=== PATIENT | male | born 1965 | race Hispanic/Latino ===

== ENCOUNTER → 2017-11-11 | Day surgery (SDC) | payer OTHER ==
[~2017-11-11] MED LIST: MIDAZOLAM HCL 2 MG/2 ML INJ ONE; PROPOFOL 200 MG/20 ML VIAL IV ONE; Ringers Lactate 1,000 ML IV ONE
--- OUTSIDE RECORDS SUMMARY | 2017-11-11 07:45 | XMS REPORT ---
:1965 Author Organization eClinicalWorks Care Team Providers Name Role Phone Shreyas Iain Provider Role Unavailable Allergies No Known Allergies Problems Problem Type Condition Code Onset Dates Condition Status Problem HTN, goal below 140/90 I10 Active Problem Mixed hyperlipidemia E78.2 Active Problem Hepatitis C virus infection without B19.20 Active hepatic coma, unspecified chronicity Assessment HTN, goal below 140/90 I10 Active Assessment Hepatitis C virus infection without B19.20 Active hepatic coma, unspecified chronicity Assessment Mixed hyperlipidemia E78.2 Active Medications Medication Code Code Instructions Start End Status Dosage System Date Date Losartan ND 07868337063 100 MG Orally Active 1 tablet Potassium Once a day Lovastatin ND [id number] 20 MG Orally Active 1 tablet Once a day with the evening meal Results No Known Results Summary Purpose eClinicalWorks Submission
--- OUTSIDE RECORDS SUMMARY | 2017-11-11 07:45 | XMS REPORT ---
:1965 Author Organization eClinicalWorks Care Team Providers Name Role Phone Surinder Mckeon Provider Role Unavailable Allergies No Known Allergies Problems Problem Type Condition Code Onset Dates Condition Status Problem HTN, goal below 140/90 I10 Active Problem Mixed hyperlipidemia E78.2 Active Problem Hepatitis C virus infection without B19.20 Active hepatic coma, unspecified chronicity Medications No Known Medications Results No Known Results Summary Purpose eClinicalWorks Submission
--- OUTSIDE RECORDS SUMMARY | 2017-11-11 07:45 | XMS REPORT ---
:1965 Author Organization [facility] Address [address] [place] [address] Care Team Providers Name Role Phone NINFA GOULD Unavailable Unavailable RON RICKY THELMA Unavailable Unavailable Problems This patient has no known problems. Allergies, Adverse Reactions, Alerts This patient has no known allergies or adverse reactions. Medications This patient has no known medications. Results Test Description Test Time Test Comments Text Results Atomic Results Result Comments URINE CULTURE 2016-12-05 13:17:00 Test Item Value Reference Range Comments CULTURE (BEAKER) (test ztem=5315) No growth COMPREHENSIVE METABOLIC [id number] 08:09:00 Test Item Value Reference Range Comments TOTAL PROTEIN (BEAKER) 7.0 gm/dL 6.0-8.3 (test ltoj=883) ALBUMIN (BEAKER) (test 3.3 g/dL 3.5-5.0 wzcy=6476) ALKALINE PHOSPHATASE 64 U/L 40-150 (BEAKER) (test vazr=182) BILIRUBIN TOTAL (BEAKER) 0.8 mg/dL 0.2-1.2 (test ogzr=453) SODIUM (BEAKER) (test 136 meq/L 136-145 nqui=188) POTASSIUM (BEAKER) (test 4.2 meq/L 3.5-5.1 rptl=219) CHLORIDE (BEAKER) (test 100 meq/L 98-107 qmoh=348) CO2 (BEAKER) (test 26 meq/L 22-29 hqvi=474) BLOOD UREA NITROGEN 14 mg/dL 7-21 (BEAKER) (test graj=228) CREATININE (BEAKER) (test 0.86 mg/dL 0.57-1.25 rxbe=627) GLUCOSE RANDOM (BEAKER) 94 mg/dL 70-105 (test akvl=730) CALCIUM (BEAKER) (test 8.7 mg/dL 8.4-10.2 yozx=638) AST (SGOT) (BEAKER) (test 27 U/L 5-34 ppho=598) ALT (SGPT) (BEAKER) (test 38 U/L 6-55 dbbm=112) EGFR (BEAKER) (test 93 mL/min/1.73 sq m ESTIMATED GFR IS NOT chcu=4191) ACCURATE CREATININE CLEARANCE IN PREDICTING GLOMERULAR FILTRATION RATE. ESTIMATED GFR IS NOT APPLICABLE FOR DIALYSIS PATIENTS. CBC W/PLT COUNT & AUTO [id number] 07:53:00 Test Item Value Reference Range Comments WHITE BLOOD CELL COUNT (BEAKER) (test ohkm=711) 10.3 K/ L 3.5-10.5 RED BLOOD CELL COUNT (BEAKER) (test bxfx=734) 4.00 M/ L 4.63-6.08 HEMOGLOBIN (BEAKER) (test bpba=001) 12.8 GM/DL 13.7-17.5 HEMATOCRIT (BEAKER) (test dcjt=583) 39.0 % 40.1-51.0 MEAN CORPUSCULAR VOLUME (BEAKER) (test tpdj=068) 97.5 fL 79.0-92.2 MEAN CORPUSCULAR HEMOGLOBIN (BEAKER) (test 32.0 pg 25.7-32.2 zidv=992) MEAN CORPUSCULAR HEMOGLOBIN CONC (BEAKER) (test 32.8 GM/DL 32.3-36.5 umuh=878) RED CELL DISTRIBUTION WIDTH (BEAKER) (test 12.9 % 11.6-14.4 tjry=208) PLATELET COUNT (BEAKER) (test eyhf=572) 519 K/CU MM 150-450 MEAN PLATELET VOLUME (BEAKER) (test vzbr=455) 8.7 fL 9.4-12.4 NUCLEATED RED BLOOD CELLS (BEAKER) (test 0 /100 WBC 0-0 cnwz=080) NEUTROPHILS RELATIVE PERCENT (BEAKER) (test 69 % abyo=059) LYMPHOCYTES RELATIVE PERCENT (BEAKER) (test 14 % cxih=210) MONOCYTES RELATIVE PERCENT (BEAKER) (test 11 % wayi=913) EOSINOPHILS RELATIVE PERCENT (BEAKER) (test 3 % rbqt=528) BASOPHILS RELATIVE PERCENT (BEAKER) (test 1 % xxuw=395) NEUTROPHILS ABSOLUTE COUNT (BEAKER) (test 7.07 K/ L 1.78-5.38 hcba=864) LYMPHOCYTES ABSOLUTE COUNT (BEAKER) (test 1.41 K/ L 1.32-3.57 mffc=950) MONOCYTES ABSOLUTE COUNT (BEAKER) (test 1.12 K/ L 0.30-0.82 ifjf=717) EOSINOPHILS ABSOLUTE COUNT (BEAKER) (test 0.27 K/ L 0.04-0.54 hokx=952) BASOPHILS ABSOLUTE COUNT (BEAKER) (test 0.07 K/ L 0.01-0.08 phzl=554) IMMATURE GRANULOCYTES-RELATIVE PERCENT (BEAKER) 4 % 0-1 (test zmbv=5353) PROTHROMBIN [id number] 06:49:00 Test Item Value Reference Range Comments PROTIME (BEAKER) (test kwma=164) 15.9 seconds 11.7-14.7 INR (BEAKER) (test cyzv=263) 1.3 <=5.9 RECOMMENDED COUMADIN/WARFARIN INR THERAPY RANGESSTANDARD DOSE: 2.0 - 3.0 Includes: PROPHYLAXIS forvenous thrombosis, systemic embolization; TREATMENT for venous thrombosis and/or pulmonary embolus.HIGH RISK: Target INR is 2.5-3.5 for patients with mechanical heart valves.RAPID STREP A [id number] 17:49: 00 Test Item Value Reference Range Comments STREP A ANTIGEN (BEAKER) (test qafo=024) Negative Negative URINALYSIS W/ [id number] 17:39:00 Test Item Value Reference Range Comments COLOR (BEAKER) (test iaky=988) Light Yellow CLARITY (BEAKER) (test wike=110) Clear SPECIFIC GRAVITY UA (BEAKER) (test 1.004 1.001-1.035 mmyx=860) PH UA (BEAKER) (test hkfl=775) 6.0 5.0-8.0 PROTEIN UA (BEAKER) (test bxti=024) Negative Negative GLUCOSE UA (BEAKER) (test lnwm=222) Negative Negative KETONES UA (BEAKER) (test ofrn=785) Negative Negative BILIRUBIN UA (BEAKER) (test yzid=057) Negative Negative BLOOD UA (BEAKER) (test gpyn=864) Negative Negative NITRITE UA (BEAKER) (test clxn=044) Negative Negative LEUKOCYTE ESTERASE UA (BEAKER) (test Negative Negative hein=515) UROBILINOGEN UA (BEAKER) (test yrpw=030) 2.0 mg/dL 0.2-1.0 RBC UA (BEAKER) (test rbeh=360) 0 /HPF WBC UA (BEAKER) (test bmiw=800) < /HPF SQUAMOUS EPITHELIAL (BEAKER) (test < /HPF idzo=944) SOURCE(BEAKER) (test jcpu=2306) Urine, Clean Catch RAD, ABDOMEN/KUB, 1 VIEW [id number] 10:41:00Reason for exam:-> constipationFINAL REPORT Two abdomen images Discussion: Nonspecific bowel gas pattern with air-filled mildly prominent small bowel loops. No particularly concerning degree of retained feces.No evidence of free intraperitoneal air. Signed: Denzel Rebolledo Verified Date/Time: 2016 10:41:38 Reading Location: [facility] Radiology Reading Room TISSUE [id number] 09:25:00Surgical Pathology Report Case: [id number] Authorizing Provider: Ricky Villalpando Collected: 11/24/2016 1154 MD Thelma [facility] Received: 2016 1307 SERVICES Pathologist: Jose G Shepard MD Specimens: A) -Condyle,Left Knee B) - Condyle, Right Knee A. BONE AND SOFT TISSUE, LEFT KNEE, ARTHROPLASTY: - OSTEOARTHRITIS AND CHRONIC SYNOVITIS B. BONE AND SOFT TISSUE, RIGHT KNEE, ARTHROPLASTY: - OSTEOARTHRITIS AND CHRONIC SYNOVITIS Signing Pathologist Direct PhoneLine : [phone] signed by Joes G Shepard MD on 12/02/2016 at 9:25 [id number] left kneeA. Left knee condyle; B. Right knee condyleThe specimen is received in two containers of formalin both labeled with the patient's information.Specimen A labeled "left knee condyle" and consists of multiple fragments of graham-pink knee bone and soft tissue measuring 8 x 6 x 2 cm in aggregate. Bone fragments have distinct osteophyte formation with focal areas of eburnation. Section code: A1 and A2, bone submitted for decalcification; A3, soft tissue and bone submitted fordecalcification. Specimen A labeled "right knee condyle" and consists of multiple fragments of graham-pink knee bone and soft tissue measuring 6.5 x 6 x 3 cm in aggregate. Bone fragments have distinct osteophyte formation with focal areas of eburnation. Section code: B1 and B2, bone submitted for decalcification ; B3, soft tissue and bone submitted for decalcification. CG/pl A, B. The synovial tissue reveals subsynovial edema with chronic inflammation.HEMOGLOBIN AND [id number] 09:32:00 Test Item Value Reference Range Comments HEMOGLOBIN (BEAKER) (test dvhe=809) 11.9 GM/DL 13.7-17.5 HEMATOCRIT (BEAKER) (test vfpf=647) 36.1 % 40.1-51.0 BASIC METABOLIC [id number] 08:09:00 Test Item Value Reference Range Comments SODIUM (BEAKER) (test 135 meq/L 136-145 wkxe=555) POTASSIUM (BEAKER) (test 4.1 meq/L 3.5-5.1 jziw=261) CHLORIDE (BEAKER) (test 100 meq/L 98-107 qwgm=424) CO2 (BEAKER) (test 27 meq/L 22-29 fzdo=877) BLOOD UREA NITROGEN 10 mg/dL 7-21 (BEAKER) (test mpjc=882) CREATININE (BEAKER) (test 1.06 mg/dL 0.57-1.25 mnrm=093) GLUCOSE RANDOM (BEAKER) 131 mg/dL 70-105 (test rjkx=258) CALCIUM (BEAKER) (test 8.7 mg/dL 8.4-10.2 uffv=601) EGFR (BEAKER) (test 73 mL/min/1.73 sq m ESTIMATED GFR IS NOT dbyt=5003) ACCURATE CREATININE CLEARANCE IN PREDICTING GLOMERULAR FILTRATION RATE. ESTIMATED GFR IS NOT APPLICABLE FOR DIALYSIS PATIENTS. HEMOGLOBIN AND [id number] 07:45:00 Test Item Value Reference Range Comments HEMOGLOBIN (BEAKER) (test qcla=141) 13.8 GM/DL 13.7-17.5 HEMATOCRIT (BEAKER) (test vfra=311) 40.7 % 40.1-51.0 BASIC METABOLIC [id number] 06:44:00 Test Item Value Reference Range Comments SODIUM (BEAKER) (test 136 meq/L 136-145 fqhu=976) POTASSIUM (BEAKER) (test 4.0 meq/L 3.5-5.1 yaro=890) CHLORIDE (BEAKER) (test 105 meq/L 98-107 vibb=108) CO2 (BEAKER) (test 25 meq/L 22-29 pnqz=902) BLOOD UREA NITROGEN 9 mg/dL 7-21 (BEAKER) (test bwcy=285) CREATININE (BEAKER) (test 0.83 mg/dL 0.57-1.25 rlvt=569) GLUCOSE RANDOM (BEAKER) 117 mg/dL 70-105 (test zwen=240) CALCIUM (BEAKER) (test 8.2 mg/dL 8.4-10.2 rqpe=153) EGFR (BEAKER) (test 97 mL/min/1.73 sq m ESTIMATED GFR IS NOT dcxn=2718) ACCURATE CREATININE CLEARANCE IN PREDICTING GLOMERULAR FILTRATION RATE. ESTIMATED GFR IS NOT APPLICABLE FOR DIALYSIS PATIENTS. HEMOGLOBIN AND [id number] 06:19:00 Test Item Value Reference Range Comments HEMOGLOBIN (BEAKER) (test erml=479) 14.7 GM/DL 13.7-17.5 HEMATOCRIT (BEAKER) (test kjgg=686) 43.7 % 40.1-51.0 RAD, KNEE, 1 OR 2 VIEWS, [id number] 16:42:00Of operative side while in recovery room.Reason for exam:->eval implantsFINAL REPORT COMPARISON: No comparison left knee imaging HISTORY: Left knee pain, status post knee arthroplasty FINDINGS: AP and lateral radiographs of the left knee demonstratepostoperative changes consistent with total arthroplasty. Arthroplasty alignment appears anatomic. No periprosthetic fracture is identified. Signed: Justino Rivera Verified Date/Time: 11/24/2016 16:42: 12 Reading Location: [facility] Radiology Reading Room RAD, KNEE, 1 OR 2 VIEWS, [id number] 16:33:00Of operative side while in recovery room.Reason for exam:->eval implantsFINAL REPORT EXAM: AP and lateral views of the right knee HISTORY PROVIDED: Evaluate implants COMPARISON: None available IMPRESSION:The patient is status post right total knee arthroplasty with hardware in place in gross alignment. No fracture or dislocation. There is postoperative soft tissue swelling and air. Signed: Justino Alcaraz MDRepwestern missouri medical center Verified Date/Time: 11/24/201616:33:57 Reading Location: [facility] Mammo Reading Room
--- OUTSIDE RECORDS SUMMARY | 2017-11-11 07:45 | XMS REPORT | Clinical Summary ---
:1965 Author Organization [facility] Address [address] [place] [address] Phone Care Team Providers Name Role Phone Unavailable Primary Care Provider Unavailable Allergies Active Allergy Reactions Severity Noted Date Comments Nsaids (Non-Steroidal Nausea And Vomiting, Other 11/22/2016 Abdominal pain Anti-Inflammatory Drug) (See Comments) Current Medications Prescription Sig. Disp. Refills Start Date End Date Status famotidine (PEPCID) Take 1 tablet 60 tablet 0 12/08/2016 Active 20 MG tablet (20 mg total) by mouth 2 (two) times daily. losartan (COZAAR) Take 1 tablet 30 tablet 0 12/09/2016 Active 100 MG tablet (100 mg total) 8 by mouth daily. atorvastatin Take 1 tablet 30 tablet 0 12/08/2016 Active (LIPITOR) 10 MG (10 mg total) 8 tablet by mouth nightly. rivaroxaban Take 1 tablet 30 tablet 0 12/09/2016 Active (XARELTO) 10 mg Tab (10 mg total) tablet by mouth daily with dinner. senna-docusate Take 2 tablets 60 tablet 0 12/09/2016 Active (SENOKOT S) 8.6-50 by mouth daily 8 mg per tablet before lunch. tamsulosin (FLOMAX) Take 1 capsule 30 capsule 0 12/09/2016 Active 0.4 mg Cp24 24 hr (0.4 mg total) capsule by mouth daily. acetaminophen Take 650 mg by Discontinued (TYLENOL) 325 MG mouth every 6 7 tablet (six) hours as needed for Pain. UNKNOWN Unknown pain Discontinued medication . 7 losartan (COZAAR) Take 100 mg by Discontinued 100 MG tablet mouth daily. 7 lovastatin Take 20 mg by Discontinued (MEVACOR) 20 MG mouth nightly. 7 tablet HYDROcodone-acetami Take 1-2 60 tablet 0 11/26/2016 Discontinued nophen (NORCO tablets by 7 10-325) 10-325 mg mouth every 4 per tablet (four) hours as needed for Pain for up to 15 days. Max Daily Amount: 12 tablets rivaroxaban Take 1 tablet 14 tablet 0 11/26/2016 Discontinued (XARELTO) 10 mg Tab (10 mg total) 7 tablet by mouth daily with dinner for 14 days. senna-docusate Take 2 tablets 60 tablet 0 12/03/2016 Discontinued (SENOKOT S) 8.6-50 by mouth daily 7 mg per tablet before lunch for 30 days. HYDROcodone-acetami Take 1 tablet 60 tablet 0 12/08/2016 nophen (NORCO by mouth every 7 10-325) 10-325 mg 6 (six) hours per tablet as needed for Pain for up to 10 days. Max Daily Amount: 4 tablets polyethylene glycol Take 17 g by 14 each 0 12/09/2016 (GLYCOLAX) 17 gram mouth daily for 7 packet 3 days. traZODone (DESYREL) Take 0.5 15 tablet 0 12/08/2016 50 MG tablet tablets (25 mg 7 total) by mouth every night as needed for up to 30 days. Active Problems Problem Noted Date Odynophagia 12/03/2016 Essential hypertension 12/03/2016 Bilateral primary osteoarthritis of knee 11/24/2016 Encounters Date Type Specialty Care Team Description 12/03/2016 [facility] and [facility] [place], Bilateral primary - Encounter Rehabilitation Erasmo Kern osteoarthritis of 12/09/2016 knee;Acute pain of both knees;Odynophagia;Ess ential hypertension;Acute bilateral low back pain without sciatica;Gait abnormality 11/24/2016 [facility], Osteoarthritis of - Encounter Medicine Ricky both knees, 12/03/2016 MD Devan unspecified osteoarthritis type;Bilateral primary osteoarthritis of knee;Impaired functional mobility, balance, gait, and endurance;Chronic pain of both knees;Gait abnormality 11/24/2016 Procedure Pass 11/24/2016 Surgery Irasema, ARTHROPLASTY,KNEE Ricky BILATERAL MD Devan 11/23/2016 Hospital Pre-Admission Testing Irasema, Encounter Ricky Hartman MD 11/23/2016 Anesthesia Event Aura Basurto MD 11/23/2016 Orders Only General Internal Medicine 11/22/2016 Hospital Pre-Admission Testing Encounter after 11/10/2016 Social History Tobacco Use Types Packs/Day Years Used Date Never Smoker Smokeless Tobacco: Never Used Alcohol Use Drinks/Week oz/Week Comments Yes occasionally Sex Assigned at Date Recorded Not on file Last Filed Vital Signs Vital Sign Reading Time Taken Blood Pressure 118/74 12/09/2016 4:42 AM CDT Pulse 84 12/09/2016 4:42 AM CDT Temperature 36.8 C (98.2 F) 12/09/2016 4:42 AM CDT Respiratory Rate 16 12/09/2016 4:42 AM CDT Oxygen Saturation 99% 12/09/2016 4:42 AM CDT Inhaled Oxygen Concentration - - Weight 108.3 kg (238 lb 12.8 oz) 12/03/2016 11:51 AM CDT Height 170.2 cm (5' 7") 12/03/2016 11:51 AM CDT Body Mass Index 37.4 12/03/2016 11:51 AM CDT Plan of Treatment Not on file Implants Implanted Type Area Network Support Manager Device Expiration Model / Serial Identifier Date / Lot Cement Bone Smplx Hv W Gentam 6195-1-001 - [id number] Cement/Maurizio Left: AZAEL:AZAEL 03/16/2018 6195-1-001 / Implanted: Qty: 2 on 11/24/2016 by Ricky Villalpando MD ler/Adhesi Knee ORTHOPAEDICS / ve [id number] Cement Bone Smplx Hv W Gentam 6195-1-001 - [id number] Cement/Maurizio Right: AZAEL:AZAEL 03/16/2018 6195-1-001 / Implanted: Qty: 2 on 11/24/2016 by Ricky Villalpando MD ler/Adhesi Knee ORTHOPAEDICS / ve [id number] Femur Ceneted Ps Right Seize 9 Joints Right: Marina 07/14/2021 [id number] / Implanted: Qty: 1 on 11/24/2016 by Ricky Villalpando MD Knee / [id number] Cemented Stem L [id number] - [id number] Joints Left: MARINA:MARINA 08/13/2026 [id number] / Implanted: Qty: 1 on 11/24/2016 by Ricky Villalpando MD Knee US / [id number] Fem Sz 9 L [id number] - [id number] Joints Left: MARINA:MARINA 2026 [id number] / Implanted: Qty: 1 on 11/24/2016 by Ricky Villalpando MD Knee US / [id number] Patella Cemented 35mm [id number] - [id number] Joints Left: MARINA: CTRPULSE 08/13/2024 [id number] / Implanted: Qty: 1 on 11/24/2016 by Ricky Villalpando MD Knee : ORTHO / [id number] Fixed Bearing Ps Left 10mm Height Joints Left: Marina 08/13/2021 [id number] / Implanted: Qty: 1 on 11/24/2016 by Ricky Villalpando MD Knee / [id number] Patella Cemented 35mm [id number] - [id number] Joints Right: MARINA: CTRPULSE 10/14/2024 [id number] / Implanted: Qty: 1 on 11/24/2016 by Ricky Villalpando MD Knee : ORTHO / [id number] Natrual Tibia Cementd 5 Degree Stemmed Size F Joints Right: 05/14/2026 [id number] / Implanted: Qty: 1 on 11/24/2016 by Ricky Villalpando MD Knee / [id number] Fem Sz 9 R [id number] - [id number] Joints Right: MARINA:MARINA 2026 [id number] / Implanted: Qty: 1 on 11/24/2016 by Ricky Villalpando MD Knee US / [id number] Procedures Procedure Name Priority Date/Time Associated Diagnosis Comments ARTHROPLASTY,KNEE 11/24/2016 11:10 AM Osteoarthritis of both BILATERAL CDT knees, unspecified osteoarthritis type Case Notes PRECERT REQUIRED Special Needs (SPINAL EPIDURAL WITH PERIPHERAL NERVE BLOCK, MARINA PERSONA ) after 11/10/2016 Results CBC with platelet count + automated diff (12/04/2016 6:00 AM) Component Value Ref Range WBC 10.3 3.5 - 10.5 K/L RBC 4.00 (L) 4.63 - 6.08 M/L Hemoglobin 12.8 (L) 13.7 - 17.5 GM/DL Hematocrit 39.0 (L) 40.1 - 51.0 % MCV 97.5 (H) 79.0 - 92.2 fL MCH 32.0 25.7 - 32.2 pg MCHC 32.8 32.3 - 36.5 GM/DL RDW 12.9 11.6 - 14.4 % Platelets 519 (H) 150 - 450 K/CU MM MPV 8.7 (L) 9.4 - 12.4 fL nRBC 0 0 - 0 /100 WBC % Neutros 69 % % Lymphs 14 % % Monos 11 % % Eos 3 % % Baso 1 % # Neutros 7.07 (H) 1.78 - 5.38 K/L # Lymphs 1.41 1.32 - 3.57 K/L # Monos 1.12 (H) 0.30 - 0.82 K/L # Eos 0.27 0.04 - 0.54 K/L # Baso 0.07 0.01 - 0.08 K/L Immature Granulocytes-Relative 4 (H) 0 - 1 % Specimen Performing Laboratory Blood - Arm, [address] [address] Prothrombin time/INR (12/04/2016 6:00 AM) Component Value Ref Range Protime 15.9 (H) 11.7 - 14.7 seconds INR 1.3 <=5.9 Specimen Performing Laboratory Blood - Arm, [address] [address] Narrative RECOMMENDED COUMADIN/WARFARIN INR THERAPY RANGES STANDARD DOSE: 2.0 - 3.0 Includes: PROPHYLAXIS for venous thrombosis, systemic embolization; TREATMENT for venous thrombosis and/or pulmonary embolus. HIGH RISK: Target INR is 2.5-3.5 for patients with mechanical heart valves. CBC with platelet count + automated diff (12/04/2016 6:00 AM) Specimen Performing Laboratory Blood Narrative The following orders were created for panel order CBC with platelet count + automated diff. Procedure Abnormality Status --------- ------ CBC with platelet count ...[[id number]]AbnormalFinal result Please view results for these tests on the individual orders. Comprehensive metabolic panel (12/04/2016 6:00 AM) Component Value Ref Range Protein, Total 7.0 6.0 - 8.3 gm/dL Albumin 3.3 (L) 3.5 - 5.0 g/dL Alkaline Phosphatase 64 40 - 150 U/L Total Bilirubin 0.8 0.2 - 1.2 mg/dL Sodium 136 136 - 145 meq/L Potassium 4.2 3.5 - 5.1 meq/L Chloride 100 98 - 107 meq/L CO2 26 22 - 29 meq/L BUN 14 7 - 21 mg/dL Creatinine 0.86 0.57 - 1.25 mg/dL Glucose 94 70 - 105 mg/dL Calcium 8.7 8.4 - 10.2 mg/dL AST 27 5 - 34 U/L ALT 38 6 - 55 U/L EGFR 93Comment: ESTIMATED GFR IS NOT ACCURATE mL/min/1.73 sq m CREATININE CLEARANCE IN PREDICTING GLOMERULAR FILTRATION RATE. ESTIMATED GFR IS NOT APPLICABLE FOR DIALYSIS PATIENTS. Specimen Performing Laboratory Blood - Arm, Right [address] [address] Urinalysis w/ Microscopic (12/03/2016 5:05 PM) Component Value Ref Range Color, UA Light Yellow Clarity, UA Clear Specific [place]on, UA 1.004 1.001 - 1.035 pH, UA 6.0 5.0 - 8.0 Protein, UA Negative Negative Glucose, UA Negative Negative Ketones, UA Negative Negative Bilirubin, UA Negative Negative Blood, UA Negative Negative Nitrite, UA Negative Negative Leukocytes, UA Negative Negative Urobilinogen, UA 2.0 (H) 0.2 - 1.0 mg/dL RBC, UA 0 /HPF WBC, UA <1 /HPF Squam Epithel, UA <1 /HPF Specimen Source Urine, Clean Catch Specimen Performing Laboratory Urine - Urine, Clean Catch [address] [address] Urine culture (12/03/2016 5:05 PM) Component Value Ref Range Result No growth Specimen Performing Laboratory Urine - Urine, Clean Catch [address] [address] Rapid Strep A screen (12/03/2016 4:00 PM) Component Value Ref Range Strep A Ag Negative Negative Specimen Performing Laboratory Throat [address] [address] XR abdomen / KUB 1 view (12/03/2016 9:46 AM) Specimen Performing Laboratory GE RIS Narrative FINAL REPORT Two abdomen images Discussion: Nonspecific bowel gas pattern with air-filled mildly prominent small bowel loops. No particularly concerning degree of retained feces. No evidence of free intraperitoneal air. Signed: Denzel Rebolledo MD Report Verified Date/Time:12/03/2016 10:41:38 Reading Location: [facility] Radiology Reading Room Procedure Note Interface, External Ris In - 12/03/2016 10:43 AM CDT FINAL REPORT Two abdomen images Discussion: Nonspecific bowel gas pattern with air-filled mildly prominent small bowel loops. No particularly concerning degree of retained feces. No evidence of free intraperitoneal air. Signed: Denzel Rebolledo MD Report Verified Date/Time: 12/03/2016 10:41:38 Reading Location: [facility] Radiology Reading Room Hemoglobin and hematocrit (11/28/2016 8:46 AM)Only the most recent of3 resultswithin the time period is included. Component Value Ref Range Hemoglobin 11.9 (L) 13.7 - 17.5 GM/DL Hematocrit 36.1 (L) 40.1 - 51.0 % Specimen Performing Laboratory Blood - Arm, Right [address] [address] Basic Metabolic Panel (11/26/2016 7:29 AM)Only the most recent of2 resultswithin the time period is included. Component Value Ref Range Sodium 135 (L) 136 - 145 meq/L Potassium 4.1 3.5 - 5.1 meq/L Chloride 100 98 - 107 meq/L CO2 27 22 - 29 meq/L BUN 10 7 - 21 mg/dL Creatinine 1.06 0.57 - 1.25 mg/dL Glucose 131 (H) 70 - 105 mg/dL Calcium 8.7 8.4 - 10.2 mg/dL EGFR 73Comment: ESTIMATED GFR IS NOT ACCURATE mL/min/1.73 sq m CREATININE CLEARANCE IN PREDICTING GLOMERULAR FILTRATION RATE. ESTIMATED GFR IS NOT APPLICABLE FOR DIALYSIS PATIENTS. Specimen Performing Laboratory Blood - Arm, [place] [address] TRANSFUSION SERVICE REPORT - SCAN (11/24/2016 5:43 PM)XR knee 1 or 2 views right (11/24/2016 3:54 PM) Specimen Performing Laboratory GE RIS Narrative FINAL REPORT EXAM: AP and lateral views of the right knee HISTORY PROVIDED: Evaluate implants COMPARISON: None available IMPRESSION: The patient is status post right total knee arthroplasty with hardware in place in gross alignment. No fracture or dislocation. There is postoperative soft tissue swelling and air. Signed: Justino Alcaraz MD Report Verified Date/Time:11/24/2016 16:33:57 Reading Location: [facility] Reading Room Procedure Note Interface, External Ris In - 11/24/2016 4:36 PM CDT FINAL REPORT EXAM: AP and lateral views of the right knee HISTORY PROVIDED: Evaluate implants COMPARISON: None available IMPRESSION: The patient is status post right total knee arthroplasty with hardware in place in gross alignment. No fracture or dislocation. There is postoperative soft tissue swelling and air. Signed: Justino Alcaraz MD Report Verified Date/Time: 11/24/2016 16:33:57 Reading Location: [facility] [place] Reading Room knee 1 or 2 views left (11/24/2016 3:54 PM) Specimen Performing Laboratory GE RIS Narrative FINAL REPORT COMPARISON: No comparison left knee imaging HISTORY: Left knee pain, status post knee arthroplasty FINDINGS: AP and lateral radiographs of the left knee demonstrate postoperative changes consistent with total arthroplasty. Arthroplasty alignment appears anatomic. No periprosthetic fracture is identified. Signed: Justino Rivera MD Report Verified Date/Time:11/24/2016 16:42:12 Reading Location: [facility] Radiology Reading Room Procedure Note Interface, External Ris In - 11/24/2016 4:44 PM CDT FINAL REPORT COMPARISON: No comparison left knee imaging HISTORY: Left knee pain, status post knee arthroplasty FINDINGS: AP and lateral radiographs of the left knee demonstrate postoperative changes consistent with total arthroplasty. Arthroplasty alignment appears anatomic. No periprosthetic fracture is identified. Signed: Justino Rivera MD Report Verified Date/Time: 11/24/2016 16:42:12 Reading Location: [facility] Radiology Reading Room Tissue Exam (11/24/2016 11:54 AM) Component Value Ref Range Case Report Surgical Pathology Report Case: [id number] Authorizing Provider:Ricky Villalpando Collected: 11/24/2016 1154 MD Devan Ordering Location: [facility] PERIOPERATIVE Received: 11/24/2016 1307 SERVICES Pathologist: Jose G Shepard MD Specimens: A) - Condyle,Left Knee B) - Condyle,Right Knee DIAGNOSIS A. BONE AND SOFT TISSUE, LEFT KNEE, ARTHROPLASTY: - OSTEOARTHRITIS AND CHRONIC SYNOVITIS B. BONE AND SOFT TISSUE, RIGHT KNEE, ARTHROPLASTY: - OSTEOARTHRITIS AND CHRONIC SYNOVITIS Signing Pathologist Direct Phone Line: [phone] CPT Code(s) 22706 X2 75735 X2 CLINICAL HISTORY Osteoarthritis left knee SPECIMEN SOURCE A. Left knee condyle; B. Right knee condyle GROSS DESCRIPTION The specimen is received in two containers of formalin both labeled with the patient's information. Specimen A labeled "left knee condyle" and consists of multiple fragments of graham-pink knee bone and soft tissue measuring 8 x 6 x 2 cm in aggregate. Bone fragments have distinct osteophyte formation with focal areas of eburnation. Section code: A1 and A2, bone submitted for decalcification; A3, soft tissue and bone submitted for decalcification. Specimen A labeled "right knee condyle" and consists of multiple fragments of graham-pink knee bone and soft tissue measuring 6.5 x 6 x 3 cm in aggregate. Bone fragments have distinct osteophyte formation with focal areas of eburnation. Section code: B1 and B2, bone submitted for decalcification; B3, soft tissue and bone submitted for decalcification. CG/pl MICROSCOPIC DESCRIPTION A, B. The synovial tissue reveals subsynovial edema with chronic inflammation. Specimen Performing Laboratory Tissue - Condyle,Left Knee; Tissue - [facility] Condyle,Right Knee [address] [place] [address] ANESTHESIA PERIPHERAL BLOCK (11/24/2016 10:37 AM)Only the most recent of2 resultswithin the time period is included. Narrative Manuel Hull MD 11/24/2016 10:37 AM Peripheral Block Patient location during procedure: pre-op Start time: 11/24/2016 9:57 AM End time: 11/24/2016 10:08 AM Reason for block: procedure for pain, at surgeon's request and post-op pain management Staffing Anesthesiologist: MANUEL HULL Performed by: anesthesiologist Preanesthetic Checklist Completed: patient identified, site marked, surgical consent, pre-op evaluation, timeout performed, IV checked, risks and benefits discussed and monitors and equipment checked Peripheral Block Patient position: supine Prep: ChloraPrep Patient monitoring: heart rate, pvc monitor and continuous pulse ox Block type: Adductor canal Laterality: right Injection technique: catheter Procedures: ultrasound guided and landmark technique Local infiltration: ropivicaine Infiltration strength: 0.5 % Dose: 25 mL Needle Needle type: Tuohy Needle gauge: 17 G Needle length: 100 mm Catheter type: open end Catheter size: 19 G Test dose: negative Assessment Injection assessment: negative aspiration for heme, no paresthesia on injection, incremental injection and local visualized surrounding nerve on ultrasound Paresthesia pain: none Heart rate change: no Slow fractionated injection: yes Additional Notes Patient tolerated well.No pain on injection or throughout procedure. Procedure Note Manuel Hull MD - 11/24/2016 10:32 AM CDT Peripheral Block Patient location during procedure: pre-op Start time: 11/24/2016 9:57 AM End time: 11/24/2016 10:08 AM Reason for block: procedure for pain, at surgeon's request and post-op pain management Staffing Anesthesiologist: MANUEL HULL Performed by: anesthesiologist Preanesthetic Checklist Completed: patient identified, site marked, surgical consent, pre-op evaluation , timeout performed, IV checked, risks and benefits discussed and monitors and equipment checked Peripheral Block Patient position: supine Prep: ChloraPrep Patient monitoring: heart rate, pvc monitor and continuous pulse ox Block type: Adductor canal Laterality: right Injection technique: catheter Procedures: ultrasound guided and landmark technique Local infiltration: ropivicaine Infiltration strength: 0.5 % Dose: 25 mL Needle Needle type: Tuohy Needle gauge: 17 G Needle length: 100 mm Catheter type: open end Catheter size: 19 G Test dose: negative Assessment Injection assessment: negative aspiration for heme, no paresthesia on injection , incremental injection and local visualized surrounding nerve on ultrasound Paresthesia pain: none Heart rate change: no Slow fractionated injection: yes Additional Notes Patient tolerated well. No pain on injection or throughout procedure. ANESTHESIA CSE BLOCK (11/24/2016 10:37 AM) Manuel Guerrero MD 11/24/2016 10:37 AM CSE Block Patient location during procedure: Block Room Start time: 11/24/2016 9:45 AM End time: 11/24/2016 9:49 AM Reason for block: procedure for pain, at surgeon's request and post-op pain management Staffing Anesthesiologist: MANUEL HULL Performed by: anesthesiologist Preanesthetic Checklist Completed: patient identified, site marked, surgical consent, pre-op evaluation, timeout performed, IV checked, risks and benefits discussed and monitors and equipment checked CSE Patient position: sitting Prep: Betadine and ChloraPrep Patient monitoring: heart rate, pvc monitor and continuous pulse ox Approach: midline Spinal Needle Needle type: Pencan Needle gauge: 25 G Needle length: 13 cm Epidural Needle Injection technique: SHIREEN air Needle type: Tuohy Needle gauge: 17 G Needle length: 9 cm Location: lumbar (1-5) Catheter Catheter type: none Catheter size: 19. Test dose: negative Assessment Sensory level: T10 Events: cerebrospinal fluid Additional Notes Consented, risk and benefits discussed with patient, sitting, 17 g touhy/25 g pencan spinal needle, sterile prep and drape, hat mask, betadine x 3, 1st att, easy, csf with spinal needle only, SHIREEN air 2cc with touhy needle, epidural cathether up 3cm, neg test, aspiration, resistance, paresthesia, T10 sensory. IV fluid bolus 400cc. Procedure Note Manuel Hull MD - 11/24/2016 10:32 AM CDT CSE Block Patient location during procedure: Block Room Start time: 11/24/2016 9:45 AM End time: 11/24/2016 9:49 AM Reason for block: procedure for pain, at surgeon's request and post-op pain management Staffing Anesthesiologist: MANUEL HULL Performed by: anesthesiologist Preanesthetic Checklist Completed: patient identified, site marked, surgical consent, pre-op evaluation , timeout performed, IV checked, risks and benefits discussed and monitors and equipment checked CSE Patient position: sitting Prep: Betadine and ChloraPrep Patient monitoring: heart rate, pvc monitor and continuous pulse ox Approach: midline Spinal Needle Needle type: Pencan Needle gauge: 25 G Needle length: 13 cm Epidural Needle Injection technique: SHIREEN air Needle type: Tuohy Needle gauge: 17 G Needle length: 9 cm Location: lumbar (1-5) Catheter Catheter type: none Catheter size: 19. Test dose: negative Assessment Sensory level: T10 Events: cerebrospinal fluid Additional Notes Consented, risk and benefits discussed with patient, sitting, 17 g touhy/25 g pencan spinal needle, sterile prep and drape, hat mask, betadine x 3, 1st att, easy, csf with spinal needle only, SHIREEN air 2cc with touhy needle, epidural cathether up 3cm, neg test, aspiration, resistance, paresthesia, T10 sensory. IV fluid bolus 400cc. ECG 12 lead (11/23/2016 11:09 AM) Specimen Performing Laboratory GE MUSE Narrative Ventricular Rate 71 BPM Atrial Rate 71 BPM P-R Interval 176 ms QRS Duration 88 ms Q-T Interval 390 ms QTC Calculation(Bazett) 423 ms P Grimsley 28 degrees R Grimsley 0 degrees T Grimsley 18 degrees Normal sinus rhythm Normal ECG No previous ECGs available Confirmed by MD Ferro Roberto ([id number]) on 11/23/2016 2:06:54 PM Procedure Note Interface, External Ris In - 11/23/2016 2:07 PM CDT Ventricular Rate 71 BPM Atrial Rate 71 BPM P-R Interval 176 ms QRS Duration 88 ms Q-T Interval 390 ms QTC Calculation(Bazett) 423 ms P Grimsley 28 degrees R Grimsley 0 degrees T Grimsley 18 degrees Normal sinus rhythm Normal ECG No previous ECGs available Confirmed by MD Ferro Roberto ([id number]) on 11/23/2016 2:06:54 PM Type and screen, automated (11/23/2016 11:08 AM) Component Value Ref Range ABO/RH AUTOMATED (BEAKER) O NEGATIVE Ab Scrn NEGATIVE Specimen Performing Laboratory Blood [facility] [address] [address] after 11/10/2016
--- NOTE | 2017-11-11 09:42 | ENDO RPT ---
[address], [address] COLONOSCOPY PROCEDURE REPORT EXAM DATE: 11/11/2017 PATIENT NAME: Alan Tapia MR #: [id number] BIRTHDATE: 1965 ATTENDING: Surinder Mckeon DR STATUS: outpatient LICENSED APPRAISER: Carol Ballesteros RN and Albin Basurto [facility] INDICATIONS: The patient is a 52 yr old Male here for a colonoscopy due to colon cancer screening PROCEDURE PERFORMED: Colonoscopy with biopsy - cold polypectomy MEDICATIONS: Per Anesthesia. ESTIMATED BLOOD LOSS: None CONSENT: The patient understands the risks and benefits of the procedure and understands that these risks include, but are not limited to: sedation, allergic reaction, infection, perforation and/or bleeding. Alternative means of evaluation and treatment include, among others: physical exam, x-rays, and/or surgical intervention. The patient elects to proceed with this endoscopic procedure. DESCRIPTION OF PROCEDURE: During intra-op preparation period all mechanical medical equipment was checked for proper function. Hand hygiene and appropriate measures for infection prevention was taken. Procedure, possible complications, alternatives including, but not limited to possibility of bleeding, perforation, tear, infection, sepsis, need for surgery, need for blood transfusion, were explained to the patient. After the risks, benefits and alternatives of the procedure were thoroughly explained, Informed consent was verified, confirmed and timeout was successfully executed by the treatment team. The patient was placed in the left lateral position. A digital rectal exam was performed and revealed internal hemorrhoids. After appropriate level of anesthesia, the scope was passed. The [id number] ([id number]) endoscope was introduced through the anus and advanced to the cecum, which was identified by both the appendix and ileocecal valve. The quality of the prep was fair. The instrument was then slowly withdrawn as the colon was fully examined. Scope withdrawal time was 8 minutes. COLON FINDINGS: Two small smooth semi-pedunculated polyps with friable surfaces and mucous caps were found in the sigmoid colon and rectum. A polypectomy was performed with cold forceps. The resection was complete, the polyp tissue was completely retrieved and sent to histology. Small internal hemorrhoids were found. Retroflexed views revealed no abnormalities. The scope was then completely withdrawn from the patient and the procedure terminated. ADVERSE EVENTS: There were no complications. IMPRESSIONS: 1. Two small semi-pedunculated polyps were found in the sigmoid colon and rectum; polypectomy was performed with cold forceps 2. Small internal hemorrhoids RECOMMENDATIONS: 1. avoid NSAIDS for 2 weeks 2. await biopsy results 3. fiber rich diet 4. follow-up: office 2 week(s) 5. hemorrhoidal hygiene 6. increase dietary water 7. yearly hemoccult starting in 4 years RECALL: Return in 5 year(s) for Colonoscopy, pending biopsy results. Surinder Mckeon DR eSigned: Surinder Mckeon DR 11/11/2017 9:41 AM cc: CPT CODES: ICD9 CODES: PATIENT NAME: Alan Tapia MR#: [id number]
== END | disposition home or self-care (01) ==
LOC: OR 07:30
PROVIDERS: ATTEND Surgery
PROC: 0DBN8ZX Excision of Sigmoid Colon, Via Natural or Artificial Opening Endoscopic, Diagnostic (ICD-10-PCS; 2017-11-11)
PROC: 0DBP8ZX Excision of Rectum, Via Natural or Artificial Opening Endoscopic, Diagnostic (ICD-10-PCS; principal; 2017-11-11 09:15)
DX: Z12.11 Encounter for screening for malignant neoplasm of colon (principal); D12.5 Benign neoplasm of sigmoid colon; D12.8 Benign neoplasm of rectum; K64.8 Other hemorrhoids; I10 Essential (primary) hypertension
CPT/HCPCS: 88305; J2250

== ENCOUNTER 2018-09-15 23:12 | Inpatient (IN) | payer OTHER ==
--- OUTSIDE RECORDS SUMMARY | 2018-09-15 23:14 | XMS REPORT | Clinical Summary ---
:1965 Author Organization [facility] Address [address] [place] [address] Care Team Providers Name Role Phone Antonio Nesbitt Primary Care Provider Allergies Active Allergy Reactions Severity Noted Date Comments Nsaids (Non-Steroidal Nausea And Vomiting, Other 11/22/2016 Abdominal pain Anti-Inflammatory Drug) (See Comments) Medications Medication Sig Dispensed Refills Start Date End Date Status famotidine (PEPCID) Take 1 tablet 60 tablet 0 12/08/2016 Active 20 MG tablet (20 mg total) by mouth 2 (two) times daily. rivaroxaban (XARELTO) Take 1 tablet 30 tablet 0 12/09/2016 Active 10 mg Tab tablet (10 mg total) by mouth daily with dinner. tamsulosin (FLOMAX) Take 1 capsule 30 capsule 0 12/09/2016 Active 0.4 mg Cp24 24 hr (0.4 mg total) capsule by mouth daily. losartan (COZAAR) 100 Take 1 tablet 30 tablet 0 12/09/2016 12/09/2017 MG tablet (100 mg total) by mouth daily. atorvastatin Take 1 tablet 30 tablet 0 12/08/2016 12/08/2017 (LIPITOR) 10 MG (10 mg total) tablet by mouth nightly. senna-docusate Take 2 tablets 60 tablet 0 12/09/2016 12/09/2017 (SENOKOT S) 8.6-50 mg by mouth daily per tablet before lunch. Active Problems Problem Noted Date Odynophagia 12/03/2016 Essential hypertension 12/03/2016 Bilateral primary osteoarthritis of knee 11/24/2016 Social History Tobacco Use Types Packs/Day Years Used Date Never Smoker Smokeless Tobacco: Never Used Alcohol Use Drinks/Week oz/Week Comments Yes occasionally Sex Assigned at Date Recorded Not on file Job Start Date Occupation Industry Not on file Not on file Not on file Travel History Travel Start Travel End No recent travel history available. Last Filed Vital Signs Not on file Plan of Treatment Not on file Implants Implanted Type Area Manager Agency Device Shelf Model / Serial Identifier Expiration / Lot Date Cement Bone Smplx Hv [employer] 6195-1-001 - [id number] Cement/Maurizio Left: AZAEL:AZAEL 03/16/2018 6195-1-001 / Implanted: Qty: 2 on 11/24/2016 by Ricky Villalpando Jr., MD ler/ [employer] / ve [id number] Cement Bone Smplx Hv [employer] 6195-1-001 - [id number] Cement/Maurizio Right: AZAEL:AZAEL 03/16/2018 6195-1-001 / Implanted: Qty: 2 on 11/24/2016 by Ricky Villalpando Jr., MD ler/ [employer] / ve [id number] Femur Ceneted Ps Right Seize 9 Joints Right: Marina 07/14/2021 [id number] / Implanted: Qty: 1 on 11/24/2016 by Ricky Villalpando Jr., MD Knee / [id number] Tib Cemented Stem L 87-2494-632-01 - [id number] Joints Left: MARINA:MARINA 08/13/2026 [id number] / Implanted: Qty: 1 on 11/24/2016 by Ricky Villalpando Jr., MD Knee / [id number] Fem Sz 9 L 23-8268-411-01 - [id number] Joints Left: MARINA:MARINA 2026 [id number] / Implanted: Qty: 1 on 11/24/2016 by Ricky Villalpando Jr., MD Knee / [id number] Patella Cemented 35mm 79-3818-831-35 - [id number] Joints Left: MARINA: CTRPULSE 08/13/2024 [id number] / Implanted: Qty: 1 on 11/24/2016 by Ricky Villalpando Jr., MD Knee :ORTHO / [id number] Fixed Bearing Ps Left 10mm Height Joints Left: Marina 08/13/2021 [id number] / Implanted: Qty: 1 on 11/24/2016 by Ricky Villalpando Jr., MD Knee / [id number] Patella Cemented 35mm 39-8614-587-35 - [id number] Joints Right: MARINA: CTRPULSE 10/14/2024 [id number] / Implanted: Qty: 1 on 11/24/2016 by Ricky Villalpando Jr., MD Knee :ORTHO / [id number] Natrual Tibia Cementd 5 Degree Stemmed Size F Joints Right: 05/14/2026 [id number] / Implanted: Qty: 1 on 11/24/2016 by Ricky Villalpando Jr., MD Knee / [id number] Fem Sz 9 R 91-8736-311-02 - [id number] Joints Right: MARINA:MARINA 2026 [id number] / Implanted: Qty: 1 on 11/24/2016 by Ricky Villalpando Jr., MD Knee / [id number] Results Not on fileafter 09/14/2017 Insurance Payer Benefit Plan / Group Subscriber ID Type Phone Address KENNEDY JONES xxxxxxxxxxx Advance Directives For more information, please contact:[address] [phone] Code Status Date Activated Date Inactivated Comments Full Code 12/03/2016 12:00 PM 12/09/2016 2:04 PM This code status was determined by: Patient Full Code 11/24/2016 7:12 PM 12/03/2016 12:00 PM This code status was determined by: Patient Full Code 11/24/2016 7:34 AM 11/24/2016 7:12 PM This code status was determined by: Patient
--- OUTSIDE RECORDS SUMMARY | 2018-09-15 23:15 | XMS REPORT ---
[...] Status Dosage System Date Date Losartan ND 88048453055 100 MG Orally Active 1 tablet Potassium Once a day Lovastatin ND 58489273538 20 MG Orally Active 1 tablet Once a day with the evening meal Results No Known Results Summary Purpose eClinicalWorks Submission
--- OUTSIDE RECORDS SUMMARY | 2018-09-15 23:15 | XMS REPORT ---
:1965 [facility] Address [address] [place] [address] Care Team Providers Name Role Phone NINFA GOULD Unavailable Unavailable RICKY VELASQUEZ Unavailable Unavailable Problems This patient has no known problems. Allergies, Adverse Reactions, Alerts This patient has no known allergies or adverse reactions. Medications This patient has no known medications. Results Test Description Test Time Test Comments Text Results Atomic Results Result Comments URINE CULTURE 2016-12-05 13:17:00 Test Item Value Reference Range Comments CULTURE (BEAKER) (test hwoh=9235) No growth COMPREHENSIVE METABOLIC [id number] 08:09:00 Test Item Value Reference Range Comments TOTAL PROTEIN (BEAKER) 7.0 gm/dL 6.0-8.3 (test dvbc=286) ALBUMIN (BEAKER) (test 3.3 g/dL 3.5-5.0 vonv=0754) ALKALINE PHOSPHATASE 64 U/L 40-150 (BEAKER) (test mwvz=299) BILIRUBIN TOTAL (BEAKER) 0.8 mg/dL 0.2-1.2 (test puri=361) SODIUM (BEAKER) (test 136 meq/L 136-145 mjiy=629) POTASSIUM (BEAKER) (test 4.2 meq/L 3.5-5.1 hcbn=208) CHLORIDE (BEAKER) (test 100 meq/L 98-107 gpad=822) CO2 (BEAKER) (test 26 meq/L 22-29 kmmb=025) BLOOD UREA NITROGEN 14 mg/dL 7-21 (BEAKER) (test ehdj=507) CREATININE (BEAKER) (test 0.86 mg/dL 0.57-1.25 niys=395) GLUCOSE RANDOM (BEAKER) 94 mg/dL 70-105 (test vhqf=642) CALCIUM (BEAKER) (test 8.7 mg/dL 8.4-10.2 qnux=389) AST (SGOT) (BEAKER) (test 27 U/L 5-34 oorv=118) ALT (SGPT) (BEAKER) (test 38 U/L 6-55 ujvl=064) EGFR (BEAKER) (test 93 mL/min/1.73 sq m ESTIMATED GFR IS NOT jnzg=2555) ACCURATE CREATININE CLEARANCE IN PREDICTING GLOMERULAR FILTRATION RATE. ESTIMATED GFR IS NOT APPLICABLE FOR DIALYSIS PATIENTS. CBC W/PLT COUNT & AUTO [id number] 07:53:00 Test Item Value Reference Range Comments WHITE BLOOD CELL COUNT (BEAKER) (test ezsw=331) 10.3 K/ L 3.5-10.5 RED BLOOD CELL COUNT (BEAKER) (test swsb=555) 4.00 M/ L 4.63-6.08 HEMOGLOBIN (BEAKER) (test lmqv=665) 12.8 GM/DL 13.7-17.5 HEMATOCRIT (BEAKER) (test vbob=324) 39.0 % 40.1-51.0 MEAN CORPUSCULAR VOLUME (BEAKER) (test hndc=205) 97.5 fL 79.0-92.2 MEAN CORPUSCULAR HEMOGLOBIN (BEAKER) (test 32.0 pg 25.7-32.2 lygi=823) MEAN CORPUSCULAR HEMOGLOBIN CONC (BEAKER) (test 32.8 GM/DL 32.3-36.5 jjsv=273) RED CELL DISTRIBUTION WIDTH (BEAKER) (test 12.9 % 11.6-14.4 nlhr=257) PLATELET COUNT (BEAKER) (test niup=559) 519 K/CU MM 150-450 MEAN PLATELET VOLUME (BEAKER) (test ihny=440) 8.7 fL 9.4-12.4 NUCLEATED RED BLOOD CELLS (BEAKER) (test 0 /100 WBC 0-0 ynoa=688) NEUTROPHILS RELATIVE PERCENT (BEAKER) (test 69 % ugve=016) LYMPHOCYTES RELATIVE PERCENT (BEAKER) (test 14 % yaqg=810) MONOCYTES RELATIVE PERCENT (BEAKER) (test 11 % soye=808) EOSINOPHILS RELATIVE PERCENT (BEAKER) (test 3 % bfmq=222) BASOPHILS RELATIVE PERCENT (BEAKER) (test 1 % canl=594) NEUTROPHILS ABSOLUTE COUNT (BEAKER) (test 7.07 K/ L 1.78-5.38 dfrb=569) LYMPHOCYTES ABSOLUTE COUNT (BEAKER) (test 1.41 K/ L 1.32-3.57 nlzk=907) MONOCYTES ABSOLUTE COUNT (BEAKER) (test 1.12 K/ L 0.30-0.82 bynt=634) EOSINOPHILS ABSOLUTE COUNT (BEAKER) (test 0.27 K/ L 0.04-0.54 pbsd=929) BASOPHILS ABSOLUTE COUNT (BEAKER) (test 0.07 K/ L 0.01-0.08 qwud=199) IMMATURE GRANULOCYTES-RELATIVE PERCENT (BEAKER) 4 % 0-1 (test khuu=9145) PROTHROMBIN [id number] 06:49:00 Test Item Value Reference Range Comments PROTIME (BEAKER) (test anpk=111) 15.9 seconds 11.7-14.7 INR (BEAKER) (test jjcw=557) 1.3 <=5.9 RECOMMENDED COUMADIN/WARFARIN INR THERAPY RANGESSTANDARD DOSE: 2.0 - 3.0 Includes: PROPHYLAXIS forvenous thrombosis, systemic embolization; TREATMENT for venous thrombosis and/or pulmonary embolus.HIGH RISK: Target INR is 2.5-3.5 for patients with mechanical heart valves.RAPID STREP A [id number] 17:49: 00 Test Item Value Reference Range Comments STREP A ANTIGEN (BEAKER) (test zoig=477) Negative Negative URINALYSIS W/ [id number] 17:39:00 Test Item Value Reference Range Comments COLOR (BEAKER) (test ktmm=506) Light Yellow CLARITY (BEAKER) (test avop=516) Clear SPECIFIC GRAVITY UA (BEAKER) (test 1.004 1.001-1.035 djvm=302) PH UA (BEAKER) (test vimd=601) 6.0 5.0-8.0 PROTEIN UA (BEAKER) (test ulye=128) Negative Negative GLUCOSE UA (BEAKER) (test mmkj=183) Negative Negative KETONES UA (BEAKER) (test infb=143) Negative Negative BILIRUBIN UA (BEAKER) (test mmlh=283) Negative Negative BLOOD UA (BEAKER) (test qxwr=161) Negative Negative NITRITE UA (BEAKER) (test bdmq=600) Negative Negative LEUKOCYTE ESTERASE UA (BEAKER) (test Negative Negative orgn=190) UROBILINOGEN UA (BEAKER) (test ozbv=335) 2.0 mg/dL 0.2-1.0 RBC UA (BEAKER) (test ehbz=007) 0 /HPF WBC UA (BEAKER) (test ckto=934) < /HPF SQUAMOUS EPITHELIAL (BEAKER) (test < /HPF miuh=904) SOURCE(BEAKER) (test icbp=5242) Urine, Clean Catch RAD, ABDOMEN/KUB, 1 VIEW [id number] 10:41:00Reason for exam:-> constipationFINAL REPORT Two abdomen images Discussion: Nonspecific bowel gas pattern with air-filled mildly prominent small bowel loops. No particularly concerning degree of retained feces.No evidence of free intraperitoneal air. Signed: Denzel Rebolledo Verified Date/Time: 2016 10:41:38 Reading Location: [facility] Radiology Reading Room TISSUE [id number] 09:25:00Surgical Pathology Report Case: [id number] Authorizing Provider: Ricky Velasquez Collected: 11/24/2016 1154 MD Devan OrderingLocation: [facility] PER[facility] Received: 2016 1307 SERVICES Pathologist: Jose G Shepard MD Specimens: A) -Condyle,Left Knee B) - Condyle, Right Knee A. BONE AND SOFT TISSUE, LEFT KNEE, ARTHROPLASTY: - OSTEOARTHRITIS AND CHRONIC SYNOVITIS B. BONE AND SOFT TISSUE, RIGHT KNEE, ARTHROPLASTY: - OSTEOARTHRITIS AND CHRONIC SYNOVITIS Signing Pathologist Direct PhoneLine : [phone] signed by Jose G Shepard MD on 12/02/2016 at 9:25 [id number] left kneeA. Left knee condyle; B. Right [...] reveals subsynovial edema with chronic inflammation.HEMOGLOBIN AND [id number] 09:32:00 Test Item Value Reference Range Comments HEMOGLOBIN (BEAKER) (test muii=081) 11.9 GM/DL 13.7-17.5 HEMATOCRIT (BEAKER) (test fwuo=106) 36.1 % 40.1-51.0 BASIC METABOLIC [id number] 08:09:00 Test Item Value Reference Range Comments SODIUM (BEAKER) (test 135 meq/L 136-145 hksi=736) POTASSIUM (BEAKER) (test 4.1 meq/L 3.5-5.1 unij=929) CHLORIDE (BEAKER) (test 100 meq/L 98-107 tywd=026) CO2 (BEAKER) (test 27 meq/L 22-29 bxau=109) BLOOD UREA NITROGEN 10 mg/dL 7-21 (BEAKER) (test uhcy=769) CREATININE (BEAKER) (test 1.06 mg/dL 0.57-1.25 pqym=029) GLUCOSE RANDOM (BEAKER) 131 mg/dL 70-105 (test leoo=974) CALCIUM (BEAKER) (test 8.7 mg/dL 8.4-10.2 offd=730) EGFR (BEAKER) (test 73 mL/min/1.73 sq m ESTIMATED GFR IS NOT ifra=9908) ACCURATE CREATININE CLEARANCE IN PREDICTING GLOMERULAR FILTRATION RATE. ESTIMATED GFR IS NOT APPLICABLE FOR DIALYSIS PATIENTS. HEMOGLOBIN AND [id number] 07:45:00 Test Item Value Reference Range Comments HEMOGLOBIN (BEAKER) (test iwkp=986) 13.8 GM/DL 13.7-17.5 HEMATOCRIT (BEAKER) (test ueim=321) 40.7 % 40.1-51.0 BASIC METABOLIC [id number] 06:44:00 Test Item Value Reference Range Comments SODIUM (BEAKER) (test 136 meq/L 136-145 bppy=048) POTASSIUM (BEAKER) (test 4.0 meq/L 3.5-5.1 yley=033) CHLORIDE (BEAKER) (test 105 meq/L 98-107 ehih=041) CO2 (BEAKER) (test 25 meq/L 22-29 askp=910) BLOOD UREA NITROGEN 9 mg/dL 7-21 (BEAKER) (test yhgy=372) CREATININE (BEAKER) (test 0.83 mg/dL 0.57-1.25 ryje=908) GLUCOSE RANDOM (BEAKER) 117 mg/dL 70-105 (test iirb=318) CALCIUM (BEAKER) (test 8.2 mg/dL 8.4-10.2 qhqt=251) EGFR (BEAKER) (test 97 mL/min/1.73 sq m ESTIMATED GFR IS NOT ykni=1215) ACCURATE CREATININE CLEARANCE IN PREDICTING GLOMERULAR FILTRATION RATE. ESTIMATED GFR IS NOT APPLICABLE FOR DIALYSIS PATIENTS. HEMOGLOBIN AND [id number] 06:19:00 Test Item Value Reference Range Comments HEMOGLOBIN (BEAKER) (test hvfj=744) 14.7 GM/DL 13.7-17.5 HEMATOCRIT (BEAKER) (test nsqe=871) 43.7 % 40.1-51.0 RAD, KNEE, 1 OR 2 VIEWS, [id number] 16:42:00Of operative side while in recovery room.Reason for exam:->eval implantsFINAL REPORT COMPARISON: No comparison left knee imaging HISTORY: Left knee pain, status post knee arthroplasty FINDINGS: AP and lateral radiographs of the left knee demonstratepostoperative changes consistent with total arthroplasty. Arthroplasty alignment appears anatomic. No periprosthetic fracture is identified. Signed: Justino Rivera MDR[facility] Verified Date/Time: 11/24/2016 16:42: 12 Reading Location: [facility] Radiology Reading Room RAD, KNEE, 1 OR 2 VIEWS, [id number] 16:33:00Of operative side while in recovery room.Reason for exam:->eval implantsFINAL REPORT EXAM: AP and lateral views of the right knee HISTORY PROVIDED: Evaluate implants COMPARISON: None available IMPRESSION:The patient is status post right total knee arthroplasty with hardware in place in gross alignment. No fracture or dislocation. There is postoperative soft tissue swelling and air. Signed: Justino Alcaraz MD[facility] Verified Date/Time: 11/24/201616:33:57 Reading Location: [facility] Reading Room
--- NOTE | 2018-09-15 23:56 | ER ---
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 pain rated at 8/10, BP at 191/115, pain is all the way across chest but more on the left side. denies sweating, nausea vomitting. Transition of care: patient was not received from another setting of care. Onset of symptoms was September 15, 2018 at 22:30. Risk Assessment: Do you want to hurt yourself or someone else? Patient reports no desire to harm self or others. Initial Sepsis Screen: Does the patient meet any 2 criteria? No. Patient's initial sepsis screen is negative. Does the patient have a suspected source of infection? No. Patient's initial sepsis screen is negative. Care prior to arrival: None. 23:17 Method Of Arrival: Ambulatory dm5 23:17 Acuity: EVELYN 2 dm5 Triage Assessment: 23:23 General: Appears in no apparent distress. uncomfortable, Behavior is cooperative, dm5 anxious. Pain: Complains of pain in chest Pain does not radiate. Pain currently is 8 out of 10 on a pain scale. Pain began 1 hour ago. Is continuous. Neuro: No deficits noted. Level of Consciousness is awake, alert, obeys commands, Oriented to person, place, time, situation. Cardiovascular: Reports chest pain, Denies diaphoresis, nausea, shortness of breath, vomiting. Respiratory: Airway is patent Respiratory effort is even, unlabored, Respiratory pattern is regular, symmetrical. Derm: Skin is dry. Historical: - Allergies: 23:20 Aspirin; dm5 - Home Meds: 23:23 losartan oral oral [Active]; dm5 - PMHx: 23:23 Hypertension; High Cholesterol; dm5 - Family history:: not pertinent. Screenin:37 Abuse screen: Denies threats or abuse. Nutritional screening: No deficits noted. jb4 Tuberculosis screening: No symptoms or risk factors identified. Fall Risk None identified. Assessment: 23:36 General: Appears in no apparent distress. uncomfortable, Behavior is calm, cooperative, jb4 appropriate for age. Pain: Complains of pain in anterior aspect of left upper chest Pain radiates to anterior aspect of right upper chest Pain currently is 8 out of 10 on a pain scale. Quality of pain is described as pressure, Pain began 1 hour ago. Is continuous. Neuro: Level of Consciousness is awake, alert, obeys commands, Oriented to person, place, time, situation. Cardiovascular: Heart tones S1 S2 present Patient's skin is warm and dry. Rhythm is sinus rhythm. Respiratory: Airway is patent Respiratory effort is even, unlabored, Respiratory pattern is regular, symmetrical, Breath sounds are clear bilaterally. GI: No deficits noted. No signs and/or symptoms were reported involving the gastrointestinal system. : No deficits noted. No signs and/or symptoms were reported regarding the genitourinary system. EENT: No deficits noted. No signs and/or symptoms were reported regarding the EENT system. Derm: Skin is intact, Skin is pink, warm \T\ dry. Musculoskeletal: Circulation, motion, and sensation intact. Range of motion: intact in all extremities. 09/16 00:45 Reassessment: Patient appears in no apparent distress at this time. Patient and/or jb4 family updated on plan of care and expected duration. Pain level reassessed. Patient is alert, oriented x 3, equal unlabored respirations, skin warm/dry/pink. Vital Signs: 09/15 23:23 BP 187 / 96; Pulse 70; Resp 18; Temp 97.6; Pulse Ox 96% on R/A; Weight 111.1 kg (M); dm5 Height 5 ft. 7 in. (170.18 cm); Pain 8/10; 09/16 01:00 BP 155 / 102; Pulse 65; Resp 20; Pulse Ox 98% on R/A; jb4 09/15 23:23 Body Mass Index 38.36 (111.10 kg, 170.18 cm) 5 ED Course: 09/15 23:12 Patient arrived in ED. ds1 23:19 Triage completed. dm5 23:23 Arm band placed on right wrist. Patient placed in an exam room. dm5 23:35 Hossein Leone RN is Primary Nurse. jb4 23:37 Patient has correct armband on for positive identification. Bed in low position. Call jb4 light in reach. Side rails up X 1. medication nurse on. Pulse ox on. NIBP on. 23:37 Patient maintains SpO2 saturation greater than 95% on room air. jb4 23:42 Ramin Bartlett MD is Attending Physician. [facility] 23:55 Shamir Kaufman MD is Hospitalizing Provider. [facility] 09/16 00:00 Inserted saline lock: 20 gauge in right antecubital area, using aseptic technique. mw2 Blood collected. 00:33 X-ray completed. Portable x-ray completed in exam room. Patient tolerated procedure mh1 well. 01:00 No provider procedures requiring assistance completed. Patient admitted, IV remains in jb4 place. Administered Medications: 00:36 Drug: PlaVIX 300 mg Route: PO; jb4 00:36 Drug: Lopressor (metoprolol TARTRATE) 50 mg Route: PO; jb4 00:37 Drug: Aspirin 81 mg Route: PO; jb4 00:37 Drug: ProTONIX 40 mg Route: IVP; Site: right antecubital; jb4 00:38 Drug: Zofran 4 mg Route: IVP; Site: right antecubital; jb4 00:40 Drug: morphine 4 mg Route: IVP; Site: right antecubital; jb4 00:46 Drug: Lopressor 5 mg Route: IVP; Site: right antecubital; jb4 00:47 Drug: Lovenox 1 mg/kg Route: Sub-Q; Site: right lower abdomen; jb4 Outcome: 09/15 23:55 Decision to Hospitalize by Provider. [facility] 09/16 01:00 Admitted to Tele accompanied by tech, via wheelchair, room 415, with chart. jb4 Condition: stable Discharge instructions given to patient, Instructed on the need for admit, Demonstrated understanding of instructions. 01:17 Patient left the ED. jb4 Signatures: Livia Whaley, RN RN dm5 Ramin Bartlett MD MD cha Harvey, Martha 1 Vera Monk ds1 Hossein Leone RN RN jb4 Martine Del Cid mw2 Corrections: (The following items were deleted from the chart) 04:35 00:45 BP 155 / 102; Pulse 65bpm; Resp 20bpm; Pulse Ox 98% RA; jb4 jb4 04:37 01:00 Admitted to Tele accompanied by tech, via wheelchair, with chart, jb4 jb4 04:37 01:00 Discharge instructions given to patient, Instructed on the need for admit, jb4 Demonstrated understanding of instructions, jb4
[2018-09-15] MEDS ORDERED: ALPRAZOLAM 0.25 MG TABLET PO PRN (23:57)
[2018-09-15] MEDS ORDERED: ACETAMINOPHEN 500 MG TAB PO PRN (23:57)
[2018-09-15] MEDS ORDERED: MORPHINE 4 MG/ML SYR IV PRN (23:57)
--- NOTE | 2018-09-15 23:57 | EDPHYS ---
Physician Documentation [facility] Name: Alan Tapia Age: 53 yrs Sex: Male : 1965 Arrival Date: 09/15/2018 Time: 23:12 Bed 15 Private MD: ED Physician Ramin Bartlett HPI: 09/15 23:53 This 53 yrs old Male presents to ER via Ambulatory with complaints of Chest lilian Pain. 23:53 The patient or guardian reports chest pain that is located primarily in the substernal lilian area, anterior chest wall, left. Onset: 1 hour(s) ago. The pain does not radiate. Associated signs and symptoms: The patient has no apparent associated signs or symptoms. The chest pain is described as a heaviness, a pressure. Duration: The patient or guardian reports a single episode, that is still ongoing. Modifying factors: The symptoms are alleviated by nothing. the symptoms are aggravated by nothing. Severity of pain: At its worst the pain was mild in the emergency department the pain is unchanged. The patient has not experienced similar symptoms in the past. Historical: - Allergies: 23:20 Aspirin; dm5 - Home Meds: 23:23 losartan oral oral [Active]; dm5 - PMHx: 23:23 Hypertension; High Cholesterol; dm5 - Family history:: not pertinent. ROS: 23:53 Constitutional: Negative for fever, chills, and weight loss, Eyes: Negative for injury, lilian pain, redness, and discharge, ENT: Negative for injury, pain, and discharge, Neck: Negative for injury, pain, and swelling, Respiratory: Negative for shortness of breath, cough, wheezing, and pleuritic chest pain, Abdomen/GI: Negative for abdominal pain, nausea, vomiting, diarrhea, and constipation, Back: Negative for injury and pain, : Negative for injury, bleeding, discharge, and swelling, MS/Extremity: Negative for injury and deformity, Skin: Negative for injury, rash, and discoloration, Neuro: Negative for headache, weakness, numbness, tingling, and seizure, Psych: Negative for depression, anxiety, suicide ideation, homicidal ideation, and hallucinations, Allergy/Immunology: Negative for hives, rash, and allergies, Endocrine: Negative for neck swelling, polydipsia, polyuria, polyphagia, and marked weight changes, Hematologic/Lymphatic: Negative for swollen nodes, abnormal bleeding, and unusual bruising. 23:53 Cardiovascular: Positive for chest pain, with cough. Exam: 23:54 Constitutional: This is a well developed, well nourished patient who is awake, alert, lilian and in no acute distress. Head/Face: Normocephalic, atraumatic. Eyes: Pupils equal round and reactive to light, extra-ocular motions intact. Lids and lashes normal. Conjunctiva and sclera are non-icteric and not injected. Cornea within normal limits. Periorbital areas with no swelling, redness, or edema. ENT: Nares patent. No nasal discharge, no septal abnormalities noted. Tympanic membranes are normal and external auditory canals are clear. Oropharynx with no redness, swelling, or masses, exudates, or evidence of obstruction, uvula midline. Mucous membranes moist. Neck: Trachea midline, no thyromegaly or masses palpated, and no cervical lymphadenopathy. Supple, full range of motion without nuchal rigidity, or vertebral point tenderness. No Meningismus. Chest/axilla: Normal chest wall appearance and motion. Nontender with no deformity. No lesions are appreciated. Cardiovascular: Regular rate and rhythm with a normal S1 and S2. No gallops, murmurs, or rubs. Normal PMI, no JVD. No pulse deficits. Respiratory: Lungs have equal breath sounds bilaterally, clear to auscultation and percussion. No rales, rhonchi or wheezes noted. No increased work of breathing, no retractions or nasal flaring. Abdomen/GI: Soft, non-tender, with normal bowel sounds. No distension or tympany. No guarding or rebound. No evidence of tenderness throughout. Back: No spinal tenderness. No costovertebral tenderness. Full range of motion. Male : Normal genitalia with no discharge or lesions. Skin: Warm, dry with normal turgor. Normal color with no rashes, no lesions, and no evidence of cellulitis. MS/ Extremity: Pulses equal, no cyanosis. Neurovascular intact. Full, normal range of motion. Neuro: Awake and alert, GCS 15, oriented to person, place, time, and situation. Cranial nerves II-XII grossly intact. Motor strength 5/5 in all extremities. Sensory grossly intact. Cerebellar exam normal. Normal gait. Psych: Awake, alert, with orientation to person, place and time. Behavior, mood, and affect are within normal limits. 23:54 Musculoskeletal/extremity: DVT Exam: No signs of deep vein thrombosis. no pain, no swelling, no tenderness, negative Homans' sign noted on exam, no appreciated bluish discoloration, no erythema, no increased warmth. Vital Signs: 23:23 BP 187 / 96; Pulse 70; Resp 18; Temp 97.6; Pulse Ox 96% on R/A; Weight 111.1 kg (M); dm5 Height 5 ft. 7 in. (170.18 cm); Pain 8/10; 09/16 01:00 BP 155 / 102; Pulse 65; Resp 20; Pulse Ox 98% on R/A; jb4 09/15 23:23 Body Mass Index 38.36 (111.10 kg, 170.18 cm) dm5 MDM: 09/15 23:42 Patient medically screened. [facility] 23:54 Data reviewed: vital signs, nurses notes, lab test result(s), EKG, radiologic studies, lilian plain films. 09/15 23:39 Order name: Basic Metabolic Panel; Complete Time: 01:03 jb4 09/15 23:39 Order name: CBC with Diff; Complete Time: 01:03 jb4 09/15 23:39 Order name: LFT's; Complete Time: 01:03 jb4 09/15 23:39 Order name: Magnesium; Complete Time: 01:03 jb4 09/15 23:39 Order name: NT PRO-BNP; Complete Time: 01:03 jb4 09/15 23:39 Order name: PT-INR [facility] 09/15 23:39 Order name: Troponin (emerg Dept Use Only); Complete Time: 01:03 jb4 09/16 00:04 Order name: Basic Metabolic Panel EDMS 09/16 00:04 Order name: Basic Metabolic Panel EDMS 09/16 00:05 Order name: CBC with Automated Diff EDMS 09/16 00:05 Order name: CBC with Automated Diff EDMS 09/16 00:05 Order name: Lipid Profile EDMS 09/16 00:05 Order name: Lipid Profile EDMS 09/16 00:05 Order name: Troponin I EDMS 09/15 23:39 Order name: XRAY Chest (1 view) jb4 09/15 23:39 Order name: EKG; Complete Time: 23:40 jb4 09/16 00:04 Order name: CONS Physician Consult EDVT 09/16 00:04 Order name: Heart Healthy EDVT 09/16 00:04 Order name: Echo with Doppler EDVT 09/16 00:04 Order name: EKG Electrocardiogram EDVT 09/16 00:05 Order name: Troponin I EDVT 09/16 00:05 Order name: Troponin I EDVT 09/15 23:39 Order name: Cardiac monitoring; Complete Time: 23:49 jb4 09/15 23:39 Order name: EKG - Nurse/Tech; Complete Time: 23:49 jb4 09/15 23:39 Order name: IV Saline Lock; Complete Time: 04:38 jb4 09/15 23:39 Order name: Labs collected and sent; Complete Time: 04:38 jb4 09/15 23:39 Order name: O2 Per Protocol; Complete Time: 23:49 jb4 09/15 23:39 Order name: O2 Sat Monitoring; Complete Time: 23:49 jb4 09/16 00:04 Order name: EKG Electrocardiogram EDVT Administered Medications: 09/16 00:36 Drug: PlaVIX 300 mg Route: PO; jb4 00:36 Drug: Lopressor (metoprolol TARTRATE) 50 mg Route: PO; jb4 00:37 Drug: Aspirin 81 mg Route: PO; jb4 00:37 Drug: ProTONIX 40 mg Route: IVP; Site: right antecubital; jb4 00:38 Drug: Zofran 4 mg Route: IVP; Site: right antecubital; jb4 00:40 Drug: morphine 4 mg Route: IVP; Site: right antecubital; jb4 00:46 Drug: Lopressor 5 mg Route: IVP; Site: right antecubital; jb4 00:47 Drug: Lovenox 1 mg/kg Route: Sub-Q; Site: right lower abdomen; jb4 Disposition: 09/15/18 23:55 Hospitalization ordered by Shamir Kaufman for Inpatient Admission. Preliminary diagnosis are Other chest pain, Essential (primary) hypertension. - Bed requested for Telemetry/MedSurg (Inpatient). - Status is Inpatient Admission. jb4 - Condition is Fair. - Problem is new. - Symptoms have improved. UTI on Admission? No Signatures: Dispatcher [employer] [facility] Livia Whaley, RN RN dm5 Ramin Bartlett MD MD cha Chretien, Felicia, RN RN fc Hossein Leone, VITO RN jb4 Corrections: (The following items were deleted from the chart) 09/15 23:57 23:55 Hospitalization Ordered by Shamir Kaufman MD for Observation. Preliminary [facility] diagnosis is Other chest pain; Essential (primary) hypertension. Bed requested for Telemetry/MedSurg (Inpatient). Status is Observation. Condition is Fair. Problem is new. Symptoms have improved. UTI on Admission? No. [facility] 09/16 00:03 09/15 23:57 09/15/2018 23:55 Hospitalization Ordered by Shamir Kaufman MD for Inpatient fc Admission. Preliminary diagnosis is Other chest pain; Essential (primary) hypertension. Bed requested for Telemetry/MedSurg (Inpatient). Status is Inpatient Admission. Condition is Fair. Problem is new. Symptoms have improved. UTI on Admission? No. [facility] 09/16 01:17 00:03 09/15/2018 23:55 Hospitalization Ordered by Shamir Kaufman MD for Inpatient jb4 Admission. Preliminary diagnosis is Other chest pain; Essential (primary) hypertension. Bed requested for Telemetry/MedSurg (Inpatient). Status is Inpatient Admission. Condition is Fair. Problem is new. Symptoms have improved. UTI on Admission? No.
[2018-09-16] MEDS ORDERED: CLOPIDOGREL 75 MG TABLET ONE (00:04)
[2018-09-16] MEDS ORDERED: PANTOPRAZOLE 40 MG INJ ONE (00:04)
[2018-09-16] MEDS ORDERED: ONDANSETRON 4 MG/2 ML VIAL ONE (00:04)
[2018-09-16] MEDS ORDERED: METOPROLOL TARTRATE 5 MG/5 ML INJ IV ONE (00:05)
[2018-09-16] MEDS ORDERED: ENOXAPARIN 100 MG/ML SYR SQ ONE (00:05)
[2018-09-16 00:10] LABS: Absolute Lymphocytes (CBC) 1.2 K/uL (0.7-4.9); Basophils % 1.1 % (0-1.3); Hematocrit 46.9 % (39.6-49.0); Lymphocytes % 14.4 % (15.3-44.8); MPV 8.3 fL (7.6-11.3); RBC Red Blood Cell Count 4.84 M/uL (4.33-5.43)
[2018-09-16] MEDS ORDERED: ENOXAPARIN 80 MG/0.8 ML SQ ONE (00:11)
[2018-09-16] MEDS ORDERED: ASPIRIN 81 MG CHEWABLE TABLET ONE (00:11)
[2018-09-16] MEDS ORDERED: ENOXAPARIN 30 MG/0.3 ML SQ ONE (00:12)
[2018-09-16 00:15] LABS: Protime INR 0.96
[2018-09-16 00:30] LABS: ALT/SGPT 27 U/L (12-78); AST/SGOT 16 U/L (15-37); Albumin 3.7 g/dL (3.4-5.0); Alkaline Phosphatase 72 U/L (45-117); BUN Blood Urea Nitrogen 18 mg/dL (7-18); Bicarbonate 28 mmol/L (21-32); Bilirubin Direct < 0.1 mg/dL (0-0.2); Bilirubin Total 0.2 mg/dL (0.2-1.0); Glucose Level 125 mg/dL (74-106); Magnesium 2.2 mg/dL (1.8-2.4); NT PRO-BNP 24 pg/mL (<125); Potassium 3.8 mmol/L (3.5-5.1); Protein, Total 7.3 g/dL (6.4-8.2); Sodium Level 144 mmol/L (136-145); Troponin (Emerg Dept Use Only) 0.03 ng/mL (0.0-0.045)
--- NOTE | 2018-09-16 06:38 | P.HP ---
Certification for Inpatient Patient admitted to: Observation With expected LOS: <2 Midnights Patient will require the following post-hospital care: None Practitioner: I am a practitioner with admitting privileges, knowledge of patient current condition, hospital course, and medical plan of care. Services: Services provided to patient in accordance with Admission requirements found in Title 42 Section 412.3 of the Code of Federal Regulations Patient History Date of Service: 09/16/18 Reason for admission: Chest pain rule out acute coronary syndrome History of Present Illness: Patient is a 53-year-old gentleman who started having some chest discomfort. Pain was mainly in the sternal region. He was short of breath with the pain. The pain has not really let up since he has been in the emergency room. He was given morphine but he states the pain is down to a 5/10. He denies any diaphoresis or nausea or vomiting. Patient has multiple risk factors for heart disease. His initial troponins and EKG have been negative. At this time, he will be admitted to the hospital for observation. Will get Cardiology consultation. If his workup is negative he may get to go home for outpatient stress test. Discuss the case with Cardiology prior to discharge planning. Allergies No Known Allergies Allergy (Verified 09/16/18 02:52) Home Medications: Losartan Potassium 100 mg PO CONT 11/11/17 Lovastatin 20 mg PO DAILY 11/11/17 - Past Medical/Surgical History Has patient received pneumonia vaccine in the past: No Diabetic: No -: HYPERTENSION -: HYPERLIPIDEMIA -: KNEE SURGERY (2016) - Family History Father Medical History: Hypertension Mother Notes: NO PMHX - Social History Smoking Status: Never smoker Alcohol use: Yes CD- Drugs: No Caffeine use: Yes Place of Residence: Home Physical Examination - Vital Signs Temperature: 97.7 F Blood Pressure: 137/84 Pulse: 66 Respirations: 16 Pulse Ox (%): 94 - Physical Exam General: Alert, In no apparent distress, Oriented x3 HEENT: Atraumatic, PERRLA, Mucous membr. moist/pink, EOMI, Sclerae nonicteric Neck: Supple, 2+ carotid pulse no bruit, No LAD, Without JVD or thyroid abnormality Respiratory: Clear to auscultation bilaterally, Normal air movement Cardiovascular: Regular rate/rhythm, Normal S1 S2 Gastrointestinal: Normal bowel sounds, Soft and benign, Non-distended, No tenderness Musculoskeletal: No clubbing, No swelling, No tenderness Integumentary: No rashes Neurological: Normal gait, Normal speech, Normal strength at 5/5 x4 extr, Normal tone, Sensation intact, Cranial nerves 3-12 intact, Normal affect Lymphatics: No axilla or inguinal lymphadenopathy - Studies Laboratory Data (last 24 hrs) 09/15/18 23:59: PT 11.3, INR 0.96 09/15/18 23:59: WBC 8.2, Hgb 16.4, Hct 46.9, Plt Count 239 09/15/18 23:59: Sodium 144, Potassium 3.8, BUN 18, Creatinine 1.17, Glucose 125 H, Magnesium 2.2, Total Bilirubin 0.2, AST 16, ALT 27, Alkaline Phosphatase 72 Assessment & Plan - Problems (Diagnosis) (1) Chest pain, rule out acute myocardial infarction Current Visit: Yes Status: Acute (2) Hypertension Current Visit: Yes Status: Acute (3) Hyperlipidemia Current Visit: Yes Status: Acute (4) Obesity (BMI 30-39.9) Current Visit: Yes Status: Acute - Plan 1. Serial troponins and EKG 2. Cardiology consultation 3. Echocardiogram and stress test oupt 4. Anti-platelet therapy, anti coagulation, beta-ree, statin, and O2 as needed 5. IV morphine for pain 6. Nitro p.r.n. Discharge Plan: Home Plan to discharge in: Greater than 2 days - Advance Directives Does patient have a Living Will: No Does patient have a Durable POA for Healthcare: No - Code Status/Comfort Care Code Status Assessed: Yes Code Status: Full Code Critical Care: No Time Spent Managing PTS Care (In Minutes): 45
--- NOTE | 2018-09-16 06:46 | EKG ---
Test Date: 2018-09-15 Test Time: 23:32:45 Re Dye Hand: EDWIN MEASUREMENT RESULTS: Intervals: Rate: 74 PA: 170 QRSD: 84 QT: 400 QTc: 444 [place]: P: 64 PA: 170 QRS: 1 T: 37 INTERPRETIVE STATEMENTS: Normal sinus rhythm Nonspecific ST abnormality Abnormal ECG No previous ECG available for comparison Electronically Signed On 09-16-18 06:45:56 CDT by Jayden Bey
[2018-09-16 07:52] LABS: Absolute Lymphocytes (CBC) 1.2 K/uL (0.7-4.9); Basophils % 2.8 % (0-1.3); Hematocrit 48.4 % (39.6-49.0); Lymphocytes % 15.9 % (15.3-44.8)
[2018-09-16 07:58] LABS: Potassium 4.3 mmol/L (3.5-5.1)
[2018-09-16] MEDS: ASPIRIN EC 81 MG TAB PO SCH (08:07)
[2018-09-16] MEDS: ENOXAPARIN 40 MG/0.4 ML SQ SCH (08:08)
[2018-09-16] MEDS: METOPROLOL TAR 50 MG TAB PO SCH ×2 (08:08→20:49)
--- NOTE | 2018-09-16 10:26 | CON ---
Date of Consultation: 09/16/[address] Kaufman's service on 09/16/2018. I saw the patient on 09/16/2018. Reason For Consultation: Chest pain. History Of Present Illness: Mr. Tapia is a 53-year-old Latin-Bangl[place] male with history of hypertens ion, dyslipidemia, who came in with an hour worth of substernal chest pain that was not radiating, no t exertional, worse when he took a deep breath, lasted few hours with some nausea. No diaphoresis, P ND, orthopnea, pedal edema, palpitations or syncope. He has already ruled out for an KS by the time I saw him. He was asymptomatic now. Allergies: NONE. Review of Systems: Negative. Social History: Negative. Family History: Noncontributory. Medications: At home, include losartan and lovastatin. Physical Examination: Vital Signs: He weighed 245 pounds. Vital signs were stable, afebrile, sinus rhythm. HEENT: Negative. Neck: Supple without any bruit, lymphadenopathy, JVD, or thyromegaly. Chest: Clear to auscultation and percussion. Cardiac: Revealed a regular rhythm and rate. No murmurs, gallops or rubs. Abdomen: Benign. Extremities: Revealed no clubbing, cyanosis, or edema. Diagnostic Data: Normal except for glucose of . Chest x-ray and EKG were negative. Tropo tino was negative. Impression And Plan: Atypical chest pain, most likely gastroesophageal reflux disease. He has, larsen elías, history of hypertension and dyslipidemia, and I think would be reasonable to have him do an outp atient stress test and an echocardiogram as an outpatient. As far as I am concerned, he can go home whenever it is okay with Dr. Kaufman on a proton pump inhibitor for now. NB/MODL Voice ID: [id number] Report ID: [id number]
[2018-09-16 10:52] LABS: Urine Appearance CLEAR; Urine Bilirubin NEGATIVE (NEG); Urine Blood NEGATIVE (NEG); Urine Color YELLOW; Urine Glucose NEGATIVE (NEG); Urine Protein NEGATIVE (NEG); Urine Urobilinogen 0.2 mg/dL (0.2-1.0); Urine pH 5.5 (5.0-7.0)
[2018-09-16 10:53] LABS: Urine Microscopic Reflex NO UMIC
--- NOTE | 2018-09-16 11:03 | RAD REPORT ---
EXAM DESCRIPTION: Bonny Single View09/16/2018 12:36 am CLINICAL HISTORY: Chest pain COMPARISON: 2017 FINDINGS: The lungs appear clear of acute infiltrate. The heart is normal size IMPRESSION: No acute abnormalities displayed
[2018-09-17] MEDS: METOPROLOL TAR 50 MG TAB PO SCH ×2 (08:11→21:22)
[2018-09-17] MEDS: ENOXAPARIN 40 MG/0.4 ML SQ SCH (08:11)
[2018-09-17] MEDS: ASPIRIN EC 81 MG TAB PO SCH (08:11)
--- NOTE | 2018-09-17 12:31 | P.PN ---
Subjective Date of Service: 09/17/18 Chief Complaint: Chest pain rule out acute coronary syndrome Subjective: No new changes, Ambulating, Improving, Working w/ PT, Doing well Review of Systems 10-point ROS is otherwise unremarkable Physical Examination - Vital Signs Temperature: 97.7 F Blood Pressure: 130/81 Pulse: 67 Respirations: 15 Pulse Ox (%): 94 - Physical Exam General: Alert, In no apparent distress HEENT: Atraumatic, PERRLA, EOMI Neck: Supple, JVD not distended Respiratory: Clear to auscultation bilaterally, Normal air movement Cardiovascular: Regular rate/rhythm, Normal S1 S2 Gastrointestinal: Normal bowel sounds, No tenderness Musculoskeletal: No tenderness Integumentary: No rashes Neurological: Normal speech, Normal tone, Normal affect Lymphatics: No axilla or inguinal lymphadenopathy - Studies Medications List Reviewed: Yes Assessment And Plan - Current Problems (Diagnosis) (1) Chest pain, rule out acute myocardial infarction Current Visit: Yes Status: Acute Plan: Acute Chest Pain with now elevated troponin -troponin x2 elevated -EKG with nonspecific changes -cardiology consulted appreciated recommendations -patient scheduled for heart catheterization tomorrow (2) Hyperlipidemia Current Visit: Yes Status: Chronic (3) Hypertension Current Visit: Yes Status: Chronic (4) Obesity (BMI 30-39.9) Current Visit: Yes Status: Chronic Discharge Plan: Home Plan to discharge in: Greater than 2 days - Code Status/Comfort Care Code Status Assessed: Yes Critical Care: No
--- NOTE | 2018-09-17 19:24 | PN ---
Date of Progress Note: 09/17/2018 Mr. Tapia was seen on 09/16/2018 initially because of atypical chest pain. Initially thought that th is may have been secondary to reflux disease because his EKG was unremarkable. His initial troponin was negative. However, the second troponin came back greater than 4, consistent with non-ST elevatio n myocardial infarction. Patient has not had any further chest pain overnight. He is on aspirin, be ta-blockers, and Lovenox. We will continue his present regimen. Plan a left heart catheterization t o define his coronary anatomy on 09/18/2018. He understands the risk and the benefits of the procedu re and he agrees to proceed. ABBY/PINA Voice ID: [id number] Report ID: [id number]
[2018-09-17] MEDS: NA CHLORIDE 0.9% 1,000 ML ONE (22:48)
[2018-09-18] MEDS: NA CHLORIDE 0.9% 1,000 ML ONE (05:38)
[2018-09-18] MEDS: METOPROLOL TAR 50 MG TAB PO SCH (05:41)
[2018-09-18] MEDS: ASPIRIN EC 81 MG TAB PO SCH (05:41)
--- NOTE | 2018-09-18 07:48 | EKG ---
Test Date: 2018-09-16 Test Time: 07:17:13 Mds Nurse: MEASUREMENT RESULTS: Intervals: Rate: 58 [place]: 170 QRSD: 88 QT: 424 QTc: 416 [place]: P: 15 WA: 170 QRS: 0 T: 17 INTERPRETIVE STATEMENTS: Sinus bradycardia Otherwise normal ECG Compared to ECG 09/15/2018 23:32:45 Sinus rhythm no longer present ST (T wave) deviation no longer present Electronically Signed On 09-18-18 07:47:06 CDT by Venkatesh Carlos
[2018-09-18] MEDS: ENOXAPARIN 40 MG/0.4 ML SQ SCH (09:00)
--- NOTE | 2018-09-18 09:45 | ECHO ---
HEIGHT: 5 ft 7 in WEIGHT: 245 lb 6.4 oz DATE OF STUDY: 09/18/[address]: Shamir Kaufman MD 2-DIMENSIONAL: YES M.MODE: YES DOPPLER: YES COLOR FLOW: YES TDS: NO PORTABLE: NO DEFINITY: NO BUBBLE STUDY: NO DIAGNOSIS: CHEST PAIN CARDIAC HISTORY: CATHERIZATION: NO SURGERY: NO PROSTHETIC VALVE: NO PACEMAKER: NO MEASUREMENTS (cm) DIASTOLIC (NORMALS) SYSTOLIC (NORMALS) IVSd 1.0 (0.6-1.2) LA Diam 3.9 (1.9-4.0) LVEF 66% LVIDd 4.4 (3.5-5.7) LVIDs 2.8 (2.0-3.5) %FS 36% LVPWd 1.2 (0.6-1.2) Ao Diam 2.7 (2.0-3.7) 2 DIMENSIONAL ASSESSMENT: RIGHT ATRIUM: NORMAL LEFT ATRIUM: NORMAL RIGHT VENTRICLE: NORMAL LEFT VENTRICLE: NORMAL TRICUSPID VALVE: NORMAL MITRAL VALVE: NORMAL PULMONIC VALVE: NORMAL AORTIC VALVE: NORMAL PERICARDIAL EFFUSION: NONE AORTIC ROOT: NORMAL LEFT VENTRICULAR WALL MOTION: NORMAL DOPPLER/COLOR FLOW: PHYSIOLOGIC TRICUSPID REGURGITATION. NORMAL RIGHT VENTRICULAR SYSTOLIC PRESSURE. COMMENTS: NORMAL 2D ECHOCARDIOGRAM WITH DOPPLER. TECHNOLOGIST: Teto LEÓN
[2018-09-18] MEDS ORDERED: HEPARIN 5000 UNIT/ML 1 ML VIAL ONE (10:18)
[2018-09-18] MEDS ORDERED: NITROGLYCERIN 100 MCG/ML SYR (for cath lab use only) IV ONE (10:19)
[2018-09-18] MEDS ORDERED: NICARDIPINE HCL 25 MG/10 ML IV ONE (10:19)
[2018-09-18] MEDS ORDERED: ATROPINE SULF 1 MG/10 ML SYR IV ONE (10:19)
[2018-09-18] MEDS ORDERED: NA CHLORIDE 0.9% 0 ML ONE (10:19)
[2018-09-18] MEDS ORDERED: FENTANYL CITR 100 MCG/2 ML ONE (11:27)
[2018-09-18] MEDS ORDERED: MIDAZOLAM HCL 2 MG/2 ML INJ ONE (11:27)
--- NOTE | 2018-09-18 12:42 | P.SSS ---
Patient History Date of Service: 09/18/18 Reason for admission: Chest pain rule out acute coronary syndrome History of Present Illness: Patient is a 53-year-old gentleman who started having some chest discomfort. Pain was mainly in the sternal region. He was short of breath with the pain. The pain has not really let up since he has been in the emergency room. He was given morphine but he states the pain is down to a 5/10. He denies any diaphoresis or nausea or vomiting. Patient has multiple risk factors for heart disease. His initial troponins and EKG have been negative. At this time, he will be admitted to the hospital for observation. Will get Cardiology consultation. If his workup is negative he may get to go home for outpatient stress test. Discuss the case with Cardiology prior to discharge planning. Allergies No Known Allergies Allergy (Verified 09/16/18 02:52) Home Medications: Losartan Potassium 100 mg PO CONT 11/11/17 Lovastatin 20 mg PO DAILY 11/11/17 - Past Medical/Surgical History Has patient received pneumonia vaccine in the past: No Diabetic: No -: HYPERTENSION -: HYPERLIPIDEMIA -: KNEE SURGERY (2016) - Family History Father -: Hypertension Mother Notes: NO PMHX - Social History Smoking Status: Never smoker Alcohol use: Yes CD- Drugs: No Caffeine use: Yes Place of Residence: Home Review of Systems 10-point ROS is otherwise unremarkable Physical Examination - Vital Signs Temperature: 98.1 F Blood Pressure: 130/82 Pulse: 62 Respirations: 16 Pulse Ox (%): 97 - Physical Exam General: Alert, In no apparent distress HEENT: Atraumatic, PERRLA, Mucous membr. moist/pink, EOMI, Sclerae nonicteric Neck: Supple, 2+ carotid pulse no bruit, No LAD, Without JVD or thyroid abnormality Respiratory: Clear to auscultation bilaterally, Normal air movement Cardiovascular: Regular rate/rhythm, Normal S1 S2 Gastrointestinal: Normal bowel sounds, No tenderness Musculoskeletal: No tenderness Integumentary: No rashes Neurological: Normal gait, Normal speech, Normal strength at 5/5 x4 extr, Normal tone, Normal affect Lymphatics: No axilla or inguinal lymphadenopathy - Studies Microbiology Data (last 24 hrs): 09/16/18 10:37 Clean Catch Urine [place] Count - Final 09/16/18 10:37 Clean Catch Urine - Final No growth. - Diagnosis (Problem(s)) (1) Chest pain, rule out acute myocardial infarction Current Visit: Yes Status: Acute Plan: Acute Chest Pain with now resolved -troponin x2 elevated -EKG with nonspecific changes -cardiology consulted appreciated recommendations -S/p Cath today. No stent Placement. Medical Mgmt for HTN, HLP and low dose. (2) Hyperlipidemia Current Visit: Yes Status: Chronic Qualifiers: Hyperlipidemia type: mixed hyperlipidemia Qualified Code(s): E78.2 - Mixed hyperlipidemia (3) Hypertension Current Visit: Yes Status: Chronic Qualifiers: Hypertension type: essential hypertension Qualified Code(s): I10 - Essential (primary) hypertension (4) Obesity (BMI 30-39.9) Current Visit: Yes Status: Chronic - Disposition Disposition: ROUTINE DISCHARGE Condition: GOOD Diet: Regular Activity: Ad marty
--- NOTE | 2018-09-19 00:13 | OP ---
Surgeon: Venkatesh Carlos MD Identification: A 53-year-old man. Procedures: Left heart catheterization with coronary and left ventricular angiography. Findings: The patient's coronary arteries are normal. There is no stenosis, no spasm induced, no di ssection or flaps, in fact the arteries are probably twice the normal diameter or more of typical cor onary arteries. The left ventricular ejection fraction was normal, segmental wall motion normal, and all the pressures were within normal limits. Left ventricular end-diastolic pressure was 9. 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 He gave informed consent. He was sedated with Versed and fentanyl, prepared and draped in the usual sterile fashion. Right ra dial approach was used, 1% lidocaine was used to anesthetize the skin over the right radial artery. The artery was entered using a 21-gauge needle, cannulated with a 0.021 inch diameter guidewire, we u sed a guidewire to place a 6-Malay Terumo radial sheath, flushed the sheath, and gave a radial cockt ail consisting of nicardipine, heparin, and nitroglycerin. We guided a TIG catheter into the ascendi ng aorta using a short radius J-tip Glidewire fluoroscopy. We used the same catheter to angiogram ri ght and left coronary artery using left ventricle. At the end of the procedure, when the decision wa s made not to do any interventions we removed the wire over a straight J-wire. We flushed the sheath , removed it, and closed the arteriotomy using a TR band. Complications: None. Estimated Blood Loss: 5 mL. Mortgage Originator: Jose Amor. KRYSTA/PINA Voice ID: [id number] Report ID: [id number]
== END 2018-09-18 15:05 | disposition home or self-care (01) | DRG 282 ==
LOC: ER 23:12 → INTOOBSV 09-16 00:26 → ERHOLD 09-16 00:26 → OBSVTOIN 09-16 00:26 → 4TH 09-16 01:02 → OBSVTOIN 09-16 11:28
PROVIDERS: ADMIT Hospitalist; ATTEND Family Medicine
PROC: 4A023N7 Measurement of Cardiac Sampling and Pressure, Left Heart, Percutaneous Approach (ICD-10-PCS; principal; 2018-09-18)
PROC: B2111ZZ Fluoroscopy of Multiple Coronary Arteries using Low Osmolar Contrast (ICD-10-PCS; 2018-09-18)
PROC: B2151ZZ Fluoroscopy of Left Heart using Low Osmolar Contrast (ICD-10-PCS; 2018-09-18)
DX: I21.4 Non-ST elevation (NSTEMI) myocardial infarction (principal); I10 Essential (primary) hypertension; E78.5 Hyperlipidemia, unspecified; E66.9 Obesity, unspecified; Z68.38 Body mass index [BMI] 38.0-38.9, adult
CPT/HCPCS: 36415; 71045; 80048; 80061; 80076; 81003; 83735; 83880; 84484; 85025; 85610; 87086; 87088; 93005; 93306; 93458; 96372; 96374; 96375; 99285; C1893; C9113; G0378; J0583; J1644; J1650; J2250; J2405; J3010; J7030

== ENCOUNTER 2020-02-20 20:19 | Inpatient (IN) | payer OTHER ==
--- OUTSIDE RECORDS SUMMARY | 2020-02-20 20:21 | XMS REPORT | Clinical Summary ---
:1965 Author Organization [facility] Address [address] [place] [address] Care Team Providers Name Role Phone Keyon Nesbitt MD Primary Care Provider Allergies Active Allergy Reactions Severity Noted Date Comments Nsaids (Non-Steroidal Nausea And Vomiting, Other 11/22 Abdominal pain Anti-Inflammatory Drug) (See Comments) Medications Medication Sig Dispensed Refills Start Date End Date Status famotidine (PEPCID) 20 Take 1 tablet (20 60 tablet 0 7 Active MG tablet mg total) by mouth 2 (two) times daily. rivaroxaban (XARELTO) Take 1 tablet (10 30 tablet 0 12/09/2016 Active 10 mg Tab tablet mg total) by mouth daily with dinner. tamsulosin (FLOMAX) Take 1 capsule 30 capsule 0 12/09/2016 Active 0.4 mg Cp24 24 hr (0.4 mg total) by capsule mouth daily. Active Problems Problem Noted Date Odynophagia 12/03/2016 Essential hypertension 12/03/2016 Bilateral primary osteoarthritis of knee 11/24/2016 Social History Tobacco Use Types Packs/Day Years Used Date Never Smoker Smokeless Tobacco: Never Used Alcohol Use Drinks/Week oz/Week Comments Yes occasionally Sex Assigned at Date Recorded Not on file Last Filed Vital Signs Not on file Plan of Treatment Not on file Implants Implanted Type Area Fnp Device Shelf Model / Serial Identifier Expiration / Lot Date Cement Bone Smplx Hv W Gentam 6195-1-001 - [id number] Cement/Maurizio Left: AZAEL:AZAEL 03/16/2018 6195-1-001 / Implanted: Qty: 2 on 11/24/2016 by HarrRicky arrington Jr., MD at [facility] ler/[employer]hesi Knee [employer]THOPA[employer] / ve [id number] Cement Bone Smplx Hv W Gentam 6195-1-001 - [id number] Cement/Maurizio Right: AZAEL:AZAEL 03/16/2018 6195-1-001 / Implanted: Qty: 2 on 11/24/2016 by Ricky Ludwig Jr., MD at [facility] ler/[employer]THOPA[employer] / ve [id number] Femur Ceneted Ps Right Seize 9 Joints Right: Marina 07/14/2021 [id number] / Implanted: Qty: 1 on 11/24/2016 by Ricky Ludwig Jr., MD at [facility] Knee / [id number] Tib Cemented Stem L [id number] - [id number] Joints Left: MARINA:MARINA 08/13/2026 [id number] / Implanted: Qty: 1 on 11/24/2016 by Ricky Ludwig Jr., MD at [facility] Knee US / [id number] Fem Sz 9 L 08-3600-965-01 - [id number] Joints Left: MARINA:ZIMME R 05/14/2026 [id number] / Implanted: Qty: 1 on 11/24/2016 by Ricky Ludwig Jr., MD at [facility] Knee US / [id number] Patella Cemented 35mm [id number] - [id number] Joints Left: MARINA:CTRPULSE 08/13/2024 [id number] / Implanted: Qty: 1 on 11/24/2016 by Ricky Ludwig Jr., MD at [facility] Knee :ORTHO / [id number] Fixed Bearing Ps Left 10mm Height Joints Left: Marina 08/13/2021 [id number] / Implanted: Qty: 1 on 11/24/2016 by Ricky Ludwig Jr., MD at [facility] Knee / [id number] Patella Cemented 35mm 06-0597-445-35 - [id number] Joints Right: MARINA:CTRPULSE 10/14/2024 [id number] / Implanted: Qty: 1 on 11/24/2016 by Ricky Ludwig Jr., MD at [facility] Knee :ORTHO / [id number] Natrual Tibia Cementd 5 Degree Stemmed Size F Joints Right: 05/14/2026 [id number] / Implanted: Qty: 1 on 11/24/2016 by Ricky Ludwig Jr., MD at [facility] Knee / [id number] Fem Sz 9 R [id number] - [id number] Joints Right: MARINA:ZIMME R 04/13/2026 [id number] / Implanted: Qty: 1 on 11/24/2016 by Ricky Ludwig Jr., MD at [facility] Knee US / [id number] Results Not on fileafter 02/19/2019 Advance Directives For more information, please contact: [phone] Code Status Date Activated Date Inactivated Comments Full Code 12/03/2016 12:00 PM 12/09/2016 2:04 PM This code status was determined by: Patient Full Code 11/24/2016 7:12 PM 12/03/2016 12:00 PM This code status was determined by: Patient Full Code 11/24/2016 7:34 AM 11/24/2016 7:12 PM This code status was determined by: Patient
--- OUTSIDE RECORDS SUMMARY | 2020-02-20 20:22 | XMS REPORT | Continuity of Care Document ---
:1965 Author Organization [facility] t Address [address] [place] [address] Care Team Providers Name Role Phone Keyon Nesbitt MD Primary Care Physician Irasema CAMARILLO Attending Clinician JASSON GOULD Attending Clinician Unavailable THELMA VELASQUEZ Attending Clinician Unavailable JASSON GOULD Admitting Clinician Unavailable THELMA VELASQUEZ Admitting Clinician Unavailable Problems Condition Condition Condition Status Onset Resolution Last Treating Co mments Source Name Details Category Date Date Treatment Clinician Date Odynophagi Odynophagi Disease Active 2016-[address] [facility]: Medical 00 [place] Essential Essential Disease Active 2016-[address] [facility] hypertensi hypertensi 0-20 [facility]ita kes - on on 00:00: Medical 00 [place] Bilateral Bilateral Disease Active 2016-[address] [facility] [address] primary primary 0-11 [facility] - osteoarthr osteoarthr 00:00: Me dical itis of itis of 00 [place] knee knee HTN, goal HTN, goal Problem Active [facility] below below [facility] - 140/90 140/90 [facility] Mixed Mixed Problem Active [facility] hyperlipid hyperlipid [facility] k[facility] - emia emia [facility] Hepatitis Hepatitis Problem Active [facility] C virus C virus [facility] - infection infection Heron maribell without without l hepatic hepatic Outpati coma, coma, ent unspecifie unspecifie Cl inics d d chronicity chronicity Allergies, Adverse Reactions, Alerts Allergy Allergy Status Severity Reaction(s) Onset Inactive Treating Comm ents Source Name Type Date Date Clinician Nsaids Drug Active Nausea And 2016-[address] (Non-Arthur Intolera Vomiting, 0-09 pain Paula es - roidal nce Other (See 00:00: Medica l Anti-Inf Comments) 00 [facility] r [facility] y Drug) Social History Social Habit Start Date Stop Date Quantity Comments Source Sex Assigned At [facility] Tobacco use and 2016-11-25 2016-11-25 Never used [facility] jem - exposure 00:00:00 00:00:00 [facility] Alcohol intake 2016-11-25 2016-11-25 Current drinker of [facility] - 00[facility] 00:00:00 alcohol (finding) [facility] Alcohol Comment 2016-11-22 2016-11-[address] [facility] - 00:00:00 00:00:00 [facility] Smoking Status Start Date Stop Date Source Never smoker kes [facility] Medications Ordered Filled Start Stop Current Ordering Indication Dosage Frequency Signature Comments Components Source Medication Medication Date Date Medication? Clinician (SIG) Name Name rivaroxaban 2016-02 Yes 10mg Take [address] [facility] (XARELTO) 0-26 tablet (10 [facility] - 10 mg Tab 00:00: mg total) Med ical tablet 00 by mouth Center daily with dinner. tamsulosin 2016-02 Yes .4mg QD Take 1 [facility] (FLOMAX) 0-26 capsule [facility] - 0.4 mg Cp24 00:00: (0.4 mg Med ical 24 hr 00 total) by Center capsule mouth daily. famotidine 2016-02 Yes 20mg Q.5D Take 1 [facility] (PEPCID) 20 0-25 tablet (20 Estrellita kes - MG tablet 00:00: mg total) Med ical 00 by mouth 2 Center (two) times daily. Losartan Losartan Yes Iain [address] Potassium Potassium [place] [facility] Lovastatin Lovastatin Yes Iain [address] [facility] [place] with the [facility] - evening [facility] Procedures This patient has no known procedures. Encounters Start End Encounter Admission Attending Care Care Encounter Source Date/Time Date/Time Type Type Clinicians Facility Department ID 2018-10-19 2018-10-19 Office DAV Velasquez [id number] 08:51:17 12:18:39 Visit Ricky AMBULATOR [id number] Y [id number] 2017-09-27 2017-09-27 Outpatient Mina Briceño [id number] [facility] [address] 16:17:00 16:17:00 t Specialty/U Estrellita kes - Specialty rology [facility] a /Urology Clinic l Clinic Outpati ent Clinics 2017-09-14 2017-09-14 Outpatient Mina Briceño [id number] 14:45:00 14:45:00 t Léa et Léo s - [employer] [facility] Results Test Description Test Time Test Comments Results Result Comments Source URINE CULTURE 2016-12-05 13:17:00 Test Item Value Reference Range Interpretation Comme nts CULTURE (BEAKER) (test code = 1095) No growth COMPREHENSIVE METABOLIC [id number] 08:09:00 Test Item Value Reference Range Interpretation Comments TOTAL PROTEIN 7.0 gm/dL 6.0-8.3 (BEAKER) (test code = 770) ALBUMIN (BEAKER) 3.3 g/dL 3.5-5.0 L (test code = 1145) ALKALINE PHOSPHATASE 64 U/L 40-150 (BEAKER) (test code = 346) BILIRUBIN TOTAL 0.8 mg/dL 0.2-1.2 (BEAKER) (test code = 377) SODIUM (BEAKER) (test 136 meq/L 136-145 code = 381) POTASSIUM (BEAKER) 4.2 meq/L 3.5-5.1 (test code = 379) CHLORIDE (BEAKER) 100 meq/L 98-107 (test code = 382) CO2 (BEAKER) (test 26 meq/L 22-29 code = 355) BLOOD UREA NITROGEN 14 mg/dL 7-21 (BEAKER) (test code = 354) CREATININE (BEAKER) 0.86 mg/dL 0.57-1.25 (test code = 358) GLUCOSE RANDOM 94 mg/dL 70-105 (BEAKER) (test code = 652) CALCIUM (BEAKER) 8.7 mg/dL 8.4-10.2 (test code = 697) AST (SGOT) (BEAKER) 27 U/L 5-34 (test code = 353) ALT (SGPT) (BEAKER) 38 U/L 6-55 (test code = 347) EGFR (BEAKER) (test 93 mL/min/1.73 ESTIMA BINTA GFR IS code = 1092) sq m NOT ACCURATE CREATININE CLEARANCE IN PREDICTING GLOMERULAR FILTRATION RATE . ESTIMATED GFR I S NOT APPLICABLE FOR DIALYSIS PATIEN TS. CBC W/PLT COUNT & AUTO [id number] 07:53:00 Test Item Value Reference Range Interpretation Comments WHITE BLOOD CELL COUNT (BEAKER) 10.3 K/ L 3.5-10.5 (test code = 775) RED BLOOD CELL COUNT (BEAKER) 4.00 M/ L 4.63-6.08 L (test code = 761) HEMOGLOBIN (BEAKER) (test code = 12.8 GM/DL 13.7-17.5 L 410) HEMATOCRIT (BEAKER) (test code = 39.0 % 40.1-51.0 L 411) MEAN CORPUSCULAR VOLUME (BEAKER) 97.5 fL 79.0-92.2 H (test code = 753) MEAN CORPUSCULAR HEMOGLOBIN 32.0 pg 25.7-32.2 (BEAKER) (test code = 751) MEAN CORPUSCULAR HEMOGLOBIN CONC 32.8 GM/DL 32.3-36.5 (BEAKER) (test code = 752) RED CELL DISTRIBUTION WIDTH 12.9 % 11.6-14.4 (BEAKER) (test code = 412) PLATELET COUNT (BEAKER) (test 519 K/CU MM 150-450 H code = 756) MEAN PLATELET VOLUME (BEAKER) 8.7 fL 9.4-12.4 L (test code = 754) NUCLEATED RED BLOOD CELLS 0 /100 WBC 0-0 (BEAKER) (test code = 413) NEUTROPHILS RELATIVE PERCENT 69 % (BEAKER) (test code = 429) LYMPHOCYTES RELATIVE PERCENT 14 % (BEAKER) (test code = 430) MONOCYTES RELATIVE PERCENT 11 % (BEAKER) (test code = 431) EOSINOPHILS RELATIVE PERCENT 3 % (BEAKER) (test code = 432) BASOPHILS RELATIVE PERCENT 1 % (BEAKER) (test code = 437) NEUTROPHILS ABSOLUTE COUNT 7.07 K/ L 1.78-5.38 H (BEAKER) (test code = 670) LYMPHOCYTES ABSOLUTE COUNT 1.41 K/ L 1.32-3.57 (BEAKER) (test code = 414) MONOCYTES ABSOLUTE COUNT (BEAKER) 1.12 K/ L 0.30-0.82 H (test code = 415) EOSINOPHILS ABSOLUTE COUNT 0.27 K/ L 0.04-0.54 (BEAKER) (test code = 416) BASOPHILS ABSOLUTE COUNT (BEAKER) 0.07 K/ L 0.01-0.08 (test code = 417) IMMATURE GRANULOCYTES-RELATIVE 4 % 0-1 H PERCENT (BEAKER) (test code = 2801) PROTHROMBIN [id number] 06:49:00 Test Item Value Reference Range Interpretation Comments PROTIME (BEAKER) (test code = 15.9 seconds 11.7-14.7 H 759) INR (BEAKER) (test code = 370) 1.3 <=5.9 RECOMMENDED COUMADIN/WARFARIN INR THERAPY RANGESSTANDARD DOSE: 2.0 - 3.0 Includes: PROPHYLAXIS forvenous thrombosis, systemic embolization; TREATMENT for venous thrombosis and/or pulmonary embolus.HIGH RISK: Target INR is 2.5-3.5 for patients with mechanical heart valves.RAPID STREP A [id number] 17:49:00 Test Item Value Reference Range Interpretation Comments STREP A ANTIGEN (BEAKER) (test code Negative Negative = 556) URINALYSIS W/ [id number] 17:39:00 Test Item Value Reference Range Interpretation Comments COLOR (BEAKER) (test code Light Yellow = 470) CLARITY (BEAKER) (test Clear code = 469) SPECIFIC GRAVITY UA 1.004 1.001-1.035 (BEAKER) (test code = 468) PH UA (BEAKER) (test code 6.0 5.0-8.0 = 467) PROTEIN UA (BEAKER) (test Negative Negative code = 464) GLUCOSE UA (BEAKER) (test Negative Negative code = 365) KETONES UA (BEAKER) (test Negative Negative code = 371) BILIRUBIN UA (BEAKER) Negative Negative (test code = 462) BLOOD UA (BEAKER) (test Negative Negative code = 461) NITRITE UA (BEAKER) (test Negative Negative code = 465) LEUKOCYTE ESTERASE UA Negative Negative (BEAKER) (test code = 466) UROBILINOGEN UA (BEAKER) 2.0 mg/dL 0.2-1.0 H (test code = 463) RBC UA (BEAKER) (test code 0 /HPF = 519) WBC UA (BEAKER) (test code < /HPF = 520) SQUAMOUS EPITHELIAL < /HPF (BEAKER) (test code = 516) SOURCE(BEAKER) (test code Urine, Clean Catch = 2795) RAD, ABDOMEN/KUB, 1 VIEW [id number] 10:41:00Reason for exam:->constipation FINAL REPORT Two abdomen images Discussion: Nonspecific bowel gas pattern with air-filled mildly prominent small bowel loops. No particularly concerning degree of retained feces.No evidence of free intraperitoneal air. Signed: Denzel Starr MDReport Verified Date/Time: 12/03/2016 10:41:38 Reading Location: [facility] Radiology Reading Room TISSUE EXAM 2016-12-02 09:25:00Surgical Pathology Report Case: [id number] Authorizing Provider: Ricky Velasquez Collected: 11/24/2016 1154 MD Thelma [facility] Received: 11/24/2016 1307 SERVICES Pathologist: Jose G Shepard MD Specimens: A) -Condyle,Left Knee B) - Condyle,Right Knee A. BONE AND SOFT TISSUE, LEFT KNEE, ARTHROPLASTY: - OSTEOARTHRITIS AND CHRONIC SYNOVITIS B. BONE AND SOFT TISSUE, RIGHT KNEE, ARTHROPLASTY: - OSTEOARTHRITIS AND CHRONIC SYNOVITIS Signing Pathologist Direct PhoneLine: [phone] signed by Jose G Shepard MD on 12/02/2016 at 9:25 [id number] left kneeA. Left knee condyle; B. Right [...] tissue reveals subsynovial edema with chronic inflammation. HEMOGLOBIN AND [id number] 09:32:00 Test Item Value Reference Range Interpretation Comments HEMOGLOBIN (BEAKER) (test code = 11.9 GM/DL 13.7-17.5 L 410) HEMATOCRIT (BEAKER) (test code = 36.1 % 40.1-51.0 L 411) BASIC METABOLIC [id number] 08:09:00 Test Item Value Reference Range Interpretation Comments SODIUM (BEAKER) 135 meq/L 136-145 L (test code = 381) POTASSIUM (BEAKER) 4.1 meq/L 3.5-5.1 (test code = 379) CHLORIDE (BEAKER) 100 meq/L 98-107 (test code = 382) CO2 (BEAKER) (test 27 meq/L 22-29 code = 355) BLOOD UREA NITROGEN 10 mg/dL 7-21 (BEAKER) (test code = 354) CREATININE (BEAKER) 1.06 mg/dL 0.57-1.25 (test code = 358) GLUCOSE RANDOM 131 mg/dL 70-105 H (BEAKER) (test code = 652) CALCIUM (BEAKER) 8.7 mg/dL 8.4-10.2 (test code = 697) EGFR (BEAKER) (test 73 mL/min/1.73 ESTIMA BINTA GFR IS code = 1092) sq m NOT ACCURATE CREATININE CLEARANCE IN PREDICTING GLOMERULAR FILTRATION RATE . ESTIMATED GFR I S NOT APPLICABLE FOR DIALYSIS PATIEN TS. HEMOGLOBIN AND [id number] 07:45:00 Test Item Value Reference Range Interpretation Comments HEMOGLOBIN (BEAKER) (test code = 13.8 GM/DL 13.7-17.5 410) HEMATOCRIT (BEAKER) (test code = 40.7 % 40.1-51.0 411) BASIC METABOLIC [id number] 06:44:00 Test Item Value Reference Range Interpretation Comments SODIUM (BEAKER) 136 meq/L 136-145 (test code = 381) POTASSIUM (BEAKER) 4.0 meq/L 3.5-5.1 (test code = 379) CHLORIDE (BEAKER) 105 meq/L 98-107 (test code = 382) CO2 (BEAKER) (test 25 meq/L 22-29 code = 355) BLOOD UREA NITROGEN 9 mg/dL 7-21 (BEAKER) (test code = 354) CREATININE (BEAKER) 0.83 mg/dL 0.57-1.25 (test code = 358) GLUCOSE RANDOM 117 mg/dL 70-105 H (BEAKER) (test code = 652) CALCIUM (BEAKER) 8.2 mg/dL 8.4-10.2 L (test code = 697) EGFR (BEAKER) (test 97 mL/min/1.73 ESTIMA BINTA GFR IS code = 1092) sq m NOT ACCURATE CREATININE CLEARANCE IN PREDICTING GLOMERULAR FILTRATION RATE . ESTIMATED GFR I S NOT APPLICABLE FOR DIALYSIS PATIEN TS. HEMOGLOBIN AND [id number] 06:19:00 Test Item Value Reference Range Interpretation Comments HEMOGLOBIN (BEAKER) (test code = 14.7 GM/DL 13.7-17.5 410) HEMATOCRIT (BEAKER) (test code = 43.7 % 40.1-51.0 411) RAD, KNEE, 1 OR 2 VIEWS, [id number] 16:42:00Of operative side while in recovery room.Reason for exam:->eval implantsFINAL REPORT COMPARISON: No comparison left knee imaging HISTORY: Left knee pain, status post knee arthroplasty FINDINGS: AP and lateral radiographs of the left knee demonstratepostoperative changes consistent with total arthroplasty. Arthroplasty alignment appears anatomic. No periprosthetic fracture is identified. Signed: Justino Rivera [facility] Verified Date/Time: 11/24/2016 16:42:12 Reading Location: [facility] Radiology Reading Room RAD, KNEE, 1 OR 2 VIEWS, [id number] 16:33:00Of operative side while in recovery room.Reason for exam:->eval implantsFINAL REPORT EXAM: AP and lateral views of the right knee HISTORY PROVIDED: Evaluate implants COMPARISON: None available IMPRESSION:The patient is status post right total knee arthroplasty with hardware in place in gross alignment. No fracture or dislocation. There is postoperative soft tissue swelling and air. Signed: [facility] Verified Date/Time: 11/24/201616:33:57 Reading Location: [facility] Reading Room
[2020-02-20] MEDS ORDERED: NA CHLORIDE 0.9% 3,000 ML ONE (21:22)
[2020-02-20] MEDS ORDERED: dexAMETHasone 10 MG/ML VIAL ONE (21:27)
[2020-02-20] MEDS ORDERED: ACETAMINOPHEN 500 MG TAB ONE (21:27)
[2020-02-20] MEDS ORDERED: ASPIRIN EC 81 MG TAB PO ONE (21:27)
[2020-02-20] MEDS ORDERED: NA CHLORIDE 0.9% 250 ML ONE (21:28)
[2020-02-20] MEDS ORDERED: ALBUTEROL INHALER 60 PUFF/8 GM IH ONE (21:28)
[2020-02-20] MEDS ORDERED: AZITHROMYCIN 500 MG INJ IVPB ONE (21:28)
[2020-02-20] MEDS ORDERED: FAMOTIDINE 20 MG/2 ML VIAL IV ONE (21:28)
[2020-02-20] MEDS ORDERED: CEFTRIAXONE/SWI 1gm 1 GM/10 ML SYR ONE (21:28)
[2020-02-20 21:33] LABS: Absolute Lymphocytes (CBC) 0.5 K/uL (0.7-4.9); Basophils % 0.2 % (0-1.3); Hematocrit 43.3 % (39.6-49.0); Lymphocytes % 3.5 % (15.3-44.8); MPV 8.2 fL (7.6-11.3); RBC Red Blood Cell Count 4.54 M/uL (4.33-5.43)
[2020-02-20 21:35] LABS: Protime INR 1.03
[2020-02-20 21:53] LABS: ALT/SGPT 36 U/L (12-78); AST/SGOT 43 U/L (15-37); Albumin 2.8 g/dL (3.4-5.0); Alkaline Phosphatase 57 U/L (45-117); Amylase 40 U/L (25-115); BUN Blood Urea Nitrogen 13 mg/dL (7-18); Bicarbonate 28 mmol/L (21-32); Bilirubin Direct 0.1 mg/dL (0-0.2); Bilirubin Total 0.5 mg/dL (0.2-1.0); Creatine Phosphokinase 324 U/L (39-308); Ferritin 787.9 ng/mL (26-388); Glucose Level 95 mg/dL (74-106); Lipase 79 U/L (73-393); NT PRO-BNP 307 pg/mL (<125); Potassium 3.7 mmol/L (3.5-5.1); Protein, Total 7.2 g/dL (6.4-8.2); Sodium Level 134 mmol/L (136-145); Troponin (Emerg Dept Use Only) < 0.02 ng/mL (0.0-0.045)
--- NOTE | 2020-02-20 21:53 | ER ---
Nurse's Notes [facility] Name: Alan Tapia Age: 54 yrs Sex: Male : 1965 Arrival Date: 02/20/2020 Time: 20:20 Bed External Waiting Private MD: Diagnosis: SARS-associated coronavirus as the cause of diseases classified elsewhere-covid 19;Essential (primary) hypertension;Hypoxemia;Viral pneumonia, unspecified-bilateral multifocal;Fever, unspecified Presentation: 02/19 20:36 Chief complaint: Patient states: Diagnosed with covid 02/13. Has had cough since 02/08. ll1 SOB for 2 days. Medications given to him aren't helping. + fever, weakness, fatigue. Coronavirus screen: Client indicates they have traveled out of the [place] in the last 14 days. Client traveled to: [place] congestion, cough unrelated to allergies, difficulty breathing, fatigue, fever, Client presents with at least one sign or symptom that may indicate coronavirus-19. Standard/surgical mask placed on the client. Ebola Screen: Patient denies travel to an Ebola-affected area in the 21 days before illness onset. Initial Sepsis Screen: Does the patient meet any 2 criteria? Temp <36.0*C (96.8*F)) or > 38.3*C (100.9*F). HR > 90 bpm. Yes Does the patient have a suspected source of infection? Yes: Productive cough/pneumonia. Risk Assessment: Do you want to hurt yourself or someone else? Patient reports no desire to harm self or others. Onset of symptoms was February 09, 2020. 20:36 Method Of Arrival: Ambulatory ll1 20:36 Acuity: EVELYN 2 ll1 Historical: - Allergies: 20:36 No Known Allergies; ll1 - PMHx: 20:36 High Cholesterol; Hypertension; ll1 - PSHx: 20:36 knee sx; ll1 - Immunization history:: Flu vaccine is not up to date. - Social history:: Smoking status: Patient denies any tobacco usage or history of. Screenin:00 Abuse screen: Denies threats or abuse. Denies injuries from another. Nutritional mg2 screening: No deficits noted. Tuberculosis screening: No symptoms or risk factors identified. Fall Risk IV access (20 points). Assessment: 20:58 General: Appears in no apparent distress. comfortable, Behavior is calm, cooperative. mg2 Pain: Denies pain. Neuro: Level of Consciousness is awake, alert, obeys commands, Oriented to person, place, time, situation. Cardiovascular: Rhythm is. Respiratory: Reports shortness of breath at rest Airway is patent Respiratory effort is even, unlabored, Respiratory pattern is regular, symmetrical. GI: No signs and/or symptoms were reported involving the gastrointestinal system. : No signs and/or symptoms were reported regarding the genitourinary system. EENT: No signs and/or symptoms were reported regarding the EENT system. Derm: Skin is intact, is healthy with good turgor, Skin is pink, warm \T\ dry. normal. Musculoskeletal: Circulation, motion, and sensation intact. Capillary refill < 3 seconds. 21:20 Reassessment: Patient and/or family updated on plan of care and expected duration. Pain ea level reassessed. Patient is alert, oriented x 3, equal unlabored respirations, skin warm/dry/pink. Respiratory at bedside, pt placed on high flow O2, pt tolerating well. 22:54 Reassessment: Patient and/or family updated on plan of care and expected duration. Pain ea level reassessed. Patient is alert, oriented x 3, equal unlabored respirations, skin warm/dry/pink. Pt remains on high flow O2, tolerating well. Pt verbalized the understanding of need for admit. 23:26 Reassessment: Patient and/or family updated on plan of care and expected duration. Pain ea level reassessed. Patient is alert, oriented x 3, equal unlabored respirations, skin warm/dry/pink. Pt admitted to fourth floor, reports given to receiving nurse. Pt left ED via wheelchair per ED nurse, pt on O2 per nasal cannula, pt tolerating well. Vital Signs: 20:36 BP 153 / 83; Pulse 96; Resp 24; Temp 102.3; Pulse Ox 89% on R/A; Weight 111.13 kg; ll1 Height 5 ft. 7 in. (170.18 cm); Pain 2/10; 20:43 BP 164 / 88; Pulse Ox 92% on 2 lpm NC; mg2 22:56 BP 145 / 77; Pulse 84; Resp 20; Temp 100.2; Pulse Ox 95% on NC; ea 23:27 BP 154 / 72; Pulse 80; Resp 20; Temp 99.6; Pulse Ox 97% on NC; ea 20:36 Body Mass Index 38.37 (111.13 kg, 170.18 cm) ll1 ED Course: 20:20 Patient arrived in ED. cl3 20:35 Arm band placed on. ll1 20:38 Triage completed. ll1 20:42 Lacey Taylor RN is Primary Nurse. ea 20:47 Ramin Bartlett MD is Attending Physician. lilian 21:00 No provider procedures requiring assistance completed. Inserted saline lock: 20 gauge mg2 in right antecubital area, using aseptic technique. Blood collected. 21:01 Patient has correct armband on for positive identification. mg2 21:24 Chest Single View XRAY In Process Unspecified. EDMS 21:51 Cyrus Sauer DO is Hospitalizing Provider. lilian 22:54 Patient admitted, IV remains in place. ea 02/20 00:59 Primary Nurse role handed off by Lacey Taylor RN ea Administered Medications: 02/19 21:15 Drug: NS 0.9% (30 ml/kg) 30 ml/kg Route: IV; Rate: bolus; Site: right forearm; mg2 21:19 Drug: Albuterol HFA Inhaler 4 puffs Route: Inhalation; ea 22:59 Follow up: Response: No adverse reaction ea 21:30 Drug: Decadron - Dexamethasone 10 mg Route: IVP; Site: right antecubital; ea 22:58 Follow up: Response: No adverse reaction ea 21:34 Drug: Tylenol 1000 mg Route: PO; ea 22:58 Follow up: Response: No adverse reaction ea 21:34 Drug: Pepcid 40 mg Route: IVP; Site: right antecubital; ea 22:58 Follow up: Response: No adverse reaction ea 21:35 Drug: Rocephin 1 grams Route: IV; Rate: per protocol; Site: right antecubital; ea 21:39 Follow up: Response: No adverse reaction; IV Status: Completed infusion; IV Intake: 10mlea 21:35 Drug: Aspirin 162 mg Route: PO; ea 22:58 Follow up: Response: No adverse reaction ea 21:39 Drug: Zithromax 500 mg Route: IVPB; Infused Over: 1 hrs; Site: right antecubital; ea 23:05 Follow up: IV Status: Completed infusion mg2 22:00 Drug: o2 via HIFlo NC 1 application Route: Inhalation; sg Intake: 21:39 IV: 10ml; Total: 10ml. Outcome: 21:52 Decision to Hospitalize by Provider. lilian 22:53 Condition: stable ea 22:53 Instructed on the need for admit, Demonstrated understanding of instructions. 23:14 Admitted to Med/surg accompanied by nurse, via wheelchair, room 203, with oxygen, with mg2 chart, Report called to VITO Ibarra 23:28 Patient left the ED. ea 02/20 01:00 Patient left the ED. sg 01:06 Patient left the ED. sg Signatures: Dispatcher [employer] EDMS Viet Leonardo RN RN sg Ramin Bartlett MD MD cha Antunez, Elena RN RN Chris Wilder RN RN Marco A Doe Lynsay, RN RN ll1 Corrections: (The following items were deleted from the chart) 02/19 22:57 22:56 BP 145 / 77; Pulse 84bpm; Resp 20bpm; Pulse Ox 95%; Temp 100.2F; ea 02/20 01:06 02/19 19:00 o2 via HIFlo NC 1 application Inhalation sg sg
--- NOTE | 2020-02-20 21:53 | EDPHYS ---
Physician Documentation [facility] Name: Alan Tapia Age: 54 yrs Sex: Male : 1965 Arrival Date: 02/20/2020 Time: 20:20 Bed External Waiting Private MD: ED Physician Ramin Bartlett HPI: 02/19 21:05 This 54 yrs old Male presents to ER via Ambulatory with complaints of lilian Shortness Of Breath - COVID 19 +. 21:05 The patient has shortness of breath at rest, with light activity. Onset: The lilian symptoms/episode began/occurred 8 day(s) ago. Duration: The symptoms are continuous, and are steadily getting worse. The patient's shortness of breath is aggravated by coughing. Associated signs and symptoms: Pertinent positives: non-productive cough. Severity of symptoms: At their worst the symptoms were moderate in the emergency department the symptoms are unchanged. The patient has not experienced similar symptoms in the past. Historical: - Allergies: 20:36 No Known Allergies; ll1 - PMHx: 20:36 High Cholesterol; Hypertension; ll1 - PSHx: 20:36 knee sx; ll1 - Immunization history:: Flu vaccine is not up to date. - Social history:: Smoking status: Patient denies any tobacco usage or history of. ROS: 21:07 Constitutional: Negative for fever, chills, and weight loss, Eyes: Negative for injury, lilian pain, redness, and discharge, ENT: Negative for injury, pain, and discharge, Neck: Negative for injury, pain, and swelling, Cardiovascular: Negative for chest pain, palpitations, and edema, Abdomen/GI: Negative for abdominal pain, nausea, vomiting, diarrhea, and constipation, Back: Negative for injury and pain, : Negative for injury, bleeding, discharge, and swelling, MS/Extremity: Negative for injury and deformity, Skin: Negative for injury, rash, and discoloration, Neuro: Negative for headache, weakness, numbness, tingling, and seizure, Psych: Negative for depression, anxiety, suicide ideation, homicidal ideation, and hallucinations, Allergy/Immunology: Negative for hives, rash, and allergies, Endocrine: Negative for neck swelling, polydipsia, polyuria, polyphagia, and marked weight changes, Hematologic/Lymphatic: Negative for swollen nodes, abnormal bleeding, and unusual bruising. 21:07 Respiratory: Positive for cough, shortness of breath. Exam: 21:07 Constitutional: This is a well developed, well nourished patient who is awake, alert, lilian and in no acute distress. Head/Face: Normocephalic, atraumatic. Eyes: Pupils equal round and reactive to light, extra-ocular motions intact. Lids and lashes normal. Conjunctiva and sclera are non-icteric and not injected. Cornea within normal limits. Periorbital areas with no swelling, redness, or edema. ENT: Nares patent. No nasal discharge, no septal abnormalities noted. Tympanic membranes are normal and external auditory canals are clear. Oropharynx with no redness, swelling, or masses, exudates, or evidence of obstruction, uvula midline. Mucous membranes moist. Neck: Trachea midline, no thyromegaly or masses palpated, and no cervical lymphadenopathy. Supple, full range of motion without nuchal rigidity, or vertebral point tenderness. No Meningismus. Chest/axilla: Normal chest wall appearance and motion. Nontender with no deformity. No lesions are appreciated. Abdomen/GI: Soft, non-tender, with normal bowel sounds. No distension or tympany. No guarding or rebound. No evidence of tenderness throughout. Back: No spinal tenderness. No costovertebral tenderness. Full range of motion. Male : Normal genitalia with no discharge or lesions. Skin: Warm, dry with normal turgor. Normal color with no rashes, no lesions, and no evidence of cellulitis. MS/ Extremity: Pulses equal, no cyanosis. Neurovascular intact. Full, normal range of motion. Neuro: Awake and alert, GCS 15, oriented to person, place, time, and situation. Cranial nerves II-XII grossly intact. Motor strength 5/5 in all extremities. Sensory grossly intact. Cerebellar exam normal. Normal gait. Psych: Awake, alert, with orientation to person, place and time. Behavior, mood, and affect are within normal limits. 21:07 Cardiovascular: Rate: tachycardic, Rhythm: regular, Pulses: Pulses are 4+ in bilateral radial, brachial, femoral, popliteal, posterior tibial and and dorsalis pedis arteries.. Heart sounds: normal, Edema: is not appreciated, JVD: is not appreciated. 21:07 Musculoskeletal/extremity: DVT Exam: No signs of deep vein thrombosis. no pain, no swelling, no tenderness, negative Homans' sign noted on exam, no appreciated bluish discoloration, no erythema, no increased warmth. 21:53 ECG was reviewed by the Attending Physician. [facility] Vital Signs: 20:36 BP 153 / 83; Pulse 96; Resp 24; Temp 102.3; Pulse Ox 89% on R/A; Weight 111.13 kg; ll1 Height 5 ft. 7 in. (170.18 cm); Pain 2/10; 20:43 BP 164 / 88; Pulse Ox 92% on 2 lpm NC; mg2 22:56 BP 145 / 77; Pulse 84; Resp 20; Temp 100.2; Pulse Ox 95% on NC; ea 23:27 BP 154 / 72; Pulse 80; Resp 20; Temp 99.6; Pulse Ox 97% on NC; ea 20:36 Body Mass Index 38.37 (111.13 kg, 170.18 cm) ll1 MDM: 20:47 Patient medically screened. [facility] 21:09 Differential diagnosis: asthma, Bronchitis CHF exacerbation, bacterial infection, URI, lilian bronchitis, pneumonia UTI, pneumonia, pulmonary edema, Pulmonary Embolism Sepsis Unstable Angina. Antibiotic administration: Rocephin and Zithromax given. Differential Diagnosis sepsis, flu. The patient's Wells Deep Vein Thrombosis Score was calculated as follows: Heart Rate >100 BPM (1.5 Pts) Total Score: 0-2 Pts- Low Risk. The patient's pulmonary embolism risk score was calculated as follows: the patients heart rate is greater than 100 beats per minute (1.5 Pts) Total Score: 0-2 points. This patient was found to be at low risk for a pulmonary embolism by using the Well's assessment criteria. Immunization status: Influenza vaccine:. Data reviewed: vital signs, nurses notes, lab test result(s), EKG, radiologic studies, CT scan, plain films. Data interpreted: extrusion engineer: rate is 96 beats/min, rhythm is regular, Pulse oximetry: is not applicable for this patient encounter. Test interpretation: by ED physician or midlevel provider: ECG, plain radiologic studies. Counseling: I had a detailed discussion with the patient and/or guardian regarding: the historical points, exam findings, and any diagnostic results supporting the discharge/admit diagnosis, lab results, radiology results, the need for further work-up and treatment in the hospital. 01/06 21:02 Order name: Amylase, Serum mg2 02/19 21:02 Order name: Basic Metabolic Panel mg2 02/19 21:02 Order name: Blood Culture Adult (2) mg2 02/19 21:02 Order name: CBC with Diff; Complete Time: 22:21 mg2 02/19 21:02 Order name: Ckmb; Complete Time: 22:01 mg2 02/19 21:02 Order name: CPK; Complete Time: 22:01 mg2 02/19 21:02 Order name: Lactate; Complete Time: 22:01 mg2 02/19 21:02 Order name: LFT's; Complete Time: 22:01 mg2 02/19 21:02 Order name: Lipase; Complete Time: 22:01 mg2 02/19 21:02 Order name: Procalcitonin; Complete Time: 22:21 mg2 02/19 21:02 Order name: Protime (+inr); Complete Time: 21:50 mg2 02/19 21:02 Order name: Ptt, Activated; Complete Time: 21:50 mg2 02/19 21:02 Order name: Troponin (emerg Dept Use Only); Complete Time: 22:01 mg2 02/19 21:02 Order name: Urine Microscopic Only; Complete Time: 22:01 mg2 02/19 21:02 Order name: Chest Single View XRAY mg2 02/19 21:02 Order name: Magnesium; Complete Time: 22:01 lilian 02/19 21:02 Order name: NT PRO-BNP; Complete Time: 22:01 lilian 02/19 21:02 Order name: Blood Culture Adult (2) lilian 02/19 21:02 Order name: CRP; Complete Time: 22:01 lilian 02/19 21:02 Order name: Ferritin; Complete Time: 22:01 liilan 02/19 21:03 Order name: Amylase; Complete Time: 22:01 EDMS 02/19 21:03 Order name: Basic Metabolic Panel; Complete Time: 22:01 EDMS 02/19 21:10 Order name: Glucose, Ancillary Testing; Complete Time: 21:50 EDMS 02/19 21:13 Order name: Urine Dipstick--Ancillary (enter results); Complete Time: 22:01 mw2 02/19 21:36 Order name: Manual Differential; Complete Time: 22:21 EDMS 02/19 21:02 Order name: EKG; Complete Time: 21:04 [facility] 02/19 21:02 Order name: Cardiac monitoring; Complete Time: 21:14 [facility] 02/19 21:02 Order name: EKG - Nurse/Tech; Complete Time: 21: [facility] 02/19 21:02 Order name: IV Saline Lock; Complete Time: 21:14 [facility] 02/19 21:02 Order name: Labs collected and sent; Complete Time: 21:14 [facility] 02/19 21:02 Order name: O2 Per Protocol; Complete Time: 21: [facility] 02/19 21:02 Order name: O2 Sat Monitoring; Complete Time: 21: [facility] 02/19 21:02 Order name: CT Chest For PE Angio [facility] 02/19 21:02 Order name: Urine Dipstick-Ancillary (obtain specimen); Complete Time: : [facility] EC:53 Rate is 90 beats/min. Rhythm is regular. QRS [place] is Normal. [place] interval is normal. QRS lilian interval is normal. QT interval is normal. No Q waves. T waves are Normal. No ST changes noted. Clinical impression: NSR w/ Non-specific ST/T Changes and No evidence of ischemia. Interpreted by me. Reviewed by me. Administered Medications: 21:15 Drug: NS 0.9% (30 ml/kg) 30 ml/kg Route: IV; Rate: bolus; Site: right forearm; mg2 21:19 Drug: Albuterol HFA Inhaler 4 puffs Route: Inhalation; ea 22:59 Follow up: Response: No adverse reaction ea 21:30 Drug: Decadron - Dexamethasone 10 mg Route: IVP; Site: right antecubital; ea 22:58 Follow up: Response: No adverse reaction ea 21:34 Drug: Tylenol 1000 mg Route: PO; ea 22:58 Follow up: Response: No adverse reaction ea 21:34 Drug: Pepcid 40 mg Route: IVP; Site: right antecubital; ea 22:58 Follow up: Response: No adverse reaction ea 21:35 Drug: Rocephin 1 grams Route: IV; Rate: per protocol; Site: right antecubital; ea 21:39 Follow up: Response: No adverse reaction; IV Status: Completed infusion; IV Intake: 10mlea 21:35 Drug: Aspirin 162 mg Route: PO; ea 22:58 Follow up: Response: No adverse reaction ea 21:39 Drug: Zithromax 500 mg Route: IVPB; Infused Over: 1 hrs; Site: right antecubital; ea 23:05 Follow up: IV Status: Completed infusion mg2 22:00 Drug: o2 via HIFlo NC 1 application Route: Inhalation; sg Disposition: 02/20/20 21:52 Hospitalization ordered by Cyrus Sauer for Inpatient Admission. Preliminary diagnosis are SARS-associated coronavirus as the cause of diseases classified elsewhere - covid 19, Essential (primary) hypertension, Hypoxemia, Viral pneumonia, unspecified - bilateral multifocal, Fever, unspecified. - Bed requested for Telemetry/MedSurg (Inpatient). - Status is Inpatient Admission. sg - Condition is Fair. - Problem is new. - Symptoms have improved. Signatures: Dispatcher [employer] EDMS Viet Leonardo, Ramin Maria RN, MD MD cha Attema, Lee, [employer]1 Tanisha Wilson RN RN cg Antunez, Elena, RN RN ea Gardose, Michele, RN RN mg2 Lewis, Lynsay, RN RN ll1 Corrections: (The following items were deleted from the chart) 21:05 21:04 BASIC METABOLIC PANEL+C.LAB.BRZ ordered. EDAK EDMS 21:05 21:04 CBC+H.LAB.BRZ ordered. EDAK EDAK 21:05 21:04 HEPATIC FUNCTION+C.LAB.BRZ ordered. EDAK EDAK 21:05 21:04 PROTIME (+INR)+COAG.LAB.BRZ ordered. EDAK EDAK 21:05 21:04 TROPONIN (EMERG DEPT USE ONLY)+C.LAB.BRZ ordered. EDAK EDAK 21:07 21:04 Chest Single View+RAD.RAD.BRZ ordered. EDAK EDAK 21:15 21:02 Accucheck ordered. mg2 mg2 21:15 21:02 Cardiac monitoring ordered. mg2 mg2 21:16 21:02 EKG - Nurse/Tech ordered. mg2 mg2 21:16 21:02 IV Saline Lock - Large Bore ordered. mg2 mg2 21:16 21:02 Labs collected and sent ordered. mg2 mg2 21:17 21:02 Oxygen Per Protocol ordered. mg2 mg2 21:17 21:02 O2 Sat Monitoring ordered. mg2 mg2 21: 21:02 Urine Dipstick-Ancillary ordered. mg2 mg2 23:00 21:52 Hospitalization Ordered by Cyrus Sauer DO for Inpatient Admission. Preliminary cg diagnosis is SARS-associated coronavirus as the cause of diseases classified elsewhere - covid 19; Essential (primary) hypertension; Hypoxemia; Viral pneumonia, unspecified - bilateral multifocal; Fever, unspecified. Bed requested for Telemetry/MedSurg (Inpatient). Status is Inpatient Admission. Condition is Fair. Problem is new. Symptoms have improved. lilian : 23:00 02/20/2020 21:52 Hospitalization Ordered by Cyrus Sauer DO for Inpatient ea Admission. Preliminary diagnosis is SARS-associated coronavirus as the cause of diseases classified elsewhere - covid 19; Essential (primary) hypertension; Hypoxemia; Viral pneumonia, unspecified - bilateral multifocal; Fever, unspecified. Bed requested for Telemetry/MedSurg (Inpatient). Status is Inpatient Admission. Condition is Fair. Problem is new. Symptoms have improved. cg 02/20 01:00 01 23:28 02/20/2020 21:52 Hospitalization Ordered by Cyrus Sauer DO for Inpatient sg Admission. Preliminary diagnosis is SARS-associated coronavirus as the cause of diseases classified elsewhere - covid 19; Essential (primary) hypertension; Hypoxemia; Viral pneumonia, unspecified - bilateral multifocal; Fever, unspecified. Bed requested for Telemetry/MedSurg (Inpatient). Status is Inpatient Admission. Condition is Fair. Problem is new. Symptoms have improved. ea 02/20 01:06 01:00 02/20/2020 21:52 Hospitalization Ordered by Cyrus Sauer DO for Inpatient sg Admission. Preliminary diagnosis is SARS-associated coronavirus as the cause of diseases classified elsewhere - covid 19; Essential (primary) hypertension; Hypoxemia; Viral pneumonia, unspecified - bilateral multifocal; Fever, unspecified. Bed requested for Telemetry/MedSurg (Inpatient). Status is Inpatient Admission. Condition is Fair. Problem is new. Symptoms have improved. sg
[2020-02-20 21:56] LABS: Urine Bacteria <20 /HPF (NONE SEEN); Urine RBC NONE SEEN /HPF (NONE SEEN); Urine Urothelial Cells <5 /HPF (NONE SEEN)
[2020-02-20 21:57] LABS: Urine Blood TRACE (NEG); Urine Glucose NEGATIVE (NEG); Urine Protein NEGATIVE (NEG)
[2020-02-20 22:03] LABS: Blood Morphology Comment NOT SEEN (NOT SEEN); Platelet Estimate ADEQ
[2020-02-20] MEDS ORDERED: ONDANSETRON 4 MG/2 ML VIAL IV PRN (23:19)
[2020-02-20] MEDS ORDERED: MELATONIN 5 MG TABLET PO PRN (23:19)
[2020-02-20] MEDS ORDERED: ACETAMINOPHEN 500 MG TAB PO PRN (23:19)
--- NOTE | 2020-02-20 23:24 | P.HP ---
Certification for Inpatient Patient admitted to: Inpatient With expected LOS: >2 Midnights Patient will require the following post-hospital care: None Practitioner: I am a practitioner with admitting privileges, knowledge of patient current condition, hospital course, and medical plan of care. Services: Services provided to patient in accordance with Admission requirements found in Title 42 Section 412.3 of the Code of Federal Regulations <Jean Hebert - Last Filed: 02/20/20 23:21> Patient History Date of Service: 02/20/20 Reason for admission: COVID pneumonia History of Present Illness: 54-year-old male with history of hypertension, hyperlipidemia presented to the emergency department for shortness of breath. Patient reports testing positive for COVID on 02/13 but having symptoms as early as 5 days prior to this. Patient was on oral steroids at home, not improving. Patient was 88% on room air initial CRP 217 ferritin 787. Chest x-ray of ground-glass opacities bilaterally ED provider wishes to admit patient for further evaluation and management. When I saw the patient he was on high-flow oxygen saturating in the 90s. Does not appear septic, will be admitted for further evaluation and management. 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 - Family History Father -: Hypertension Mother Notes: NO PMHX - Social History Smoking Status: Never smoker Alcohol use: Yes CD- Drugs: No Caffeine use: Yes Place of Residence: Home <Jean Hebert - Last Filed: 02/20/20 23:21> Date of Service: 02/21/20 <Cyrus Sauer - Last Filed: 02/21/20 14:13> Allergies No Known Allergies Allergy (Verified 09/16/18 02:52) Home Medications: Losartan Potassium 100 mg PO DAILY 11/11/17 Lovastatin 20 mg PO BEDTIME 11/11/17 Review of Systems General: Fever, Chills, Weakness, Malaise Respiratory: Cough, Shortness of Breath <Jean Hebert - Last Filed: 02/20/20 23:21> Physical Examination - Physical Exam General: Alert, In no apparent distress HEENT: Atraumatic, PERRLA, Mucous membr. moist/pink Neck: Supple, 2+ carotid pulse no bruit, No LAD Respiratory: Normal air movement, Diminished (Bilaterally) Cardiovascular: Regular rate/rhythm, Normal S1 S2 Capillary refill: <2 Seconds Gastrointestinal: Normal bowel sounds, No tenderness Musculoskeletal: No contractures, No erythema, No tenderness Integumentary: No rashes Neurological: Normal speech, Normal strength at 5/5 x4 extr, Normal tone - Studies Laboratory Data (last 24 hrs) 02/20/20 20:25: PT 12.1, INR 1.03, APTT 29.1 02/20/20 20:25: WBC 13.6 H, Hgb 14.7, Hct 43.3, Plt Count 301 02/20/20 20:25: Sodium 134 L, Potassium 3.7, BUN 13, Creatinine 1.06, Glucose 95, Magnesium 2.0, Total Bilirubin 0.5, AST 43 H, ALT 36, Alkaline Phosphatase 57, Amylase 40, Lipase 79 <Jean Hebert - Last Filed: 02/20/20 23:21> - Studies Laboratory Data (last 24 hrs) 02/20/20 20:25: PT 12.1, INR 1.03, APTT 29.1 02/20/20 20:25: WBC 13.6 H, Hgb 14.7, Hct 43.3, Plt Count 301 02/20/20 20:25: Sodium 134 L, Potassium 3.7, BUN 13, Creatinine 1.06, Glucose 95, Magnesium 2.0, Total Bilirubin 0.5, AST 43 H, ALT 36, Alkaline Phosphatase 57, Amylase 40, Lipase 79 <Cyrus Sauer - Last Filed: 02/21/20 14:13> Assessment and Plan - Plan Assessment Acute hypoxic respiratory failure secondary to COVID pneumonia Hypertension Hyperlipidemia Plan Acute hypoxic respiratory failure secondary to COVID pneumonia: Trended ferritin, CRP. Pulmonology consult in place. Continue with IV steroids, oral supplements. DVT prophylaxis with Lovenox 40 mg subcutaneous once daily. Daily room air saturations, respiratory therapy consult in place. Hypertension: Obtain and continue home medications. Hyperlipidemia: Obtain and continue home medications. Discharge Plan: Home Plan to discharge in: 72 Hours - Advance Directives Does patient have a Living Will: No Does patient have a Durable POA for Healthcare: No - Code Status/Comfort Care Code Status Assessed: Yes (Full code) Critical Care: No Time Spent Managing Pts Care (In Minutes): 55 <Jean Hebert - Last Filed: 02/20/20 23:21> - Plan Case discussed with SCUBA DIVING TEACHER. See note for details. <Cyrus Sauer - Last Filed: 02/21/20 14:13>
[2020-02-20] MEDS: HEPARIN 5000 UNIT/ML 1 ML VIAL SQ SCH (23:56)
[2020-02-20] MEDS: METHYLPREDNISOLONE 40 MG INJ IV SCH (23:56)
[2020-02-21 04:17] LABS: Absolute Lymphocytes (CBC) 0.4 K/uL (0.7-4.9); Basophils % 0.5 % (0-1.3); Hematocrit 43.2 % (39.6-49.0); Lymphocytes % 3.1 % (15.3-44.8); MPV 8.2 fL (7.6-11.3); RBC Red Blood Cell Count 4.51 M/uL (4.33-5.43)
[2020-02-21 04:44] LABS: Ferritin 835.5 ng/mL (26-388); Magnesium 2.4 mg/dL (1.8-2.4); Potassium 4.5 mmol/L (3.5-5.1)
[2020-02-21] MEDS: ZINC SULFATE 220 MG CAP PO SCH (08:35)
[2020-02-21] MEDS: VITAMIN D 1000 UNIT TAB PO SCH (08:35)
[2020-02-21] MEDS: ASPIRIN EC 81 MG TAB PO SCH (08:35)
--- NOTE | 2020-02-21 08:35 | RAD REPORT ---
EXAM DESCRIPTION: RAD - Chest Single View - 02/20/2020 9:24 pm CLINICAL HISTORY: DYSPNEA Chest pain. COMPARISON: Chest Single View dated 09/16/2018; Chest Pa And Lat (2 Views) dated 11/18/2016 FINDINGS: Portable technique limits examination quality. Moderately severe bilateral pulmonary opacities are noted, greater on the right, likely representing pneumonia. The heart is normal in size. No displaced fractures.
[2020-02-21] MEDS: ASCORBIC ACID 500 MG TABLET PO SCH ×3 (08:36→20:29)
[2020-02-21] MEDS: METHYLPREDNISOLONE 40 MG INJ IV SCH ×2 (08:36→16:16)
[2020-02-21] MEDS: HEPARIN 5000 UNIT/ML 1 ML VIAL SQ SCH (08:36)
[2020-02-21] MEDS: BENZONATATE 100 MG CAP PO PRN ×2 (11:01→20:29)
--- NOTE | 2020-02-21 13:34 | P.CNS ---
Date of Consult: 02/21/20 Reason for Consult: Respiratory failure from chong virus Chief Complaint: COVID pneumonia History of Present Illness: Patient is 54 years of age, hypertension hyperlipidemia admitted with shortness of breath he was just recently tested positive for chong virus see this discharged on oral steroids not improving admitted with low saturation Patient has bilateral pulmonary infiltrates consistent with the chong virus infection Allergies No Known Allergies Allergy (Verified 09/16/18 02:52) Home Medications: Losartan Potassium 100 mg PO DAILY 11/11/17 Lovastatin 20 mg PO BEDTIME 11/11/17 - Past Medical/Surgical History Diabetic: No -: HYPERTENSION -: HYPERLIPIDEMIA -: KNEE SURGERY (2017) Psychosocial/ Personal History: 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 - Family History Father Medical History: Hypertension Mother Notes: NO PMHX - Social History Alcohol use: No CD- Drugs: No Caffeine use: Yes Place of Residence: Home Review of Systems General: Weakness Respiratory: Cough, Shortness of Breath Physical Examination Temp Pulse Resp BP Pulse Ox 99.2 F 80 18 141/73 H 93 02/21/20 12:00 02/21/20 12:00 02/21/20 12:00 02/21/20 12:00 02/21/20 12:00 Laboratory Data (last 24 hrs) 02/20/20 20:25: PT 12.1, INR 1.03, APTT 29.1 02/20/20 20:25: WBC 13.6 H, Hgb 14.7, Hct 43.3, Plt Count 301 02/20/20 20:25: Sodium 134 L, Potassium 3.7, BUN 13, Creatinine 1.06, Glucose 95, Magnesium 2.0, Total Bilirubin 0.5, AST 43 H, ALT 36, Alkaline Phosphatase 57, Amylase 40, Lipase 79 - Problems (1) Acute respiratory failure due to severe acute respiratory syndrome coronavirus 2 (SARS-CoV-2) infection Current Visit: Yes Status: Acute Plan: Patient is 54 years of age admitted with respiratory failure from chong virus a 93% on 50% high-flow oxygen continue with steroids anticoagulation labs reviewed
--- NOTE | 2020-02-21 14:13 | P.PN ---
Subjective Date of Service: 02/21/20 Chief Complaint: COVID pneumonia Subjective: Other (Patient overall stable. Currently on high-flow oxygen) Physical Examination - Vital Signs Temperature: 99.2 F Blood Pressure: 141/73 Pulse: 80 Respirations: 18 Pulse Ox (%): 93 - Physical Exam General: Alert, In no apparent distress, Cooperative HEENT: Atraumatic Neck: Supple Respiratory: Other (Patient currently on high-flow oxygen) Cardiovascular: Normal pulses Neurological: Normal speech, Normal strength at 5/5 x4 extr, Normal affect - Studies Laboratory Data (last 24 hrs) 02/20/20 20:25: PT 12.1, INR 1.03, APTT 29.1 02/20/20 20:25: WBC 13.6 H, Hgb 14.7, Hct 43.3, Plt Count 301 02/20/20 20:25: Sodium 134 L, Potassium 3.7, BUN 13, Creatinine 1.06, Glucose 95, Magnesium 2.0, Total Bilirubin 0.5, AST 43 H, ALT 36, Alkaline Phosphatase 57, Amylase 40, Lipase 79 Medications List Reviewed: Yes Assessment & Plan Discharge Plan: Home Plan to discharge in: 48 Hours Physician Review Additional Text: Assessment Acute hypoxic respiratory failure secondary to COVID pneumonia Hypertension Hyperlipidemia Plan Acute hypoxic respiratory failure secondary to COVID pneumonia: Trend ferritin, CRP. Continue with IV steroids, oral supplements. DVT prophylaxis with Lovenox 40 mg subcutaneous once daily. Wean off high flow. Anticipate discharge with home oxygen in the next 48 hours Hypertension: Restart home medication. Hyperlipidemia: Restart home medication. Time Spent Managing Pts Care (In Minutes): 55
[2020-02-21] MEDS ORDERED: Remdesivir 200 MG in NA CHLORIDE 0.9% 250 ML IV ONE (14:30)
[2020-02-21] MEDS ORDERED: Levofloxacin500mg IV 500 MG/100 ML BAG IV SCH (15:00)
--- NOTE | 2020-02-21 19:25 | RAD REPORT ---
EXAM DESCRIPTION: CT chest angiography with intravenous contrast CLINICAL HISTORY: 54 years Male Congestion;Dyspnea;Cough. TECHNIQUE: Following the administration of intravenous contrast, multiple high-resolution axial imag es of the chest were performed followed by sagittal and coronal reconstructed images. Axial MIP image s were reconstructed. The CT study is performed according to ALARA (as low as reasonably achievable) or ALARA/IMAGE GENTLY, with automatic adjustment of mA and/or kV according to patient size. Performed on: 02/20/2020 at 10:32 PM COMPARISON: None FINDINGS: There is satisfactory visualization and contrast opacification of pulmonary arteries. No definite intra-arterial filling defects are identified to suggest acute or chronic pulmonary embolis m. The thoracic aorta is normal in caliber and contour without evidence of aneurysm or dissection. The lungs are well expanded. There are diffuse, patchy dense groundglass opacities bilaterally most c onsistent with multifocal pneumonia. There are no pleural effusions. There is no pneumothorax. The ce ntral airways are patent. The heart is normal in size. There is no pericardial effusion. There is minimal reflux of contrast in to the hepatic veins.The RV/LV ratio is within normal limits. There is no evidence of hilar, mediastinal or axillary lymphadenopathy. No acute osseous abnormality is identified. There is mild degenerative spurring along the thoracic sp ine. The visualized upper abdominal structures are unremarkable. IMPRESSION: 1. No CT evidence to suggest acute or chronic pulmonary embolism, aortic aneurysm or aor tic dissection. 2. Diffuse, patchy, dense groundglass opacities bilaterally most consistent with multifocal pneumonia . Electronically signed by: Dior Guidry DO 02/20/2020 11:25 PM PAINT BOOTH OPERATOR Due to temporary technical issues with the PACS/Fluency reporting system, reports are being signed by the in house radiologists without review as a courtesy to insure prompt reporting. The interpreting radiologist is fully responsible for the content of the report.
[2020-02-21] MEDS: ATORVASTATIN 10 MG TAB PO SCH (20:29)
[2020-02-21] MEDS: APIXABAN 5 MG TABLET PO SCH (20:29)
[2020-02-21] MEDS ORDERED: HOME MED 1 EA UNK (Lovastatin [Lovastatin] 20 MG Tablet) PO SCH (21:00)
[2020-02-22] MEDS: METHYLPREDNISOLONE 40 MG INJ IV SCH ×3 (00:14→18:00)
[2020-02-22 01:42] LABS: Urine Appearance CLEAR; Urine Bilirubin NEGATIVE (NEG); Urine Blood NEGATIVE (NEG); Urine Color YELLOW; Urine Glucose NEGATIVE (NEG); Urine Protein NEGATIVE (NEG); Urine Specific Gravity <=1.005 (1.005-1.030); Urine Urobilinogen 0.2 mg/dL (0.2-1.0)
[2020-02-22 01:49] LABS: Urine Microscopic Reflex NO UMIC
[2020-02-22 07:08] LABS: Absolute Lymphocytes (CBC) 0.5 K/uL (0.7-4.9); Basophils % 0.4 % (0-1.3); Hematocrit 44.3 % (39.6-49.0); Lymphocytes % 3.8 % (15.3-44.8); MPV 8.1 fL (7.6-11.3); RBC Red Blood Cell Count 4.65 M/uL (4.33-5.43)
[2020-02-22 07:25] LABS: ALT/SGPT 56 U/L (12-78); AST/SGOT 51 U/L (15-37); Albumin 2.5 g/dL (3.4-5.0); Alkaline Phosphatase 54 U/L (45-117); BUN Blood Urea Nitrogen 16 mg/dL (7-18); Bicarbonate 26 mmol/L (21-32); Bilirubin Direct < 0.1 mg/dL (0-0.2); Bilirubin Total 0.3 mg/dL (0.2-1.0); Ferritin 1642.7 ng/mL (26-388); Glucose Level 137 mg/dL (74-106); Magnesium 2.4 mg/dL (1.8-2.4); Potassium 3.9 mmol/L (3.5-5.1); Protein, Total 7.1 g/dL (6.4-8.2); Sodium Level 139 mmol/L (136-145)
[2020-02-22] MEDS ORDERED: ALPRAZOLAM 0.25 MG TABLET PO PRN (07:45)
--- NOTE | 2020-02-22 09:00 | RAD REPORT ---
EXAM DESCRIPTION: RAD - Chest Single View - 02/22/2020 6:37 am CLINICAL HISTORY: follow up COVID and pneumonia Chest pain. COMPARISON: Chest Single View dated 02/20/2020; Chest Single View dated 09/16/2018; Chest Pa And Lat (2 Views) dated 11/18/2016 FINDINGS: Portable technique limits examination quality. Since 02/20/2020, slight progression is seen in moderate bilateral pulmonary opacities, greater on th e right. The heart is normal in size. No displaced fractures. IMPRESSION: Mild worsening in right lung aeration since comparative study.
[2020-02-22] MEDS: ASPIRIN EC 81 MG TAB PO SCH (09:53)
[2020-02-22] MEDS: Remdesivir 100 MG in NA CHLORIDE 0.9% 250 ML IV SCH (09:53)
[2020-02-22] MEDS: ASCORBIC ACID 500 MG TABLET PO SCH ×3 (09:53→22:42)
[2020-02-22] MEDS: VITAMIN D 1000 UNIT TAB PO SCH (09:53)
[2020-02-22] MEDS: ZINC SULFATE 220 MG CAP PO SCH (09:54)
[2020-02-22] MEDS: APIXABAN 5 MG TABLET PO SCH ×2 (09:54→22:41)
[2020-02-22] MEDS: LOSARTAN POTASSIUM 50 MG TABLET PO SCH (09:55)
[2020-02-22] MEDS ORDERED: POTASSIUM CL SA 10 MEQ TAB PO ONE (10:00)
--- NOTE | 2020-02-22 11:34 | P.PN ---
Subjective Date of Service: 02/22/20 Chief Complaint: COVID pneumonia Subjective: Other (slowing improving.) Physical Examination - Vital Signs Temperature: 98.3 F Blood Pressure: 144/83 Pulse: 80 Respirations: 32 Pulse Ox (%): 94 - Physical Exam General: Alert, In no apparent distress, Cooperative HEENT: Atraumatic Neck: Supple Respiratory: Other Cardiovascular: Normal pulses Neurological: Normal speech, Normal strength at 5/5 x4 extr, Normal tone - Studies Medications List Reviewed: Yes Assessment & Plan Discharge Plan: Home Plan to discharge in: 72 Hours Physician Review Additional Text: Assessment Acute hypoxic respiratory failure secondary to COVID pneumonia Hypertension Hyperlipidemia Plan Acute hypoxic respiratory failure secondary to COVID pneumonia: Levaquin added yesterday. X-ray reviewed. Slow improvement noted. Respiratory has decreased High flow to 50%. Continue to trend ferritin CRP. Continue IV steroids and supplements. Discussed the possibility of Remdesivir for the patient. Information provided the patient. If agrees then will initiate. Continue DVT prophylaxis. Will monitor closely. Case discussed with pulmonology. Chrissy allen improvement over the next 48-72 hr. Hypertension: Continue home medication. Hyperlipidemia: Continue home medication. Time Spent Managing Pts Care (In Minutes): 55
--- NOTE | 2020-02-22 11:40 | P.PN ---
Subjective Date of Service: 02/22/20 Chief Complaint: COVID pneumonia Subjective: Improving (Patient is improving subjectively feeling better) Review of Systems Respiratory: Shortness of Breath Physical Examination - Vital Signs Temperature: 98.3 F Blood Pressure: 144/83 Pulse: 80 Respirations: 32 Pulse Ox (%): 94 - Studies Medications List Reviewed: Yes Assessment & Plan - Problems (Diagnosis) (1) Acute respiratory failure due to severe acute respiratory syndrome coronavirus 2 (SARS-CoV-2) infection Current Visit: Yes Status: Acute Plan: Patient is improving agree with Remdesmir. He has hyper ferritinemia continue with present doses of steroid his white count is minimally elevated can Dc antibiotics for now vital signs stable is currently on FiO2 of 60% for fully can wean him down to 4 L by tube are and discharge on prednisone consider full anticoagulation spironolactone to maintain an slight negative fluid balanceAW Remdesmir
[2020-02-22] MEDS ORDERED: MELATONIN 5 MG TABLET PO SCH (11:45)
[2020-02-22] MEDS: SPIRONOLACTONE 25 MG TABLET PO SCH (13:03)
[2020-02-22] MEDS: ATORVASTATIN 10 MG TAB PO SCH (22:40)
[2020-02-22] MEDS: FAMOTIDINE 20 MG TAB PO SCH (22:40)
[2020-02-23 04:40] LABS: Absolute Lymphocytes (CBC) 0.4 K/uL (0.7-4.9); Basophils % 0.2 % (0-1.3); Hematocrit 44.9 % (39.6-49.0); Lymphocytes % 3.1 % (15.3-44.8); MPV 8.2 fL (7.6-11.3)
[2020-02-23] MEDS: METHYLPREDNISOLONE 40 MG INJ IV SCH ×3 (04:44→17:49)
[2020-02-23 05:10] LABS: ALT/SGPT 63 U/L (12-78); AST/SGOT 37 U/L (15-37); Albumin 2.5 g/dL (3.4-5.0); Alkaline Phosphatase 56 U/L (45-117); BUN Blood Urea Nitrogen 19 mg/dL (7-18); Bicarbonate 27 mmol/L (21-32); Bilirubin Direct < 0.1 mg/dL (0-0.2); Bilirubin Total 0.4 mg/dL (0.2-1.0); Ferritin 1447.8 ng/mL (26-388); Glucose Level 127 mg/dL (74-106); Potassium 4.3 mmol/L (3.5-5.1); Protein, Total 6.9 g/dL (6.4-8.2); Sodium Level 140 mmol/L (136-145)
--- NOTE | 2020-02-23 10:18 | P.PN ---
Subjective Date of Service: 02/23/20 Chief Complaint: COVID pneumonia Subjective: Improving Physical Examination - Vital Signs Temperature: 97.8 F Blood Pressure: 129/78 Pulse: 65 Respirations: 32 Pulse Ox (%): 91 - Physical Exam General: Alert, In no apparent distress, Oriented x3, Cooperative HEENT: Atraumatic Neck: Supple Respiratory: Other (No respiratory distress noted, patient on high-flow but at 30 percent Fi02) Cardiovascular: Normal pulses Gastrointestinal: No guarding Neurological: Normal speech, Normal strength at 5/5 x4 extr, Normal tone, Normal affect - Studies Medications List Reviewed: Yes Assessment & Plan Discharge Plan: Home Plan to discharge in: 48 Hours Physician Review Additional Text: Assessment Acute hypoxic respiratory failure secondary to COVID pneumonia Hypertension Hyperlipidemia Plan Acute hypoxic respiratory failure secondary to COVID pneumonia: Patient continues to improve. Patient on high-flow at 30%. Will have respiratory wean to nasal cannula. Remdesivir started yesterday. Continue monitor closely. Inflammatory markers improved. Pulmonology discontinued Levaquin as this is likely viral related. Continue to wean off oxygen. Continue to monitor. Encourage incentive spirometer. Encourage ambulation. Anticipate improvement over the next 48 hr. Hypertension: Continue home medication. Hyperlipidemia: Continue home medication. Time Spent Managing Pts Care (In Minutes): 55
[2020-02-23] MEDS: Remdesivir 100 MG in NA CHLORIDE 0.9% 250 ML IV SCH (10:57)
[2020-02-23] MEDS: ASCORBIC ACID 500 MG TABLET PO SCH ×3 (10:58→23:07)
[2020-02-23] MEDS: SPIRONOLACTONE 25 MG TABLET PO SCH (10:58)
[2020-02-23] MEDS: APIXABAN 5 MG TABLET PO SCH ×2 (10:58→23:04)
[2020-02-23] MEDS: LOSARTAN POTASSIUM 50 MG TABLET PO SCH (10:59)
[2020-02-23] MEDS: FAMOTIDINE 20 MG TAB PO SCH ×2 (10:59→23:07)
[2020-02-23] MEDS: ASPIRIN EC 81 MG TAB PO SCH (10:59)
[2020-02-23] MEDS: VITAMIN D 1000 UNIT TAB PO SCH (10:59)
[2020-02-23] MEDS: ZINC SULFATE 220 MG CAP PO SCH (10:59)
[2020-02-23] MEDS: BENZONATATE 100 MG CAP PO PRN ×2 (11:07→17:56)
[2020-02-23] MEDS: ATORVASTATIN 10 MG TAB PO SCH (23:04)
[2020-02-24] MEDS: METHYLPREDNISOLONE 40 MG INJ IV SCH ×3 (02:16→17:23)
[2020-02-24 05:02] LABS: Absolute Lymphocytes (CBC) 0.4 K/uL (0.7-4.9); Basophils % 0.4 % (0-1.3); Lymphocytes % 2.5 % (15.3-44.8)
[2020-02-24 05:58] LABS: Albumin 2.4 g/dL (3.4-5.0); Bilirubin Direct 0.1 mg/dL (0-0.2); Bilirubin Total 0.5 mg/dL (0.2-1.0); Ferritin 970.3 ng/mL (26-388); Potassium 4.6 mmol/L (3.5-5.1); Protein, Total 6.3 g/dL (6.4-8.2)
[2020-02-24 07:28] LABS: Blood Morphology Comment NOT SEEN (NOT SEEN); Platelet Estimate ADEQ
[2020-02-24] MEDS: SPIRONOLACTONE 25 MG TABLET PO SCH (09:59)
[2020-02-24] MEDS: LOSARTAN POTASSIUM 50 MG TABLET PO SCH (09:59)
[2020-02-24] MEDS: ASPIRIN EC 81 MG TAB PO SCH (09:59)
[2020-02-24] MEDS: FAMOTIDINE 20 MG TAB PO SCH ×2 (09:59→22:20)
[2020-02-24] MEDS: ASCORBIC ACID 500 MG TABLET PO SCH ×3 (10:00→22:19)
[2020-02-24] MEDS: VITAMIN D 1000 UNIT TAB PO SCH (10:00)
[2020-02-24] MEDS: ZINC SULFATE 220 MG CAP PO SCH (10:00)
[2020-02-24] MEDS: APIXABAN 5 MG TABLET PO SCH ×2 (10:00→22:19)
[2020-02-24] MEDS: Remdesivir 100 MG in NA CHLORIDE 0.9% 250 ML IV SCH (10:01)
--- NOTE | 2020-02-24 11:50 | RAD REPORT ---
EXAM DESCRIPTION: RAD - Chest Single View - 02/24/2020 7:20 am CLINICAL HISTORY: follow up COVID Chest pain. COMPARISON: Chest Single View dated 02/22/2020; Chest Single View dated 02/20/2020; Chest Single View da macey 09/16/2018; Chest Pa And Lat (2 Views) dated 11/18/2016 FINDINGS: Portable technique limits examination quality. Moderate bilateral pulmonary opacities are noted, slightly improved on the right since comparative st [facility]. The heart is moderately enlarged. No displaced fractures. IMPRESSION: Mild improvement in lung aeration is seen since comparative study.
--- NOTE | 2020-02-24 12:35 | P.PN ---
Subjective Date of Service: 02/24/20 Chief Complaint: COVID pneumonia Subjective: Improving, Doing well Physical Examination - Vital Signs Temperature: 97.7 F Blood Pressure: 123/73 Pulse: 71 Respirations: 26 Pulse Ox (%): 92 - Physical Exam General: Alert HEENT: Atraumatic Neck: Supple Respiratory: Other (On 5.5 L per nasal cannula. Patient feels improved. No significant distress noted) Cardiovascular: Normal pulses Neurological: Normal speech, Normal strength at 5/5 x4 extr, Normal tone, Normal affect - Studies Medications List Reviewed: Yes Assessment & Plan Discharge Plan: Home Plan to discharge in: 24 Hours Physician Review Additional Text: Assessment Acute hypoxic respiratory failure secondary to COVID pneumonia Hypertension Hyperlipidemia Plan Acute hypoxic respiratory failure secondary to COVID pneumonia: Patient improving. Patient currently on 5.5 L per nasal cannula. Will ambulate in [place] how he does with ambulation. Continue Remdesivir. If ambulating well and less than 4 L will consider discharge as early as today. Will reassess later today. Continue incentive spirometer and ambulation. Anticipate discharge as early as today or tomorrow. I will turn the service over to the hospitalist team tomorrow. I will go plan of care with him. Hypertension: Continue home medication. Hyperlipidemia: Continue home medication. Time Spent Managing Pts Care (In Minutes): 55
--- NOTE | 2020-02-24 12:51 | P.PN ---
Subjective Date of Service: 02/24/20 Chief Complaint: COVID pneumonia Subjective: Improving (Patient is doing better her oxygen requirements are improving no new complaint) Review of Systems General: Weakness Respiratory: Shortness of Breath Physical Examination - Vital Signs Temperature: 97.7 F Blood Pressure: 123/73 Pulse: 71 Respirations: 26 Pulse Ox (%): 92 - Studies Medications List Reviewed: Yes Assessment & Plan - Problems (Diagnosis) (1) Acute respiratory failure due to severe acute respiratory syndrome coronavirus 2 (SARS-CoV-2) infection Status: Acute Plan: Patient is clinically improving possible discharge on home O2 tomorrow chemistries reviewed white count is mildly elevated continue with steroids sat is 93% phone 4.5 L of nasal cannula oxygen
[2020-02-24] MEDS: ATORVASTATIN 10 MG TAB PO SCH (22:19)
[2020-02-25] MEDS: METHYLPREDNISOLONE 40 MG INJ IV SCH ×2 (00:43→09:00)
[2020-02-25 03:30] VITALS: BMI 26.2
[2020-02-25 03:58] LABS: Absolute Lymphocytes (CBC) 0.5 K/uL (0.7-4.9); Hematocrit 44.2 % (39.6-49.0); Lymphocytes % 3.1 % (15.3-44.8); MPV 7.9 fL (7.6-11.3); RBC Red Blood Cell Count 4.64 M/uL (4.33-5.43)
[2020-02-25 04:22] LABS: ALT/SGPT 58 U/L (12-78); AST/SGOT 28 U/L (15-37); Albumin 2.5 g/dL (3.4-5.0); Alkaline Phosphatase 50 U/L (45-117); BUN Blood Urea Nitrogen 21 mg/dL (7-18); Bicarbonate 27 mmol/L (21-32); Bilirubin Direct < 0.1 mg/dL (0-0.2); Bilirubin Total 0.4 mg/dL (0.2-1.0); Glucose Level 133 mg/dL (74-106); Potassium 4.8 mmol/L (3.5-5.1); Protein, Total 6.3 g/dL (6.4-8.2); Sodium Level 138 mmol/L (136-145)
[2020-02-25] MEDS: ASCORBIC ACID 500 MG TABLET PO SCH ×3 (10:00→21:40)
[2020-02-25] MEDS: VITAMIN D 1000 UNIT TAB PO SCH (10:00)
[2020-02-25] MEDS: LOSARTAN POTASSIUM 50 MG TABLET PO SCH (10:00)
[2020-02-25] MEDS: ZINC SULFATE 220 MG CAP PO SCH (10:00)
[2020-02-25] MEDS: ASPIRIN EC 81 MG TAB PO SCH (10:00)
[2020-02-25] MEDS: FAMOTIDINE 20 MG TAB PO SCH ×2 (10:00→21:40)
[2020-02-25] MEDS: METHYLPREDNISOLONE 125 MG INJ IV SCH ×2 (10:01→17:34)
[2020-02-25] MEDS: SPIRONOLACTONE 25 MG TABLET PO SCH (10:02)
[2020-02-25] MEDS: APIXABAN 5 MG TABLET PO SCH ×2 (10:02→21:40)
[2020-02-25] MEDS: Remdesivir 100 MG in NA CHLORIDE 0.9% 250 ML IV SCH (14:36)
[2020-02-25] MEDS: ATORVASTATIN 10 MG TAB PO SCH (21:40)
[2020-02-26] MEDS: METHYLPREDNISOLONE 125 MG INJ IV SCH ×2 (01:55→08:15)
[2020-02-26 03:58] LABS: Absolute Lymphocytes (CBC) 0.4 K/uL (0.7-4.9); Basophils % 0.2 % (0-1.3); MPV 8.1 fL (7.6-11.3); RBC Red Blood Cell Count 4.78 M/uL (4.33-5.43)
[2020-02-26 04:09] LABS: BUN Blood Urea Nitrogen 21 mg/dL (7-18); Bicarbonate 27 mmol/L (21-32); Ferritin 787.2 ng/mL (26-388); Glucose Level 118 mg/dL (74-106); Magnesium 2.6 mg/dL (1.8-2.4); Phosphorus 3.7 mg/dL (2.5-4.9); Potassium 4.7 mmol/L (3.5-5.1); Sodium Level 137 mmol/L (136-145)
[2020-02-26 05:26] LABS: Blood Morphology Comment NOT SEEN (NOT SEEN); Platelet Estimate ADEQ
[2020-02-26] MEDS: SPIRONOLACTONE 25 MG TABLET PO SCH (08:14)
[2020-02-26] MEDS: ASPIRIN EC 81 MG TAB PO SCH (08:14)
[2020-02-26] MEDS: FAMOTIDINE 20 MG TAB PO SCH ×2 (08:14→20:41)
[2020-02-26] MEDS: LOSARTAN POTASSIUM 50 MG TABLET PO SCH (08:14)
[2020-02-26] MEDS: APIXABAN 5 MG TABLET PO SCH ×2 (08:14→20:42)
[2020-02-26] MEDS: ASCORBIC ACID 500 MG TABLET PO SCH ×3 (08:15→20:44)
[2020-02-26] MEDS: ZINC SULFATE 220 MG CAP PO SCH (08:15)
[2020-02-26] MEDS: VITAMIN D 1000 UNIT TAB PO SCH (08:15)
--- NOTE | 2020-02-26 10:02 | P.PN ---
Subjective Date of Service: 02/25/20 Patient is looking really good. His major concern is that he lives in a trailer and there is not a lot a heat there. He is worried that if he least 2 quickly he will end up getting worse. He still on 4 L of oxygen but he is maintaining sats of 95%. Continue to monitor him over the next 24-48 hr. He is very close to going home. Review of Systems 10-point ROS is otherwise unremarkable Physical Examination - Vital Signs Temperature: 97.7 F Blood Pressure: 128/79 Pulse: 76 Respirations: 17 Pulse Ox (%): 96 - Physical Exam General: Alert, In no apparent distress, Oriented x3 Respiratory: Clear to auscultation bilaterally, Normal air movement Cardiovascular: Regular rate/rhythm, Normal S1 S2, No murmurs Gastrointestinal: Normal bowel sounds, Soft and benign, Non-distended, No tenderness Musculoskeletal: No clubbing, No swelling, No tenderness Neurological: Sensation intact, Cranial nerves 3-12 intact - Studies Microbiology Data (last 24 hrs): 02/20/20 20:10 Blood - Blood Aerobic Blood Culture - Final No growth in 5 days. 02/20/20 20:10 Blood - Blood Anaerobic Blood Culture - Final No growth in 5 days. 02/20/20 20:25 Blood - Blood Aerobic Blood Culture - Final No growth in 5 days. 02/20/20 20:25 Blood - Blood Anaerobic Blood Culture - Final No growth in 5 days. Medications List Reviewed: Yes Assessment & Plan - Problems (Diagnosis) (1) Acute respiratory failure due to severe acute respiratory syndrome coronavirus 2 (SARS-CoV-2) infection Current Visit: Yes Status: Acute (2) Hyperlipidemia Current Visit: No Status: Chronic Qualifiers: Hyperlipidemia type: mixed hyperlipidemia Qualified Code(s): E78.2 - Mixed hyperlipidemia (3) Hypertension Current Visit: No Status: Chronic Qualifiers: Hypertension type: essential hypertension Qualified Code(s): I10 - Essential (primary) hypertension (4) Obesity (BMI 30-39.9) Current Visit: No Status: Chronic - Plan 1. Continue with IV antibiotics 2. Continue with albuterol inhaler therapy; IV steroids; zinc and vitamin-C 3. O2 per protocol 4. Repeat labs including D-dimer, ferritin, and CRP and LFTs 5. GI and DVT prophylaxis Discharge Plan: Home Plan to discharge in: 48 Hours - Advance Directives Does patient have a Living Will: No Does patient have a Durable POA for Healthcare: No - Code Status/Comfort Care Code Status Assessed: Yes Code Status: Full Code Critical Care: No Time Spent Managing PTS Care (In Minutes): 35
--- NOTE | 2020-02-26 11:56 | P.PN ---
Subjective Date of Service: 02/26/20 Chief Complaint: COVID pneumonia Subjective: Improving (Patient is doing better ray on 4 L of nasal cannula oxygen) Review of Systems General: Weakness Respiratory: Shortness of Breath Physical Examination - Vital Signs Temperature: 97.7 F Blood Pressure: 128/79 Pulse: 76 Respirations: 17 Pulse Ox (%): 96 - Studies Microbiology Data (last 24 hrs): 02/20/20 20:10 Blood - Blood Aerobic Blood Culture - Final No growth in 5 days. 02/20/20 20:10 Blood - Blood Anaerobic Blood Culture - Final No growth in 5 days. 02/20/20 20:25 Blood - Blood Aerobic Blood Culture - Final No growth in 5 days. 02/20/20 20:25 Blood - Blood Anaerobic Blood Culture - Final No growth in 5 days. Medications List Reviewed: Yes Assessment & Plan - Problems (Diagnosis) (1) Acute respiratory failure due to severe acute respiratory syndrome coronavirus 2 (SARS-CoV-2) infection Current Visit: Yes Status: Acute Plan: Clinically improving plan for discharge on home oxygen patient's ferritin level is a declining change to prednisone p.o. Dc IV Solu-Medrol
[2020-02-26 16:39] VITALS: O2SAT 93
[2020-02-26] MEDS: predniSONE 20 MG TAB PO SCH (20:42)
[2020-02-26] MEDS: ATORVASTATIN 10 MG TAB PO SCH (20:44)
[2020-02-27 04:50] LABS: C-Reactive Protein 9.02 mg/L (<3.00)
[2020-02-27 04:51] LABS: Ferritin 752.2 ng/mL (26-388)
[2020-02-27] MEDS: ASCORBIC ACID 500 MG TABLET PO SCH ×2 (08:04→13:14)
[2020-02-27] MEDS: LOSARTAN POTASSIUM 50 MG TABLET PO SCH (08:05)
[2020-02-27] MEDS: ASPIRIN EC 81 MG TAB PO SCH (08:05)
[2020-02-27] MEDS: predniSONE 20 MG TAB PO SCH (08:05)
[2020-02-27] MEDS: VITAMIN D 1000 UNIT TAB PO SCH (08:05)
[2020-02-27] MEDS: FAMOTIDINE 20 MG TAB PO SCH (08:06)
[2020-02-27] MEDS: ZINC SULFATE 220 MG CAP PO SCH (08:21)
[2020-02-27] MEDS: SPIRONOLACTONE 25 MG TABLET PO SCH (08:21)
[2020-02-27] MEDS: APIXABAN 5 MG TABLET PO SCH (08:30)
[2020-02-27] MEDS ORDERED: APIXABAN 5 MG TABLET ONE (08:43)
--- NOTE | 2020-02-27 15:38 | P.PN ---
Subjective Date of Service: 02/26/20 Patient looking well. Arranging for home oxygen. Anticipate discharge home in the morning. Review of Systems 10-point ROS is otherwise unremarkable Physical Examination - Vital Signs Temperature: 97.6 F Blood Pressure: 96/52 Pulse: 65 Respirations: 20 Pulse Ox (%): 96 - Physical Exam General: Alert, In no apparent distress, Oriented x3 Respiratory: Diminished, Expiratory wheezes Cardiovascular: Regular rate/rhythm, Normal S1 S2, No murmurs Gastrointestinal: Normal bowel sounds, Soft and benign, Non-distended, No tenderness Musculoskeletal: No tenderness Integumentary: No rashes Neurological: Normal speech, Normal tone, Normal affect Lymphatics: No axilla or inguinal lymphadenopathy - Studies Medications List Reviewed: Yes Assessment & Plan - Problems (Diagnosis) (1) Acute respiratory failure due to severe acute respiratory syndrome coronavirus 2 (SARS-CoV-2) infection Current Visit: Yes Status: Acute (2) Hyperlipidemia Current Visit: No Status: Chronic Qualifiers: Hyperlipidemia type: mixed hyperlipidemia Qualified Code(s): E78.2 - Mixed hyperlipidemia (3) Hypertension Current Visit: No Status: Chronic Qualifiers: Hypertension type: essential hypertension Qualified Code(s): I10 - Essential (primary) hypertension (4) Obesity (BMI 30-39.9) Current Visit: No Status: Chronic - Plan Continue with plan of care as mentioned below 1. Continue with supportive care along with home oxygen and cough suppressant and inhaler therapy 2. Continue with albuterol inhaler therapy; continue vitamins and oral steroids 3. O2 per protocol 4. Inflammatory markers stable 5. GI and DVT prophylaxis Discharge Plan: Home Plan to discharge in: Greater than 2 days - Advance Directives Does patient have a Living Will: No Does patient have a Durable POA for Healthcare: No - Code Status/Comfort Care Code Status: Full Code Critical Care: No Time Spent Managing PTS Care (In Minutes): 25
--- NOTE | 2020-02-27 15:55 | P.DS ---
Discharge Date: 02/27/20 Disposition: ROUTINE DISCHARGE Discharge Condition: GOOD Reason for Admission: COVID pneumonia Consultations: Pulmonary - Problems (1) Acute respiratory failure due to severe acute respiratory syndrome coron avirus 2 (SARS-CoV-2) infection Status: Acute (2) Hyperlipidemia Status: Chronic Qualifiers: Hyperlipidemia type: mixed hyperlipidemia Qualified Code(s): E78.2 - Mixed hyperlipidemia (3) Hypertension Status: Chronic Qualifiers: Hypertension type: essential hypertension Qualified Code(s): I10 - Essential (primary) hypertension (4) Obesity (BMI 30-39.9) Status: Chronic Brief History of Present Illness: Patient is a 54-year-old male with history of hypertension, hyperlipidemia presented to the emergency department for shortness of breath. Patient reports testing positive for COVID on 02/13 but having symptoms as early as 5 days prior to this. Patient was on oral steroids at home, not improving. Patient was 88% on room air initial CRP 217 ferritin 787. Chest x-ray of ground-glass opacities bilaterally ED provider wishes to admit patient for further evaluation and management. When I saw the patient he was on high-flow oxygen saturating in the 90s. Does not appear septic, will be admitted for further evaluation and management. Hospital Course: Patient has done well during hospital stay. We went ahead and arranged for home oxygen. At this time, patient is stable for discharge home. Vital Signs/Physical Exam: Temp Pulse Resp BP Pulse Ox 97.6 F 65 20 96/52 L 96 02/27/20 15:38 02/27/20 15:38 02/27/20 15:38 02/27/20 15:38 02/27/20 15:38 General: Alert, In no apparent distress, Oriented x3 Laboratory Data at Discharge: WBC 20.1 K/uL (4.3-10.9) H* D 02/26/20 03:15 Hgb 15.1 g/dL (13.6-17.9) 02/26/20 03:15 Hct 46.0 % (39.6-49.0) 02/26/20 03:15 Plt Count 430 K/uL (152-406) H 02/26/20 03:15 PT 12.1 SECONDS (9.5-12.5) 02/20/20 20:25 INR 1.03 02/20/20 20:25 APTT 29.1 SECONDS (24.3-36.9) 02/20/20 20:25 Sodium 137 mmol/L (136-145) 02/26/20 03:15 Potassium 4.7 mmol/L (3.5-5.1) 02/26/20 03:15 BUN 21 mg/dL (7-18) H 02/26/20 03:15 Creatinine 0.87 mg/dL (0.55-1.3) 02/26/20 03:15 Glucose 118 mg/dL (74-106) H 02/26/20 03:15 Phosphorus 3.7 mg/dL (2.5-4.9) 02/26/20 03:15 Magnesium 2.6 mg/dL (1.8-2.4) H 02/26/20 03:15 Total Bilirubin 0.4 mg/dL (0.2-1.0) 02/25/20 03:25 AST 28 U/L (15-37) 02/25/20 03:25 ALT 58 U/L (12-78) 02/25/20 03:25 Alkaline Phosphatase 50 U/L (45-117) 02/25/20 03:25 Amylase 40 U/L (25-115) 02/20/20 20:25 Lipase 79 U/L (73-393) 02/20/20 20:25 Home Medications: Losartan Potassium 100 mg PO DAILY 11/11/17 Lovastatin 20 mg PO BEDTIME 11/11/17 Albuterol Inhaler [Ventolin Inhaler*] 2 puff IH Q6H PRN #1 hfa.aer.ad 02/27/20 Atorvastatin Calcium [Lipitor*] 10 mg PO BEDTIME #30 tab 02/27/20 Benzonatate [Tessalon Perle*] 200 mg PO TID PRN #30 cap 02/27/20 Melatonin 5 mg PO BEDTIME PRN #10 tablet 02/27/20 Spironolactone [Aldactone*] 25 mg PO DAILY #20 tab 02/27/20 predniSONE [Prednisone*] 20 mg PO BID #14 tab 02/27/20 New Medications: Spironolactone [Aldactone*] 25 mg PO DAILY #20 tab Atorvastatin Calcium [Lipitor*] 10 mg PO BEDTIME #30 tab Melatonin 5 mg PO BEDTIME PRN #10 tablet predniSONE [Prednisone*] 20 mg PO BID #14 tab Benzonatate [Tessalon Perle*] 200 mg PO TID PRN #30 cap PRN Reason: Cough Albuterol Inhaler [Ventolin Inhaler*] 2 puff IH Q6H PRN #1 hfa.aer.ad PRN Reason: Shortness Of Breath Patient Discharge Instructions: OK TO DC IV AND DC HOME. FOLLOW-UP WITH PRIMARY CARE PROVIDER IN 1-2 WEEKS. FOLLOW-UP WITH Pulmonary IN 1-2 WEEKS. RETURN TO THE ER IF symptoms worsen. CALL or TEXT DR. STUBBS AT [phone] IF ANY QUESTIONS REGARDING HOSPITAL STAY. PLEASE CALL THE FLOOR AT [phone] IF ANY MEDICATION OR NURSING QUESTIONS. Diet: AHA Activity: Fall precautions Followup: Mani Hilton MD [ACTIVE - CAN ADMIT] - 1-2 Weeks (Follow up in office in 1-2 weeks. Call to schedule an appointment. ) Time spent managing pt's care (in minutes): 35
[2020-03-06 21:48] VITALS: BP 123/73; TEMP 97.7
== END 2020-02-27 16:48 | disposition home or self-care (01) | DRG 177 ==
LOC: ER 20:19 → ERHOLD 22:29 → 4TH 23:16
PROVIDERS: ADMIT Family Medicine; ATTEND Hospitalist
PROC: XW033E5 Introduction of Remdesivir Anti-infective into Peripheral Vein, Percutaneous Approach, New Technology Group 5 (ICD-10-PCS; principal; 2020-02-22)
DX: U07.1 COVID-19 (principal); J12.82 Pneumonia due to coronavirus disease 2019; J80 Acute respiratory distress syndrome; I10 Essential (primary) hypertension; E78.5 Hyperlipidemia, unspecified; E66.9 Obesity, unspecified; Z68.30 Body mass index [BMI] 30.0-30.9, adult; Z79.52 Long term (current) use of systemic steroids; Z79.899 Other long term (current) drug therapy
CPT/HCPCS: 36415; 71045; 71275; 80048; 80053; 80076; 81003; 81015; 82150; 82550; 82553; 82728; 82947; 83605; 83690; 83735; 83880; 84100; 84132; 84145; 84484; 85025; 85610; 85730; 86140; 87040; 93005; 94002; 94003; 94010; 99285; J0456; J0696; J1100; J1644; J2920; J2930; J7030; J7050; J7512; Q9967

== ENCOUNTER 2022-07-11 17:29 | Emergency (ER) | payer OTHER ==
--- OUTSIDE RECORDS SUMMARY | 2022-07-11 17:32 | XMS REPORT | Continuity of Care Document ---
:1965 Author Organization [facility] t Address [address] [facility] [address] [place] [address] Care Team Providers Name Role Phone Delicia Vickers MD, Antonio Ta Primary Care Physician [phone] Surya Canales Attending Clinician [phone] MARCO A MONROY Attending Clinician Unavailable Marco A Monroy MD Attending Clinician WINSTON ROBLES Attending Clinician Unavailable Ricky Velasquez MD Attending Clinician NINFA GOULD Attending Clinician Unavailable RICKY VELASQUEZ Attending Clinician Unavailable NINFA GOULD Admitting Clinician Unavailable RICKY VELASQUEZ Admitting Clinician Unavailable Payers Payer Name Policy Type Policy Number Effective Date Expiration Date [facility] [id number] 2015 CHOICE 00:00:00 Problems Condition Condition Condition Status Onset Resolution Last Treating Co mments Source Name Details Category Date Date Treatment Clinician Date Essential Essential Disease Active 2016-[address] [facility] [address] hypertensi hypertensi 0-20 Estrellita kes on on 00:00: Medical 00 Center Odynophagi Odynophagi Disease Active 2016-[address] [facility] Bilateral Bilateral Disease Active 2016-[address] [facility] primary primary 0-11 [facility] osteoarthr osteoarthr 00:00: Me dical itis of itis of 00 Center knee knee HTN, goal HTN, goal Problem Active Com mon below below Spirit 140/90 140/90 - [facility] Mixed Mixed Problem Active Common hyperlipid hyperlipid Sp yesi emia emia - [facility] Hepatitis 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 - CH I without without St hepatic hepatic [facility] coma, coma, Medical unspecifie unspecifie Ce nter d d chronicity chronicity Allergies, Adverse Reactions, Alerts Allergy Allergy Status Severity Reaction(s) Onset Inactive Treating Comm ents Source Name Type Date Date Clinician Eql Propensi Active 2016-02 [facility] Ibuprofe ty to 0-10 College n adverse 00:00: of reaction 00 Medicin s to e drug Naproxen Propensi Active 2016-02 Frank ty to 0-10 College adverse 00:00: of reaction 00 Medicin s to e drug Naproxen Propensi Active Unknown - 2016-02 Uni vers ty to See comments 0-10 ity of adverse 00:00: [place] reaction 00 Medical s Branch NAPROXEN DRUG Active Unknown-Cmnt 2016-02 Un juma INGREDI 0-10 ity of 00:00: [place] 00 Medical Branch Nsaids Drug Active Nausea And 2016-[address] (Non-Arthur Intolera Vomiting, 0-09 pain Paula es roidal nce Other (See 00:00: Medica l Anti-Inf Comments) 00 Cente r lammator y Drug) Nsaids Drug Active Nausea And 2016-[address] (Non-Arthur Intolera Vomiting, 0-09 pain Paula es roidal nce Other (See 00:00: Medica l Anti-Inf Comments) 00 Cente r lammator y Drug) Nsaids Propensi Active Other (See 2016-02 Abdominal [facility] ty to Comments) 0-09 pain College adverse 00:00: of reaction 00 Medicin s to e drug NSAIDS Drug Active N/V 2016-02 Univers (NON-ARTHUR Class 0-09 ity of ROIDAL 00:00: [place] ANTI-INF 00 Medical LAMMATOR Branch Y DRUG) Ibuprofe Propensi Active Nausea Univer s n ty to and/or 10-26 ity of adverse Vomiting 00:00: [place] reaction 00 Medical s Branch IBUPROFE DRUG Active N/V 2016-0 Univers N INGREDI 9-12 ity of 00:00: [place] 00 Medical Branch Social History Social Habit Start Date Stop Date Quantity Comments Source History SDOH [facility] Alcohol Frequency Medical Center History SDOH [facility] Alcohol Std Medical Cente r Drinks History SDOH [facility] Alcohol Binge Medical [address] ter Exposure to Not sure University of SARS-CoV-2 [place] [facility] (event) Branch Alcohol intake 2016-11-25 2016-11-25 Current drinker of [facility] 00:[facility]00 alcohol (finding) Medical Center Tobacco use and 2016-11-22 2016-11-[address] [facility] Estrellita kes exposure 00:00:00 00:00:00 Medical Center Alcohol Comment 2016-11-22 2016-11-[address] [facility] 00:00:00 00:00:00 [facility] Center Sex Assigned At [address] Estrellita kes 00:00:00 00:00:00 Medical Center Smoking Status Start Date Stop Date Source Never smoker [facility] Medications Ordered Filled Start Stop Current Ordering Indication Dosage Frequency Signature Comments Components Source Medication Medication Date Date Medication? Clinician (SIG) Name Name lovastatin Yes 20mg Take 20 mg U nivers (MEVACOR) 7-25 by mouth ity of 20 mg 19:18: at [place] tablet 05 bedtime. Medical Branch losartan Yes 100mg Take 100 Univ ers (COZAAR) 7-25 mg by ity of 100 mg 19:18: mouth [place] tablet 05 daily. Medical Branch lovastatin Yes 20mg Take 20 mg U nivers (MEVACOR) 7-25 by mouth ity of 20 mg 19:18: at [place] tablet 05 bedtime. Medical Branch losartan Yes 100mg Take 100 Univ ers (COZAAR) 7-25 mg by ity of 100 mg 19:18: mouth [place] tablet 05 daily. Medical Branch Acetaminoph 2016-02 Yes Take by [place] [facility] (TYLENOL 1-27 mouth. Colleg e OR) 17:27: of 20 Medicin e rivaroxaban 2016-02 Yes 10mg Take [address] (XARELTO) 0-26 tablet (10 Luke s 10 mg Tab 00:00: mg total) Med ical tablet 00 by mouth Center daily with dinner. tamsulosin 2016-02 Yes .4mg QD Take 1 [facility] S t (FLOMAX) 0-26 capsule [facility] 0.4 mg Cp24 00:00: (0.4 mg Med ical 24 hr 00 total) by Center capsule mouth daily. rivaroxaban 2016-02 Yes 10mg Take [address] (XARELTO) 0-26 tablet (10 Luke s 10 mg Tab 00:00: mg total) Med ical tablet 00 by mouth Center daily with dinner. tamsulosin 2016-02 Yes .4mg QD Take 1 [facility]I S t (FLOMAX) 0-26 capsule [facility] 0.4 mg Cp24 00:00: (0.4 mg Med ical 24 hr 00 total) by Center capsule mouth daily. famotidine 2016-02 Yes 20mg Q.5D Take 1 [facility]I S t (PEPCID) 20 0-25 tablet (20 Esrtellita kes MG tablet 00:00: mg total) Med ical 00 by mouth 2 Center (two) times daily. famotidine 2016-02 Yes 20mg Q.5D Take 1 [facility]I S t (PEPCID) 20 0-25 tablet (20 Estrellita kes MG tablet 00:00: mg total) Med ical 00 by mouth 2 Center (two) times daily. losartan 2016-02 Yes 25mg Take 25 mg [place] [facility] (COZAAR) 25 0-10 by mouth Jenelle ege MG tablet 15:23: daily. of 59 Medicin e lovastatin 2016-02 Yes 10mg Take 10 mg [facility] (MEVACOR) 0-10 by mouth Colleg e 10 MG 15:22: every of tablet 48 evening. Medicin e Losartan Losartan Yes Iain 1 tablet C ommon Potassium Potassium [place] [facility] - [facility] Lovastatin Lovastatin Yes Iain 1 tablet Common [place] with the [facility] evening - [facility] meal [facility] Immunizations Ordered Filled Immunization Date Status Comments Sour e Immunization Name Name SARS-COV-2 COVID-19 2020-06-14 Completed Unive rsity of PFIZER VACCINE 00:00:00 [facility] SARS-COV-2 COVID-19 2020-06-14 Completed Unive rsity of PFIZER VACCINE 00:00:00 [facility] SARS-COV-2 COVID-19 2020-05-24 Completed Unive rsity of PFIZER VACCINE 00:00:00 [facility] SARS-COV-2 COVID-19 2020-05-24 Completed Unive rsity of PFIZER VACCINE 00:00:00 [facility] Vital Signs Vital Name Observation Time Observation Value Comments Source Systolic blood 2020-09-07 19:17:00 134 mm[Hg] Univer sity of pressure [facility] Diastolic blood 2020-09-07 19:17:00 84 mm[Hg] Unive rsity of pressure [facility] Heart rate 2020-09-07 19:17:00 73 /min Universi ty of [facility] Body temperature 2020-09-07 19:17:00 36.83 Roxy Univ ersity of [facility] Respiratory rate 2020-09-07 19:17:00 16 /min Univ ersity of [facility] Body height 2020-09-07 19:17:00 170.2 cm Universi ty of [facility] Body weight 2020-09-07 19:17:00 111.131 kg Universi ty [facility] BMI 2020-09-07 19:17:00 38.37 kg/m2 Universi ty [facility] Oxygen saturation in 2020-09-07 19:17:00 99 /min University of Arterial blood by [facility] Pulse oximetry Branch Systolic blood 2018-10-19 14:25:00 146 mm[Hg] [facility] pressure Medicine Diastolic blood 2018-10-19 14:25:00 90 mm[Hg] [facility] Medicine Heart rate 2018-10-19 14:25:00 69 /min [facility] Body height 2018-10-19 14:25:00 170.2 cm [facility] Body weight 2018-10-19 14:25:00 111.131 kg [facility] BMI 2018-10-19 14:25:00 38.37 kg/m2 [facility] Systolic blood 2018-10-19 14:25:00 146 mm[Hg] [facility] pressure Medicine Diastolic blood 2018-10-19 14:25:00 90 mm[Hg] [facility] pressure Medicine Heart rate 2018-10-19 14:25:00 69 /min [facility] Body height 2018-10-19 14:25:00 170.2 cm [facility] Body weight 2018-10-19 14:25:00 111.131 kg [facility] BMI 2018-10-19 14:25:00 38.37 kg/m2 [facility] Procedures Procedure Date / Time Performed Performing Clinician Sourc e POCT GRP A STREP 2020-09-07 19:32:00 [facility] (MOLECULAR) [facility] Plan of Care Planned Activity Planned Date Details Comments Source Future Scheduled ORT - XR KNEE BILAT Ordered: [facility] of Test 4V (CHARGE ONLY) 10/19/2018 Medicine [code = 68055] Future Scheduled COLON CANCER [facility] of Test SCREENING: Medicine COLONOSCOPY [code = COLON CANCER SCREENING: COLONOSCOPY] Future Scheduled TETANUS SHOT (ADULT) [facility] of Test [code = TETANUS SHOT Medicin e (ADULT)] Future Scheduled BMI FOLLOW UP PLAN [facility] of Test [code = BMI FOLLOW Medicine UP PLAN] Future Scheduled HEPATITIS C [facility] of Test SCREENING [code = Medicine HEPATITIS C SCREENING] Future Scheduled HIV SCREENING [code [facility] or College of Test = HIV SCREENING] Medicine Future Scheduled FLU VACCINE > 6 [facility] ollege of Test MONTHS [code = FLU Medicine VACCINE > 6 MONTHS] Encounters Start End Encounter Admission Attending Care Care Encounter Source Date/Time Date/Time Type Type Clinicians Facility Department ID 2020-09-11 2020-09-11 Telephone Evan [facility] [id number] Univers 00:00:00 00:00:00 Surya Aranda [facility] [id number] ittatiana [facility] [id number] Tristen as Professio [id number] [address] Office Building One 2020-09-07 2020-09-07 Outpatient R ELIANA [facility] [id number] Univers 15:20:00 15:20:00 MARCO A [facility] 2020-09-07 2020-09-07 Urgent Surya Gordon [facility] [id number] Univers 14:12:48 14:46:14 Care Marco A Monroy [facility] [id number]. 10 [facility] [id number] Tristen as Leonardaio [id number] Dc dical [address] Office [facility] One 2020-06-14 2020-06-14 Outpatient TRAVIS [facility] [id number] Univers 09:20:00 09:20:00 WINSTON [facility] 2020-05-24 2020-05-24 Outpatient R TRAVIS [facility] [id number] [facility] 09:25:00 09:25:00 WINSTON [facility] 2018-10-19 2018-10-19 Office VelasquezDAV theodore [id number] [facility] 08:51:17 12:18:39 Visit Ricky AMBULATOR [id number] College Y [id number] of [id number] [facility] 600 e 2018-10-19 2018-10-19 Office DAV Velasquez [id number] 08:51:17 12:18:39 Visit Ricky AMBULATOR [id number] Y [id number] 2017-09-27 2017-09-27 [facility] [id number] Common 16:17:00 16:17:00 t Specialty/U Sp yesi Specialty roly - [facility] /Urology Clinic [facility] 2017-09-14 2017-09-14 Out[facility] [id number] Common 14:45:00 14:45:00 t [employer] [facility] it [facility] Family Medicine [facility] Results Test Description Test Time Test Comments Results Result Comments Source POCT GRP A STREP (MOLECULAR) 2020-09-07 19:32:00 Test Item Value Reference Range Interpretation Comme nts POCT GP A STREP (test code = 59099-5) Negative Negative - Negat rigoebrto Lab Interpretation (test code = 80978-7) [id number] 13:17:00 Test Item Value Reference Range Interpretation Comments CULTURE (BEAKER) (test code = 1095) No growth COMPREHENSIVE METABOLIC [id number] 08:09:00 Test Item Value Reference Range Interpretation [...] PATIEN TS. CBC W/PLT COUNT & AUTO [id number] 07:53:00 Test Item Value Reference Range Interpretation [...] PERCENT (BEAKER) (test code = 2801) PROTHROMBIN [id number] 06:49:00 Test Item Value Reference Range Interpretation Comments PROTIME (BEAKER) (test code = 15.9 seconds 11.7-14.7 H 759) INR (BEAKER) (test code = 370) 1.3 <=5.9 RECOMMENDED COUMADIN/WARFARIN INR THERAPY RANGESSTANDARD DOSE: 2.0 - 3.0 Includes: PROPHYLAXIS for venous thrombosis, systemic embolization; TREATMENT for venous thrombosis and/or pulmonary embolus.HIGH RISK: Target INR is 2.5-3.5 for patients with mechanical heart valves.RAPID STREP A [id number] 17:49:00 Test Item Value Reference Range Interpretation Comments STREP A ANTIGEN (BEAKER) (test code Negative Negative = 556) URINALYSIS W/ [id number] 17:39:00 Test Item Value Reference Range Interpretation [...] Catch = 2795) RAD, ABDOMEN/KUB, 1 VIEW [id number] 10:41:00Reason for exam:->constipation FINAL REPORT Two abdomen images Discussion: Nonspecific bowel gas pattern with air-filled mildly prominent small bowel loops. No particularly concerning degree of retained feces. No evidence of free intraperitoneal air. Signed: Denzel Rebolledo Verified Date/Time: 12/03/2016 10:41:38 Reading Location: [facility] Radiology Reading Room TISSUE EXAM 2016-12-02 09:25:00Surgical Pathology Report Case: [id number] Authorizing Provider: Ricky Velasquez Collected: 11/24/2016 1154 MD Devan Ordering Location: [facility] Received: 11/24/2016 1307 SERVICES Pathologist: Jose G Shepard MD Specimens: A) - Condyle,Left Knee B) - Condyle,Right Knee A. BONE AND SOFT TISSUE, LEFT KNEE, ARTHROPLASTY: - OSTEOARTHRITIS AND CHRONIC SYNOVITIS B. BONE AND SOFT TISSUE, RIGHT KNEE, ARTHROPLASTY: - OSTEOARTHRITIS AND CHRONIC SYNOVITIS Signing Pathologist Direct Phone Line: [phone] signed by Jose G Shepard MD on 12/02/2016 at 9:25 [id number] left kneeA. Left knee condyle; B. Right [...] reveals subsynovial edema with chronic inflammation.HEMOGLOBIN AND [id number] 09:32:00 Test Item Value Reference Range Interpretation Comments HEMOGLOBIN (BEAKER) (test code = 11.9 GM/DL 13.7-17.5 L 410) HEMATOCRIT (BEAKER) (test code = 36.1 % 40.1-51.0 L 411) BASIC METABOLIC [id number] 08:09:00 Test Item Value Reference Range Interpretation [...] APPLICABLE FOR DIALYSIS PATIEN TS. HEMOGLOBIN AND [id number] 07:45:00 Test Item Value Reference Range Interpretation Comments HEMOGLOBIN (BEAKER) (test code = 13.8 GM/DL 13.7-17.5 410) HEMATOCRIT (BEAKER) (test code = 40.7 % 40.1-51.0 411) BASIC METABOLIC [id number] 06:44:00 Test Item Value Reference Range Interpretation [...] APPLICABLE FOR DIALYSIS PATIEN TS. HEMOGLOBIN AND [id number] 06:19:00 Test Item Value Reference Range Interpretation Comments HEMOGLOBIN (ROMI) (test code = 14.7 GM/DL 13.7-17.5 410) HEMATOCRIT (BEAKER) (test code = 43.7 % 40.1-51.0 411) RAD, KNEE, 1 OR 2 VIEWS, [id number] 16:42:00Of operative side while in recovery room.Reason for exam:->eval implantsFINAL REPORT COMPARISON: No comparison left knee imaging HISTORY: Left knee pain, status post knee arthroplasty FINDINGS: AP and lateral radiographs of the left knee demonstrate postoperative changes consistent with total arthroplasty. Arthroplasty alignment appears anatomic. No periprosthetic fracture is identified. Signed: Justino Rivera Verified Date/Time: 11/24/2016 16: 42:12 Reading Location: [facility] Radiology Reading Room RAD, KNEE, 1 OR 2 VIEWS, [id number] 16:33:00Of operative side while in recovery room.Reason for exam:->eval implantsFINAL REPORT EXAM: AP and lateral views of the right knee HISTORY PROVIDED: Evaluate implants COMPARISON: None available IMPRESSION:The patient is status post right total knee arthroplasty with hardware in place in gross alignment. No fracture or dislocation. There is postoperative soft tissue swelling and air. Signed: Justino Khan Verified Date/Time: 11/24/2016 16:33:57 Reading Location: [facility] Mammo Reading Room
[2022-07-11 18:16] LABS: Absolute Lymphocytes (CBC) 1.4 K/uL (0.7-4.9); Hematocrit 46.9 % (39.6-49.0); Lymphocytes % 13.2 % (15.3-44.8); MCV 96.1 fL (80-100); MPV 7.5 fL (7.6-11.3); RBC Red Blood Cell Count 4.88 M/uL (4.33-5.43)
--- NOTE | 2022-07-11 18:22 | RAD REPORT ---
EXAM DESCRIPTION: CT - Head Brain Wo Cont - 07/11/2022 6:11 pm CLINICAL HISTORY: DIZZINESS COMPARISON: No comparisons TECHNIQUE: All CT scans are performed using dose optimization technique as appropriate and may inclu de automated exposure control or mA/KV adjustment according to patient size. FINDINGS: No intracranial hemorrhage, hydrocephalus or extra-axial fluid collection.No areas of brai n edema or evidence of midline shift. The paranasal sinuses and mastoids are clear. The calvarium is intact. IMPRESSION: No acute intracranial abnormality.
[2022-07-11 18:33] LABS: Potassium 3.3 mEq/L (3.5-5.1); Troponin High Sensitivity 3.3 pg/mL (<58.9)
--- NOTE | 2022-07-11 19:28 | RAD REPORT ---
EXAM DESCRIPTION: RAD - Chest Single View - 07/11/2022 7:23 pm CLINICAL HISTORY: dizziness COMPARISON: <Comparisons> FINDINGS: Lines: None. Lungs: No evidence of edema or pneumonia. Pleural: No significant pleural effusions or pneumothorax. Cardiac: The heart size is within normal limits. Mediastinum: Within normal limits. Bones: No acute fractures. Other: None IMPRESSION: No acute cardiopulmonary disease.
[2022-07-11] MEDS ORDERED: NA CHLORIDE 0.9% 500 ML ONE (20:01)
[2022-07-11] MEDS ORDERED: MECLIZINE HCL 12.5 MG TAB ONE (20:01)
[2022-07-11] MEDS ORDERED: METOCLOPRAMIDE 10 MG/2mL INJ ONE (20:01)
--- NOTE | 2022-07-11 20:40 | EDPHYS ---
Physician Documentation [facility] Name: Alan Tapia Age: 56 yrs Sex: Male : 1965 Arrival Date: 07/11/2022 Time: 17:29 Bed 8 Private MD: ED Physician Ramin Bartlett HPI: 07/11 18:00 This 56 yrs old Male presents to ER via Ambulatory with complaints of cp Dizziness. 18:00 The patient presents with dizziness, generalized weakness, lightheadedness, sense of cp spinning. 18:00 Onset: The symptoms/episode began/occurred yesterday, after bending over to help his cp get up. Associated signs and symptoms: Pertinent negatives: abdominal pain, blurred vision, chest pain, diaphoresis, focal weakness, numbness, syncope, vomiting. Patient's baseline: Neuro: alert and fully oriented, Motor: no deficits, Ambulation: walks without assistance, Speech: normal. 18:00 Severity of symptoms: in the emergency department the symptoms are unchanged despite cp home interventions. Historical: - Allergies: 17:47 Ibuprofen; nj1 17:47 Advil; nj1 17:47 Aspirin; nj1 - PMHx: 17:47 High Cholesterol; Hypertension; nj1 - PSHx: 17:47 Knee replacement, prashant; nj1 - Immunization history:: Client reports receiving the 2nd dose of the Covid vaccine. - Social history:: Smoking status: Patient denies any tobacco usage or history of. ROS: 18:05 Constitutional: Negative for body aches, chills, fever, poor PO intake. cp 18:05 Cardiovascular: Negative for chest pain, edema, palpitations. cp 18:05 Respiratory: Negative for cough, shortness of breath, wheezing. Exam: 18:10 Constitutional: The patient appears in no acute distress, alert, awake, cp non-diaphoretic, non-toxic, well developed, well nourished, obese. 18:10 Head/Face: Normocephalic, atraumatic. cp 18:10 Eyes: Periorbital structures: appear normal, Pupils: equal, round, and reactive to light and accomodation, Extraocular movements: intact throughout, Conjunctiva: normal, no exudate, no injection, Sclera: no appreciated abnormality, Lids and lashes: appear normal, bilaterally. 18:10 ENT: External ear(s): are unremarkable, Ear canal(s): are normal, clear, TM's: dullness, bilaterally, Nose: is normal, Mouth: Lips: moist, Oral mucosa: pink and intact, moist, Posterior pharynx: is normal, airway is patent, no erythema, no exudate. 18:10 Neck: ROM/movement: is normal, is supple, without pain, no range of motions limitations, no nuchal rigidity. 18:10 Chest/axilla: Inspection: normal, Palpation: is normal, no crepitus, no tenderness. 18:10 Cardiovascular: Rate: normal, Rhythm: regular, Edema: is not appreciated, JVD: is not appreciated. 18:10 Respiratory: the patient does not display signs of respiratory distress, Respirations: normal, no use of accessory muscles, no retractions, labored breathing, is not present, Breath sounds: are clear throughout, no decreased breath sounds, no stridor, no wheezing. 18:10 Abdomen/GI: Exam negative for discomfort, distension, guarding, Inspection: abdomen appears normal. 18:10 Back: pain, is absent, ROM is normal. 18:10 Skin: cellulitis, is not appreciated, no rash present. 18:10 Neuro: Orientation: to person, place \T\ time. Mentation: is normal, Cerebellar function: is grossly normal, Motor: moves all fours, strength is normal, Sensation: is normal, Gait: is steady, at a normal pace, without difficulty. Vital Signs: 17:44 BP 133 / 85; Pulse 69; Resp 18; Temp 98(O); Pulse Ox 100% ; Weight 113.4 kg; Height 5 nj1 ft. 7 in. ; Pain 0/10; 19:24 BP 127 / 78; Pulse 64; Resp 19 S; Pulse Ox 95% on R/A; as6 20:32 BP 130 / 77 Supine; Pulse 63; as6 20:34 BP 134 / 82 Sitting; Pulse 64; as6 20:36 BP 125 / 89 Standing; Pulse 65; as6 17:44 Body Mass Index 39.16 (113.40 kg, 170.18 cm) [facility] 17:44 Pain Scale: Adult nj1 MDM: 17:54 Patient medically screened. cp 20:38 Data reviewed: vital signs, nurses notes, lab test result(s), EKG, radiologic studies, cp CT scan, plain films. 20:38 Differential diagnosis: cardiac arrhythmia, generalized weakness, GI bleed, cp hypovolemia, idiopathic dizziness, vertigo. Consideration of Admission/Observation Escalation of care including admission/observation considered. I considered the following discharge prescriptions or medication management in the emergency department Medications were administered in the Emergency Department. See MAR. Care significantly affected by the following chronic conditions: Hypertension. Counseling: I had a detailed discussion with the patient and/or guardian regarding: the historical points, exam findings, and any diagnostic results supporting the discharge/admit diagnosis, lab results, radiology results, the need for outpatient follow up, a family practitioner, to return to the emergency department if symptoms worsen or persist or if there are any questions or concerns that arise at home. Response to treatment: the patient's symptoms have markedly improved after treatment, and as a result, I will discharge patient. 07/11 17:54 Order name: Basic Metabolic Panel; Complete Time: 19:38 cp 07/11 19:38 Interpretation: Normal except: NA 131; K 3.3; GLUC 128. cp 07/11 17:54 Order name: CBC with Diff; Complete Time: 19:38 cp 07/11 17:54 Order name: Troponin HS; Complete Time: 19:38 cp 07/11 17:54 Order name: CT Head Brain wo Cont; Complete Time: 19:38 cp 07/11 17:54 Order name: XRAY Chest (1 view); Complete Time: 19:38 cp 07/11 17:54 Order name: EKG; Complete Time: 17:55 cp 07/11 17:54 Order name: Cardiac monitoring; Complete Time: 19:25 cp 07/11 17:54 Order name: EKG - Nurse/Tech; Complete Time: 18:09 cp 07/11 17:54 Order name: IV Saline Lock; Complete Time: 18:09 cp 07/11 17:54 Order name: Labs collected and sent; Complete Time: 18:09 cp 07/11 17:54 Order name: O2 Per Protocol; Complete Time: 19:25 cp 07/11 17:54 Order name: O2 Sat Monitoring; Complete Time: 19:25 cp 07/11 19:39 Order name: Orthostatics; Complete Time: 20:40 cp Administered Medications: 20:06 Drug: Meclizine PO 25 mg Route: PO; as6 20:47 Follow up: Response: No adverse reaction as6 20:06 Drug: metoCLOPramide IVP 10 mg Route: IVP; Site: left antecubital; 20:47 Follow up: Response: No adverse reaction as 20:06 Drug: NS 0.9% IV 500 ml Route: IV; Rate: bolus; Site: left antecubital; 20:47 Follow up: Response: No adverse reaction; IV Status: Completed infusion; IV Intake: as6 500ml 20:40 Drug: Potassium PO Effervescent Tablet 50 mEq Route: PO; 20:47 Follow up: Response: No adverse reaction as6 Disposition Summary: 07/11/22 20:39 Discharge Ordered Location: Home cp Problem: new cp Symptoms: have improved cp Condition: Stable cp Diagnosis - Dizziness and giddiness cp Followup: cp - With: Private Physician - When: 2 - 3 days - Reason: Recheck today's complaints Discharge Instructions: - Discharge Summary Sheet cp - Dizziness cp Forms: - Medication Reconciliation Form cp - Thank You Letter cp - Antibiotic Education cp - Prescription Opioid Use cp Prescriptions: - Meclizine 25 mg Oral Tablet - take 1 tablet by ORAL route every 8 hours As needed; 30 tablet; Refills: 0, cp Product Selection Permitted - Zofran 4 mg Oral Tablet - take 1 tablet by ORAL route every 12 hours As needed; 20 tablet; Refills: 0, cp Product Selection Permitted Signatures: Dispatcher [employer] Ramin Wei PA PA cp Slawson, Ashby RN RN as6 Zoey Marlow RN RN nj1
--- NOTE | 2022-07-11 20:40 | ER ---
Nurse's Notes [facility] Name: Alan Tapia Age: 56 yrs Sex: Male : 1965 Arrival Date: 07/11/2022 Time: 17:29 Bed 8 Private MD: Diagnosis: Dizziness and giddiness Presentation: 07/11 17:44 Chief complaint: Patient states: Dizziness since yesterday when he helped his get nj1 up, once he got up from bending the dizziness started, has eased up some but never gone away. States room is spinning when he lays in bed. Coronavirus screen: Vaccine status: Patient reports receiving the 2nd dose of the covid vaccine. Ebola Screen: Patient denies travel to an Ebola-affected area in the 21 days before illness onset. Initial Sepsis Screen: Does the patient meet any 2 criteria? No. Patient's initial sepsis screen is negative. Does the patient have a suspected source of infection? No. Patient's initial sepsis screen is negative. Risk Assessment: Do you want to hurt yourself or someone else? Patient reports no desire to harm self or others. Onset of symptoms was July 10, 2022. 17:44 Method Of Arrival: Ambulatory nj1 17:44 Acuity: EVELYN 3 nj1 Historical: - Allergies: 17:47 Ibuprofen; nj1 17:47 Advil; nj1 17:47 Aspirin; nj1 - PMHx: 17:47 High Cholesterol; Hypertension; nj1 - PSHx: 17:47 Knee replacement, prashant; nj1 - Immunization history:: Client reports receiving the 2nd dose of the Covid vaccine. - Social history:: Smoking status: Patient denies any tobacco usage or history of. Screenin:24 [facility] ED Fall Risk Assessment (Adult) Score/Fall Risk Level 0 - 2 = Low Risk. Abuse as6 screen: Denies threats or abuse. Denies injuries from another. Nutritional screening: No deficits noted. Tuberculosis screening: No symptoms or risk factors identified. Assessment: 19:23 General: Appears in no apparent distress. Behavior is calm, cooperative. Pain: Denies as6 pain. Neuro: Level of Consciousness is awake, alert, obeys commands, Oriented to person, place, time, situation, Reports dizziness. Cardiovascular: Heart tones S1 S2 present Capillary refill < 3 seconds Patient's skin is warm and dry. Respiratory: Respiratory effort is even, unlabored, Respiratory pattern is regular, symmetrical, Breath sounds are clear bilaterally. Derm: Skin is intact, is healthy with good turgor. Vital Signs: 17:44 BP 133 / 85; Pulse 69; Resp 18; Temp 98(O); Pulse Ox 100% ; Weight 113.4 kg; Height 5 nj1 ft. 7 in. ; Pain 0/10; 19:24 BP 127 / 78; Pulse 64; Resp 19 S; Pulse Ox 95% on R/A; as6 20:32 BP 130 / 77 Supine; Pulse 63; as6 20:34 BP 134 / 82 Sitting; Pulse 64; as6 20:36 BP 125 / 89 Standing; Pulse 65; as6 17:44 Body Mass Index 39.16 (113.40 kg, 170.18 cm) nj1 17:44 Pain Scale: Adult [facility] ED Course: 17:34 Patient arrived in ED. ts1 17:47 Triage completed. nj1 17:49 Arm band placed on left wrist. nj1 17:52 Ramin Lloyd PA is PHCP. cp 17:52 Ramin Bartlett MD is Attending Physician. cp 18:09 Basic Metabolic Panel Sent. bc6 18:09 CBC with Diff Sent. bc6 18:09 Troponin HS Sent. bc6 18:09 Inserted saline lock: 20 gauge in left antecubital area, using aseptic technique. bc6 18:13 CT Head Brain wo Cont In Process Unspecified. EDMS 19:21 Charlene Lan, RN is Primary Nurse. aa9 19:25 XRAY Chest (1 view) In Process Unspecified. EDMS 19:25 Bed in low position. Call light in reach. Side rails up X 1. Client placed on as6 continuous cardiac and pulse oximetry monitoring. NIBP monitoring applied. 20:42 No provider procedures requiring assistance completed. as6 20:47 IV discontinued, intact, bleeding controlled, No redness/swelling at site. Pressure as6 dressing applied. Administered Medications: 20:06 Drug: Meclizine PO 25 mg Route: PO; as6 20:47 Follow up: Response: No adverse reaction as6 20:06 Drug: metoCLOPramide IVP 10 mg Route: IVP; Site: left antecubital; as6 20:47 Follow up: Response: No adverse reaction as6 20:06 Drug: NS 0.9% IV 500 ml Route: IV; Rate: bolus; Site: left antecubital; as6 20:47 Follow up: Response: No adverse reaction; IV Status: Completed infusion; IV Intake: as6 500ml 20:40 Drug: Potassium PO Effervescent Tablet 50 mEq Route: PO; as6 20:47 Follow up: Response: No adverse reaction as6 Medication: 20:41 VIS not applicable for this client. as6 Intake: 20:47 IV: 500ml; Total: 500ml. as6 Outcome: 20:39 Discharge ordered by MD. cp 20:46 Discharged to home ambulatory. as6 20:46 Condition: stable 20:46 Discharge instructions given to patient, Instructed on discharge instructions, follow up and referral plans. medication usage, Demonstrated understanding of instructions, follow-up care, medications, Prescriptions given X 2. 20:47 Patient left the ED. as6 Signatures: Dispatcher [employer] EDMS Ramin Lloyd PA PA cp Slawson, Ashby RN RN as6 Charlene Lan RN RN aa9 Lotus Garces 6 Zoey Marlow RN RN nj1 Cassandra Summers, PAS PAS ts1
[2022-07-11 21:50] VITALS: BP 115/69; TEMP 98.9; O2SAT 99
--- NOTE | 2022-07-14 07:13 | EKG ---
Test Date: 2022-07-11 Test Time: 18:01:02 Maid Supervisor: JAXON MEASUREMENT RESULTS: Intervals: Rate: 64 ME: 162 QRSD: 90 QT: 414 QTc: 427 [place]: P: 66 ME: 162 QRS: -16 T: 65 INTERPRETIVE STATEMENTS: Sinus rhythm with premature atrial complexes Otherwise normal ECG Compared to ECG 02/20/2020 20:55:34 Atrial premature complex(es) now present Electronically Signed On 07-14-22 07:07:28 CDT by Jayden Bey
== END 2022-07-11 20:47 | disposition home or self-care (01) ==
LOC: ER 17:29
DX: R42 Dizziness and giddiness (principal); I10 Essential (primary) hypertension; Z88.6 Allergy status to analgesic agent
CPT/HCPCS: 96361; 93005; 85025; 80048; 36415; 84484; 70450; 71045; 96374; 99284; J8597; J2765; J7040